=== PATIENT | female | born 1935 | race Caucasian/White ===

== ENCOUNTER → 2017-02-18 | Day surgery (SDC) | payer MEDICARE, BC ==
[2017-02-13 11:47] VITALS: BMI 50.6
[~2017-02-18] MED LIST: ALPRAZolam 0.25 MG TAB PO PRN; ASPIRIN 325 MG TAB PO ONE; IODIXANOL 320 MG/ML 100 ML INTRAARTER ONE; LIDOCAINE 2% INJ 20 MG/ML SQ ONE; MIDAZOLAM 2 MG/2 ML VIAL IV ONE; MIDAZOLAM 2 MG/2 ML VIAL IVP ONE; MIDAZOLAM 2 MG/2 ML VIAL ONE; RX INFO: IV CONTRAST WAS GIVEN 1 EACH MISC MISCELLANE PRN; SODIUM CHLORIDE 0.9% 1,000 ML IV SCH; SODIUM CHLORIDE 0.9% 1,000 ML in EMPTY BAG 1 BAG IV ONE; VERAPAMIL SYRINGE (5 MG/10 ML) INTRAARTER ONE; diphenhydrAMINE 50 MG/ML 1 ML VIAL IVP ONE; fentaNYL (PF) 50 MCG/ML 2 ML AMP IVP ONE; fentaNYL (PF) 50 MCG/ML 2 ML AMP ONE
--- NOTE | 2017-02-18 08:50 | P.PCN ---
Date of Procedure: 02/18/17 Preoperative Diagnosis: Severe aortic stenosis, hypertension and hypercholesterolemia Postoperative Diagnosis: Severe aortic stenosis Procedure(s) Performed: Implants: Disposition: other (Moderate conscious sedation was provided with Versed and Benadryl for 30 minutes. Oxygenation was monitored closely.) Indications for Procedure: Operative Findings: Description of Procedure: Left heart catheterization and coronary angiography next sentence performed by Dr. JANICE Calderon Clinical information: This patient was brought in for a cardiac catheterization and transesophageal echo. Risks benefits options were explained to her. She has severe aortic stenosis with worsening gradient increasing shortness of breath also obesity moderate pulmonary hypertension probable sleep apnea syndrome. She also has hypertension and hypercholesterolemia Procedure note: Under aseptic precaution since local anesthesia a 6-Italian introducer was placed in the right radial artery. I made one catheter was used to perform selective coronary angiography of the right coronary artery. I used a JL4 catheter for left coronary artery. A pigtail catheter was used to cross the aortic valve. Hemodynamics were measured. A sheath was taken out and TR band applied as per protocol. The oxygenation in her fingers was good with a saturation of 93%. Good pulse was noted. Patient was sent to her room in stable condition. Findings were discussed with her. She does not have any significant obstructive CAD. She has a right dominant system. There is evidence of severe aortic stenosis with a mean gradient of 36 mmHg. Findings were discussed with the patient and her family. She will have a transesophageal echo today and then be discharged later on and I will see her in the office on the 13th of this month. Except Cardiac catheterization findings: The left ventricle end-diastolic pressure was 17 mmHg. The peak gradient on pullback was 56 mmHg and the mean gradient as obtained by the computer was 36 mmHg suggestive of severe aortic stenosis. Right heart catheterization was not performed. Coronary angiography findings: Right coronary artery dominant vessel free of significant disease, distally bifurcates into PDA and PLV both of which supply a fair amount of myocardium. No significant disease in the dominant RCA. Left main coronary artery this is a sharp patent disease-free vessel that bifurcates into LAD and circumflex. Left anterior descending coronary artery good caliber vessel extends along the anterior wall gives off septal and diagonal branches and runs all the way to the apex. There are minor irregularities but no significant obstructive CAD as noted. Left posterior circumflex coronary artery this is a nondominant vessel that gives off a single obtuse marginal that runs laterally there are minor irregularities. This is a fair caliber fair distribution vessel. There is a vessel in the AV groove that has diffuse disease but no significant stenosis is noted Left ventricular, was not performed. She tolerated the procedure well without complications. She will have a QUINCY at noon and will be discharged at 5 PM if stable and I will see her in the office next week.
[2017-02-18 08:53] VITALS: TEMP 98
[2017-02-18] MEDS: BENZOCAINE SPRAY 100 APPLIC/CAN MUCOUS MEM ONE ×2 (10:10→10:54)
--- NOTE | 2017-02-18 10:45 | P.OP ---
Date of Procedure: 02/18/17 Preoperative Diagnosis: PROCEDURE: Transesophageal echocardiogram. INDICATION: aortic stenosis. PROCEDURE NOTE: After obtaining informed consent, transesophageal echocardiogram was performed in the left lateral position using an Omniplane probe. Local and IV sedation were obtained using Xylocaine spray, 1 mg of Versed and 25 mcg of fentanyl. The patient tolerated the procedure well without any obvious immediate complications. total sedation time was 15 minutes FINDINGS: Mitral valve: [mitral calcification with moderate central mitral regurgitation] . Aortic valve: [3 leaflet valve heavily calcified with severe restriction in leaflet mobility and a valve area of 0.6 cmby planimetry technique there is mild regurgitation noted]. Tricuspid:valve: [mild tricuspid regurgitation] Pulmonary valve: [normal]. Left ventricle: [Normal size and systolic function] with an ejection fraction of [60]%. Left atrium: [enlarged] Right atrium [mildly enlarged]. Left Artial Appendage: [] Interatrial septum: [There is no evidence of zmiab-us-icyl shunt by agitated saline contrast study. there is evidence of rrbx-vi-[id number] shunt by agitated saline contrast study]. Aorta: [ascending aorta appears dilated measures 4 cmthere is mild atherosclerotic changes noted]. CONCLUSIONS: 1. [severe aortic stenosis]. 2. [normal LV function]. 3. [czlq-zr-[id number] shunt across the interatrial septum 4. Moderate mitral regurgitation]. Postoperative Diagnosis: Procedure(s) Performed: Implants: Anesthesia: MAC Indications for Procedure: Operative Findings: Description of Procedure:
[2017-02-18 11:04] VITALS: RESP 16
[2017-02-18 16:11] VITALS: BP 144/62; PULSE 64
== END ==
LOC: CATHCVL 06:22 → EDSEX 12:00
PROVIDERS: ATTEND Internal Medicine Interventional Cardiology
DX: I08.3 Combined rheumatic disorders of mitral, aortic and tricuspid valves (principal); I10 Essential (primary) hypertension; G47.33 Obstructive sleep apnea (adult) (pediatric); E78.00 Pure hypercholesterolemia, unspecified; E78.5 Hyperlipidemia, unspecified; I27.2 Other secondary pulmonary hypertension; E66.9 Obesity, unspecified; Z79.899 Other long term (current) drug therapy; Z87.891 Personal history of nicotine dependence
CPT/HCPCS: 93312; 93320; 93325; 93458; 99152; 99153; C1769; C1894; J2001; J2250; J1200; Q9967; J3010; J1644

== ENCOUNTER 2020-02-22 12:47 | Inpatient (IN) | payer MEDICARE, BC ==
--- NOTE | 2020-02-22 13:12 | ED ---
General Adult HPI - General Chief complaint: Arrhythmia/Palpitations Stated complaint: Cardiac Problems Time Seen by Provider: 02/22/20 13:03 Source: patient Mode of arrival: EMS Limitations: no limitations - History of Present Illness Initial comments: Dictation was produced using [employer] dictation software. please excuse any grammatical, word or spelling errors. This patient was cared for during a federal and state declared state of emergency secondary to Covid 19 Chief Complaint: 84 yo female past medical history of dyslipidemia hypertension, thyroid disorder transfer [facility] for bradycardia History of Present Illness: 84-year-old female she was transferred here from [facility] for bradycardia. Patient states that her son convinced her to go get Covid testing earlier today. She did get the test however he started talking to the people at the [facility]. They recommended the patient doctor be notified. The ended up getting in contact with patient's travel manager. They were directed to [facility] were she was evaluated. Patient was having heart rates between 25 and 40. They did get in contact with patient's travel manager. Patient's travel manager recommended the patient be transferred to our emergency department for inpatient admission possible pacemaker. Patient states she's been feeling generally weak for the last 3-4 weeks. She has no pain complaints. She states that her weakness is more apparent with exertional activity. Patient does take metoprolol. The ROS documented in this emergency department record has been reviewed and confirmed by me. Those systems with pertinent positive or negative responses have been documented in the HPI. All other systems are other negative and/or noncontributory. PHYSICAL EXAM: General Impression: Alert and oriented x3, not in acute distress HEENT: Normocephalic atraumatic, extra-ocular movements intact, pupils equal and reactive to light bilaterally, mucous membranes moist. Cardiovascular: Heart regular rate and rhythm Chest: Able to complete full sentences, no retractions, no tachypnea Abdomen: abdomen soft, non-tender, non-distended, no organomegaly Musculoskeletal: Pulses present and equal in all extremities, no peripheral edema Motor: no focal deficits noted Neurological: CN II-XII grossly intact, no focal motor or sensory deficits noted Skin: Intact with no visualized rashes Psych: Normal affect and mood ED course: 82yo presents with bradycardia. Patient does have symptoms although they appear to be mild. She does not complain of any symptoms while at rest. As upon arrival shows heart rate of 33, 91% room air rest vital signs within acceptable limits. Chest her documentation was reviewed. Patient's metabolic panel shows normal electrolytes. She does have elevated renal markers. EKG performed in our emergency department showed findings concerning for high degree heart block. Patient was placed in ICU with consultation to cardiology. This patient case with Dr. Pierson is willing to accept patient care. EKG interpretation: Ventricular rate 31, sinus rhythm, QRS 104, QTC 399. Concern for high degree heart block. - Related Data Home Medications Medication Instructions Recorded Confirmed Ascorbic Acid [Vitamin C] 3,000 mg PO DAILY 02/13/17 02/18/17 Aspirin EC [Ecotrin Low Dose] 81 mg PO DAILY 02/13/17 02/18/17 Benazepril [Lotensin] 10 mg PO DAILY 02/13/17 02/18/17 Calcium Citrate/Vitamin D3 3 each PO HS 02/13/17 02/18/17 [Calcitrate + Vit D Caplet] Ipratropium-Albuterol Nebulize 3 ml INHALATION QID 02/13/17 02/18/17 [Duoneb 0.5 mg-3 mg/3 ml Soln] Levothyroxine Sodium [Synthroid] 125 mcg PO DAILY 02/13/17 02/18/17 Loratadine [Claritin] 10 mg PO DAILY 02/13/17 02/18/17 Multivit/Folic Acid/Vit K1 1 each PO DAILY 02/13/17 02/18/17 [One-A-Day Women's 50 Plus Tab] [place]-3 Fatty Acids [[place]-3] 3,000 mg PO DAILY 02/13/17 02/18/17 Potassium Chloride [Klor-Con 8] 8 meq PO Q2D 02/13/17 02/18/17 Pyridoxine HCl (Vitamin B6) 100 mg PO DAILY 02/13/17 02/18/17 [Vitamin B-6] Simvastatin [Zocor] 40 mg PO HS 02/13/17 02/18/17 Torsemide [Demadex] 20 mg PO DAILY 02/13/17 02/18/17 traMADol HCL [Ultram] 50 mg PO Q4HR PRN 02/13/17 02/18/17 Metoprolol Tartrate 25 mg PO DAILY 02/18/17 02/18/17 Allergies Allergy/AdvReac Type Severity Reaction Status Date / Time No Known Allergies Allergy Verified 02/22/20 12:54 Review of Systems ROS Statement: Those systems with pertinent positive or pertinent negative responses have been documented in the HPI. ROS Other: All systems not noted in ROS Statement are negative. Past Medical History Past Medical History: Cancer, COPD, Hyperlipidemia, Hypertension, Sleep Apnea/CPAP/BIPAP, Thyroid Disorder Additional Past Medical History / Comment(s): HX COLON AND UTERINE CANCER. USES CPAP-INSTRUCTED TO BRING AND LEAVE IN CAR IN CASE OF ADMISSION. PAST HX BLEEDING ULCER History of Any Multi-Drug Resistant Organisms: None Reported Past Surgical History: Appendectomy, Bowel Resection, Cholecystectomy, Hernia Repair, Hysterectomy, Joint Replacement, Orthopedic Surgery, Tonsillectomy Additional Past Surgical History / Comment(s): COLONOSCOPY AND EGD. LT SHOULDER REPLACEMENT. BILAT TKA. HERNIA REPAIR X 4. OVARIAN CYSTECTOMY X 2. CTR- BILAT Past Anesthesia/Blood Transfusion Reactions: No Reported Reaction Past Psychological History: Anxiety Smoking Status: Former smoker Past Alcohol Use History: None Reported Past Drug Use History: None Reported - Past Family History Mother Family Medical History: No Reported History General Exam Limitations: no limitations Course Vital Signs 02/22/20 12:54 Temperature 98.3 F Pulse Rate 33 L Respiratory 16 Rate Blood Pressure 133/110 O2 Sat by Pulse 91 L Oximetry Disposition Clinical Impression: Heart block Disposition: ADMITTED IP TO THIS HOSP Condition: Fair Referrals: Jerome Monroe MD [Primary Care Provider] - 1-2 days Decision Time: 13:44
[2020-02-22] MEDS ORDERED: NALOXONE 0.4 MG/ML 1 ML VIAL IV PRN (13:38)
[2020-02-22] MEDS ORDERED: SODIUM CHLORIDE 0.9% 1,000 ML IV SCH ×5 (13:45→19:45)
[2020-02-22 14:13] LABS: INR 1.1 (<1.2); Partial Thromboplastin Time 23.5 sec (22.0-30.0); Prothrombin Time 10.9 sec (9.0-12.0)
[2020-02-22] MEDS ORDERED: IV FLUID CONTINUATION 900 ML IV ONE (17:15)
--- NOTE | 2020-02-22 17:20 | P.CRDCN ---
History of Present Illness Consult date: 02/22/20 History of present illness: This is a 84-year-old female with history of hypertension, COPD and also aortic stenosis who had aortic valve replacement with percutaneous approach. Patient was being treated with metoprolol 50 mg morning and 25 in the evening. Patient went to the [facility] with complaints of shortness of breath and fatigue. Patient has occasional dizziness. She also significant edema of the legs. Patient was found to be in complete AV dissociation. Patient was transferred to [facility] for further evaluation. Patient is having heart rate is a 30 with complete AV dissociation. Patient is advised to have temporary pacemaker. Patient may need permanent pacemaker if heart rate doesn't improve after stopping the beta blockers. Further recommendation depending upon the clinical course. Review of Systems As per the chart Past Medical History Past Medical History: Cancer, COPD, Hyperlipidemia, Hypertension, Sleep Apnea/CPAP/BIPAP, Thyroid Disorder Additional Past Medical History / Comment(s): HX COLON AND UTERINE CANCER. USES CPAP-INSTRUCTED TO BRING AND LEAVE IN CAR IN CASE OF ADMISSION. PAST HX BLEEDING ULCER History of Any Multi-Drug Resistant Organisms: None Reported Past Surgical History: Appendectomy, Bowel Resection, Cholecystectomy, Hernia Repair, Hysterectomy, Joint Replacement, Orthopedic Surgery, Tonsillectomy Additional Past Surgical History / Comment(s): COLONOSCOPY AND EGD. LT SHOULDER REPLACEMENT. BILAT TKA. HERNIA REPAIR X 4. OVARIAN CYSTECTOMY X 2. CTR-BILAT Past Anesthesia/Blood Transfusion Reactions: No Reported Reaction Past Psychological History: Anxiety Smoking Status: Former smoker Past Alcohol Use History: None Reported Additional Past Alcohol Use History / Comment(s): QUIT SMOKING IN 1974 Past Drug Use History: None Reported - Past Family History Mother Family Medical History: No Reported History Medications and Allergies Home Medications Medication Instructions Recorded Confirmed Type Ascorbic Acid [Vitamin C] 1,000 mg PO DAILY 02/13/17 02/22/20 History Aspirin EC [Ecotrin Low Dose] 81 mg PO DAILY 02/13/17 02/22/20 History Benazepril [Lotensin] 10 mg PO DAILY 02/13/17 02/22/20 History Calcium Citrate/Vitamin D3 3 tab PO DAILY 02/13/17 02/22/20 History [Calcitrate + Vit D Caplet] Ipratropium-Albuterol Nebulize 3 ml INHALATION RT-QID 02/13/17 02/22/20 History [Duoneb 0.5 mg-3 mg/3 ml Soln] Levothyroxine Sodium [Synthroid] 125 mcg PO DAILY 02/13/17 02/22/20 History Pyridoxine HCl (Vitamin B6) 100 mg PO DAILY 02/13/17 02/22/20 History [Vitamin B-6] Simvastatin [Zocor] 40 mg PO HS 02/13/17 02/22/20 History Torsemide [Demadex] 20 mg PO DAILY 02/13/17 02/22/20 History traMADol HCL [Ultram] 50 mg PO Q4HR PRN 02/13/17 02/22/20 History Budesonide [Pulmicort] 0.5 mg INHALATION RT-BID 02/22/20 02/22/20 History Clopidogrel Bisulfate [Plavix] 75 mg PO DAILY 02/22/20 02/22/20 History Metoprolol Tartrate [Lopressor] 25 mg PO HS 02/22/20 02/22/20 History Metoprolol Tartrate [Lopressor] 50 mg PO DAILY 02/22/20 02/22/20 History Montelukast [Singulair] 10 mg PO DAILY 02/22/20 02/22/20 History Multivitamins, Thera [Multivitamin 1 tab PO DAILY 02/22/20 02/22/20 History (formulary)] [place]-3 Fatty Acids/Fish Oil [Fish 1 cap PO DAILY 02/22/20 02/22/20 History Oil 1,000 mg Softgel] Potassium Chloride ER [K-Dur 10] 10 meq PO Q48H 02/22/20 02/22/20 History Allergies Allergy/AdvReac Type Severity Reaction Status Date / Time No Known Allergies Allergy Verified 02/22/20 15:14 Physical Exam Vitals: Vital Signs Temp Pulse Pulse Resp BP BP Pulse Ox 02/22/20 16:00 98 F 32 L 20 147/84 97 02/22/20 15:30 132/80 02/22/20 15:01 32 L 18 138/85 99 02/22/20 12:54 98.3 F 33 L 16 133/110 91 L Intake and Output 02/22/20 02/22/20 02/22/20 06:59 14:59 22:59 Intake Total 240 Output Total 30 Balance 210 Intake: IV 240 0.9NS 240 Output: Urine 30 Other: Weight 143.29 kg GENERAL EXAM: Patient is alert and oriented and doesn't appear to be in any acute distress HEENT: Normocephalic. Normal reaction of pupils, equal size, normal range of extraocular motion. No erythema or exudates in the throat. NECK: No masses, no nuchal rigidity. CHEST: No chest wall deformity. LUNGS: Distant sounds HEART: Distant heart sounds ABDOMEN: No hepatosplenomegaly, normal bowel sounds, no guarding or rigidity. SKIN: No rashes CENTRAL NERVOUS SYSTEM: No focal deficits. EXTREMITIES: Bilateral edema Results Cardiac Enzymes 02/22/20 Range/Units 13:31 Troponin I 0.125 H* (0.000-0.034) ng/mL Coagulation 02/22/20 Range/Units 13:31 PT 10.9 (9.0-12.0) sec APTT 23.5 (22.0-30.0) sec Intake and Output 02/22/20 02/22/20 02/22/20 06:59 14:59 22:59 Intake Total 240 Output Total 30 Balance 210 Intake: IV 240 0.9NS 240 Output: Urine 30 Other: Weight 143.29 kg Patient Weight 02/23/20 06:59 Weight 143.29 kg EKG Interpretations (text) Sinus rhythm with complete A-V dissociation Assessment and Plan (1) Atrioventricular dissociation, complete Current Visit: Yes Status: Acute Code(s): I45.89 - OTHER SPECIFIED CONDUCTION DISORDERS SNOMED Code(s): 58212770 (2) Essential hypertension Current Visit: Yes Status: Acute Code(s): I10 - ESSENTIAL (PRIMARY) HYPERTENSION SNOMED Code(s): 20812132 (3) History of aortic valve replacement Current Visit: Yes Status: Acute Code(s): Z95.2 - PRESENCE OF PROSTHETIC HEART VALVE SNOMED Code(s): 2975637087291 (4) COPD (chronic obstructive pulmonary disease) Current Visit: Yes Status: Acute Code(s): J44.9 - CHRONIC OBSTRUCTIVE PULMONARY DISEASE, UNSPECIFIED SNOMED Code(s): 22309274 Plan: We will proceed with temporary pacemaker implantation. We will get an echocardiogram. Will discontinue beta blockers. If patient continues to be in high degree AV block, patient may need permanent pacemaker implantation
[2020-02-22] MEDS ORDERED: LIDOCAINE 1% INJ 10MG/ML (20 ML MDV) SQ ONE (17:29)
--- NOTE | 2020-02-22 18:01 | P.PCN ---
Date of Procedure: 02/22/20 Preoperative Diagnosis: Complete A-V dissociation and severe bradycardia Postoperative Diagnosis: The same Procedure(s) Performed: Temporary pacemaker insertion Description of Procedure: Patient was brought to the lab in a fasting state. The patient is prepped and draped in the usual fashion. The right groin is infiltrated with lidocaine. The femoral vein was entered using ultrasound guidance. A 6-Irish sheath was left in place. A 5-Irish balloontipped pacemaker wire was advanced and was placed near the floor of the right ventricle. Satisfactory thresholds obtained. The sheath was sutured to the floor. The pacemaker is set at a rate of 50 and output of 3. Patient tolerated the procedure well. Successful implantation of temporary pacemaker. Plan: Patient will monitored in ICU. Beta blockers will be held. Most probably patient may need a permanent pacemaker
--- NOTE | 2020-02-22 21:48 | P.HPIM ---
History of Present Illness H&P Date: 02/22/20 Chief Complaint: Weak and tired History of presenting complaint: This is a very pleasant 84-year-old patient of Dr. Jerome Ohara. Chronic stable medical conditions include COPD, hypertension, hyperlipidemia, sleep apnea, hypothyroid. Does use CPAP. Patient for last 3-4 weeks has been feeling rather weak and tired. Some shortness of breath. Also has had some chronic lower extremity edema. Patient is transferred here from [facility] for low heart rate. Her son and also to go down there for COVID testing earlier today. When she started talking about her symptoms of the people today they sent her to the hospital. Heart rate then was anywhere between 20s to 40s. Patient's wood last maker was contacted who sent the patient down to the ER. An external temporary pacemaker was initially put in. In the R Dr. Goyal placed a transvenous catheter. No chest pain. No fever no chills. Review of systems: GEN.: Tired EYES: None HEENT: None NECK: None RESPIRATORY: Short of breath CARDIOVASCULAR: Some edema GASTROINTESTINAL: None GENITOURINARY: None MUSCULOSKELETAL: Joint pains LYMPHATICS: None HEMATOLOGICAL: None PSYCHIATRY: None NEUROLOGICAL: None Past medical history to include: COPD 2, hypertension, hyperlipidemia, obstructive sleep apnea uses CPAP, hypothyroid, on a new brain cancer, bleeding peptic ulcer disease Social history: Patient stopped smoking in 2074. Lives alone. No headache or history. Family history: Reviewed, noncontributory to presentation Physical examination: VITAL SIGNS: 98.3, 33, 16, 138/85, 91% on room air GENERAL: BMI 34.2, laying in bed, awake a bit tired. EYES: Pupils equal. Conjunctiva normal. HEENT: External appearance of nose and ears normal, oral cavity grossly normal. NECK: Short thick neck unable to assess JVD, no mass palpable. HEART: First and second heart sounds are normal; nonpitting and mild edema. LUNGS: Respiratory rate increased; decreased breath sounds. ABDOMEN: Soft, nontender, liver spleen not palpable, no masses palpable. PSYCH: Alert and oriented x3; mood and affect normal MUSCULAR skeletal: Evidence of OA especially in the hands. NEUROLOGICAL: Cranial nerves grossly intact; no facial asymmetry, power and sensation grossly intact. LYMPHATICS: No lymph nodes palpable in the axilla and neck Investigations: Troponin I 0.125 EKG tracing showed complete AV dissociation with a heart rate of 30. 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 -Morbid obesity BMI 54.2 -Troponin leak due to hemodynamic mismatched no evidence of acute Augustin syndrome. -COPD in an ex-smoker -Hyperlipidemia -Essential hypertension -Obstructive sleep apnea uses CPAP -Hypothyroid -Primary osteoarthritis Plan: Patient admitted. This is beta blockers have been held. Initially external pacemaker was placed and later on Dr. Goyal placed a transvenous pac emaker. Home medications to be resumed. Telemetry is on. Patient is in the ICU. If heart rate does not pepper picker being off the beta shakeel will need a permanent pacemaker. Care was discussed with the patient. Questions were answered. Past Medical History Past Medical History: Cancer, COPD, Hyperlipidemia, Hypertension, Sleep Apnea/CPAP/BIPAP, Thyroid Disorder Additional Past Medical History / Comment(s): HX COLON AND UTERINE CANCER. USES CPAP-INSTRUCTED TO BRING AND LEAVE IN CAR IN CASE OF ADMISSION. PAST HX BLEEDING ULCER History of Any Multi-Drug Resistant Organisms: None Reported Past Surgical History: Appendectomy, Bowel Resection, Cholecystectomy, Hernia Repair, Hysterectomy, Joint Replacement, Orthopedic Surgery, Tonsillectomy Additional Past Surgical History / Comment(s): COLONOSCOPY AND EGD. LT SHOULDER REPLACEMENT. BILAT TKA. HERNIA REPAIR X 4. OVARIAN CYSTECTOMY X 2. CTR-BILAT Past Anesthesia/Blood Transfusion Reactions: No Reported Reaction Past Psychological History: Anxiety Smoking Status: Former smoker Past Alcohol Use History: None Reported Additional Past Alcohol Use History / Comment(s): QUIT SMOKING IN 1974 Past Drug Use History: None Reported - Past Family History Mother Family Medical History: No Reported History Medications and Allergies Home Medications Medication Instructions Recorded Confirmed Type Ascorbic Acid [Vitamin C] 1,000 mg PO DAILY 02/13/17 02/22/20 History Aspirin EC [Ecotrin Low Dose] 81 mg PO DAILY 02/13/17 02/22/20 History Benazepril [Lotensin] 10 mg PO DAILY 02/13/17 02/22/20 History Calcium Citrate/Vitamin D3 3 tab PO DAILY 02/13/17 02/22/20 History [Calcitrate + Vit D Caplet] Ipratropium-Albuterol Nebulize 3 ml INHALATION RT-QID 02/13/17 02/22/20 History [Duoneb 0.5 mg-3 mg/3 ml Soln] Levothyroxine Sodium [Synthroid] 125 mcg PO DAILY 02/13/17 02/22/20 History Pyridoxine HCl (Vitamin B6) 100 mg PO DAILY 02/13/17 02/22/20 History [Vitamin B-6] Simvastatin [Zocor] 40 mg PO HS 02/13/17 02/22/20 History Torsemide [Demadex] 20 mg PO DAILY 02/13/17 02/22/20 History traMADol HCL [Ultram] 50 mg PO Q4HR PRN 02/13/17 02/22/20 History Budesonide [Pulmicort] 0.5 mg INHALATION RT-BID 02/22/20 02/22/20 History Clopidogrel Bisulfate [Plavix] 75 mg PO DAILY 02/22/20 02/22/20 History Metoprolol Tartrate [Lopressor] 25 mg PO HS 02/22/20 02/22/20 History Metoprolol Tartrate [Lopressor] 50 mg PO DAILY 02/22/20 02/22/20 History Montelukast [Singulair] 10 mg PO DAILY 02/22/20 02/22/20 History Multivitamins, Thera [Multivitamin 1 tab PO DAILY 02/22/20 02/22/20 History (formulary)] Agu[place]-3 Fatty Acids/Fish Oil [Fish 1 cap PO DAILY 02/22/20 02/22/20 History Oil 1,000 mg Softgel] Potassium Chloride ER [K-Dur 10] 10 meq PO Q48H 02/22/20 02/22/20 History Allergies Allergy/AdvReac Type Severity Reaction Status Date / Time No Known Allergies Allergy Verified 02/22/20 15:14 Physical Exam Vitals: Vital Signs Temp Pulse Pulse Resp BP BP Pulse Ox 02/22/20 19:00 49 L 16 116/92 95 02/22/20 18:36 50 L 20 116/92 94 L 02/22/20 18:00 50 L 160/72 02/22/20 16:00 98 F 32 L 20 147/84 97 02/22/20 15:30 132/80 02/22/20 15:01 32 L 18 138/85 99 02/22/20 12:54 98.3 F 33 L 16 133/110 91 L Intake and Output 02/22/20 02/22/20 02/22/20 06:59 14:59 22:59 Intake Total 550 Output Total 540 Balance 10 Intake: IV 450 0.9NS 320 0.9NS sheath 80 Oral 100 Output: Urine 540 Other: Voiding Method Indwelling Catheter Weight 143.29 kg Results Labs: Abnormal Lab Results - Last 24 Hours (Table) 02/22/20 Range/Units 13:31 Troponin I 0.125 H* (0.000-0.034) ng/mL Thrombosis Risk Factor Assmnt - Choose All That Apply Other Risk Factors: Yes Each Risk Factor Represents 3 Points: Age 75 years or older Thrombosis Risk Factor Assessment Total Risk Factor Score: 3 Thrombosis Risk Factor Assessment Level: Moderate Risk
[2020-02-23 06:14] LABS: Albumin 3.2 g/dL (3.5-5.0); Calcium 8.6 mg/dL (8.4-10.2); Potassium 4.5 mmol/L (3.5-5.1); Total Bilirubin 0.6 mg/dL (0.2-1.3)
[2020-02-23] MEDS: LEVOTHYROXINE 125 MCG TAB PO SCH (06:58)
[2020-02-23] MEDS: traMADol 50 MG TAB PO PRN ×3 (06:58→17:47)
[2020-02-23] MEDS: ASPIRIN 81 MG PO SCH ×2 (08:55→09:49)
[2020-02-23] MEDS: ASCORBIC ACID 500 MG TAB PO SCH (08:56)
[2020-02-23] MEDS: LISINOPRIL 10 MG TAB PO SCH (08:56)
[2020-02-23] MEDS: MONTELUKAST 10 MG TAB PO SCH (08:56)
[2020-02-23] MEDS: POTASSIUM CHLORIDE ER 10 MEQ TAB.ER.PRT PO SCH (08:57)
[2020-02-23] MEDS ORDERED: LISINOPRIL 10 MG TAB PO SCH ×2 (09:00)
[2020-02-23] MEDS ORDERED: POTASSIUM CHLORIDE ER 10 MEQ TAB.ER.PRT PO SCH (09:00)
[2020-02-23] MEDS ORDERED: TORSEMIDE 20 MG TAB PO SCH ×2 (09:00)
[2020-02-23] MEDS ORDERED: CLOPIDOGREL 75 MG TAB PO SCH (09:00)
[2020-02-23] MEDS ORDERED: SODIUM CHLORIDE 0.9% 1,000 ML IV SCH (09:30)
[2020-02-23] MEDS ORDERED: ceFAZolin 1,000 MG in SODIUM CHLORIDE 0.9% IRRIGATIO 250 ML IRRIGATION ONE (09:45)
--- NOTE | 2020-02-23 10:23 | P.PN ---
Subjective Progress Note Date: 02/23/20 This is a 84-year-old female was admitted with high degree AV block with AV dissociation. Had a temporary pacemaker insertion. Still having high degree AV block. Patient is going to have permanent pacemaker implantation by Dr. JANICE Calderon this afternoon. Patient is diuresing well. Denies any chest pain. Mildly short of breath. Having difficulty laying flat. Objective - Vital Signs Vital signs: Vital Signs Temp 97.6 F 02/23/20 08:00 Pulse 49 L 02/23/20 09:00 Resp 49 H 02/23/20 09:00 BP 147/87 02/23/20 09:00 Pulse Ox 90 L 02/23/20 09:00 Intake & Output 02/22/20 02/23/20 02/23/20 18:59 06:59 18:59 Intake Total 430 720 280 Output Total 130 1135 130 Balance 300 -415 150 Weight 143.29 kg 144.8 kg Intake: IV 330 480 60 0.9NS 260 240 0.9NS sheath 20 240 60 Oral 100 240 220 Output: Urine 130 1135 130 Other: Voiding Method Indwelling Catheter Indwelling Catheter Indwelling Catheter - Exam GENERAL EXAM: Patient is alert and oriented and having difficulty laying flat HEENT: Normocephalic. Normal reaction of pupils, equal size, normal range of extraocular motion. No erythema or exudates in the throat. NECK: No masses, no nuchal rigidity. CHEST: No chest wall deformity. LUNGS: Equal air entry with no crackles or wheeze. HEART: S1 and S2 normal with no audible mumurs or gallops. Regular rhythm, femorals equal on both sides.. ABDOMEN: No hepatosplenomegaly, normal bowel sounds, no guarding or rigidity. SKIN: No rashes CENTRAL NERVOUS SYSTEM: No focal deficits. EXTREMITIES: No cyanosis, clubbing or edema. - Labs CBC & Chem 7: 02/23/20 05:35 Labs: Abnormal Lab Results - Last 24 Hours (Table) 02/22/20 02/23/20 02/23/20 Range/Units 13:31 05:35 05:35 Sodium 136 L (137-145) mmol/L BUN 51 H (7-17) mg/dL Creatinine 1.46 H (0.52-1.04) mg/dL Glucose 122 H (74-99) mg/dL AST 38 H (14-36) U/L Troponin I 0.125 H* 0.117 H* (0.000-0.034) ng/mL Total Protein 6.0 L (6.3-8.2) g/dL Albumin 3.2 L (3.5-5.0) g/dL Assessment and Plan (1) Atrioventricular dissociation, complete Current Visit: Yes Status: Acute Code(s): I45.89 - OTHER SPECIFIED CONDUCTION DISORDERS SNOMED Code(s): 09119797 (2) Essential hypertension Current Visit: Yes Status: Acute Code(s): I10 - ESSENTIAL (PRIMARY) HYPERTENSION SNOMED Code(s): 65966624 (3) History of aortic valve replacement Current Visit: Yes Status: Acute Code(s): Z95.2 - PRESENCE OF PROSTHETIC HEART VALVE SNOMED Code(s): 0397392380349 (4) COPD (chronic obstructive pulmonary disease) Current Visit: Yes Status: Acute Code(s): J44.9 - CHRONIC OBSTRUCTIVE PULMONARY DISEASE, UNSPECIFIED SNOMED Code(s): 73521619 Plan: Status post temporary pacemaker implantation for high degree AV block. Going for permanent pacemaker implantation today
[2020-02-23] MEDS: SODIUM CHLORIDE 0.9% 1,000 ML IV SCH (11:19)
--- NOTE | 2020-02-23 11:57 | XR ---
EXAMINATION TYPE: XR chest 1V portable DATE OF EXAM: 02/23/2020 COMPARISON: NONE HISTORY: Congestive heart failure, bradycardia TECHNIQUE: Single frontal view of the chest is obtained. FINDINGS: Patient is rotated, technique is apical lordotic. The heart is markedly enlarged. Intersti tium is sensitive vascularity are prominent. There is no pneumothorax. Aorta is dense. Prominence of the pulmonary artery may be indicative of pulmonary artery hypertension. Patient is post left shoulde r arthroplasty. There are overlying cardiac leads and artifacts. IMPRESSION: Correlate for congestive heart failure, pulmonary venous hypertension and interstitial e levi. Possible pulmonary artery hypertension.
--- NOTE | 2020-02-23 12:45 | CONS ---
CONSULTATION PULMONARY/CRITICAL CARE CONSULTATION: DATE OF SERVICE: 02/23/2020 REASON FOR CONSULTATION: ICU management. This is an 84-year-old female who sees Dr. Monroe in [place]. She was apparently transferred from [facility] for bradycardia. The patient apparently was found to have third-degree heart block. She apparently was going to go get a COVID test. Apparently, the patient developed some shortness of breath and was seen on EKG to have bradycardia and possible heart block. For that reason, the patient was directed to the emergency room at [facility] and then transferred here for further evaluation. Her heart rates were apparently between 25 and 40 beats per minute. The patient was transferred here and had a temporary venous pacemaker placed and is apparently going to have a permanent pacemaker today. Currently, the patient is lying flat on her back. She states she is a bit short of breath. She is not having any pain other than pain caused by the Chaidez catheter and pain by the temporary pacemaker in the right groin area. Other than that, she is doing reasonably well. She denies any fever or chills. She denies any shortness of breath. She denies any cough, wheezing, or phlegm production. She denies any nausea, vomiting, diarrhea, or abdominal pain. HOME MEDICATIONS: Reviewed. She is on ascorbic acid, aspirin, benazepril, Caltrate with vitamin D, DuoNeb, levothyroxine, loratadine, multivitamins, omega-3 fatty acids, potassium chloride, vitamin B6, Zocor, Demadex, Ultram, and metoprolol. ALLERGIES: Denied. MEDICAL HISTORY: Apparently positive for hypertension, hyperlipidemia, sleep apnea, COPD, hypothyroidism, and colon and uterine cancer. She also has history of bleeding ulcers. SURGICAL HISTORY: Includes appendectomy, bowel resection, cholecystectomy, hernia repair, hysterectomy, tonsillectomy, colonoscopy and EGD, left shoulder replacement, bilateral total knee arthroplasty, hernia repair x4, ovarian cystectomies x2, and some other minor procedures. SOCIAL HISTORY: Positive for previous tobacco use. She was never heavy smoker. She denies any alcohol use or illicit drug use. Mother's family history is remarkable. Does not know her father's medical history. REVIEW OF SYSTEMS: CONSTITUTIONAL: Negative. NEUROLOGIC: Negative. HEENT: Negative. CARDIOVASCULAR: Negative. PULMONARY: Shortness of breath. GI: Negative. : Negative. RHEUMATOLOGIC: Negative. IMMUNOLOGIC: Negative. DERMATOLOGIC: Negative. Current vital signs are reviewed, temperature is 97.6, heart rate 49, respiratory rate is 18, blood pressure 168/67 mean 100, saturations a couple of L at 94%. Appears in no acute distress. HEENT: Examination is grossly unremarkable. Nasal O2 noted. NECK: Supple,. full range of motion. No adenopathy. Neck veins are flat. CARDIOVASCULAR: Examination reveals regular rhythm and rate. Heart rate 60. S1, S2 normal. No distinct murmur. Heart sounds are distant. LUNGS: Reveal mostly clear breath sounds. No wheezes or rhonchi. A few scattered crackles. Breath sounds equal bilaterally though. ABDOMEN: Obese. Bowel sounds are heard. EXTREMITIES: Intact. Slight edema noted. There are some mild chronic venostasis changes. No cyanosis or clubbing. Skin is otherwise without rash. NEUROLOGIC: Examination is brief but nonfocal. LABS: Reviewed. PT 10.9, INR 1.1, PTT 23.5. Sodium 136, potassium chloride, CO2 all normal. Anion gap is 4. BUN and creatinine were 50 and 1.46. Glucose 122. Troponins were 0.125 and 0.117. Microbiology is pending or negative. A chest x-ray shows some mild fluid overload changes. She has cardiomegaly. The pacemaker patches over her right chest area. There may be small effusions and/or atelectasis or infiltrate at the bases. Medications are reviewed. Currently, she is on ascorbic acid, aspirin, Lipitor, levothyroxine, lisinopril, Singulair, Narcan, potassium chloride, saline IV, Demadex, and TRAMADOL. ASSESSMENT: 1. Third-degree heart block. 2. Essential hypertension. 3. History of aortic valve replacement. 4. History of chronic obstructive pulmonary disease. 5. Obesity. 6. History of colon and uterine cancer. 7. Hyperlipidemia. 8. History of hypertension. 9. History of sleep apnea syndrome. 10.History of hypothyroidism. PLAN: The patient is doing reasonably well. She is lying flat in bed. She is a bit uncomfortable because of the Chaidez catheter and a temporary transvenous pacemaker in her right groin. She is going for permanent pacemaker today. She is not having any respiratory difficulty at this time. Feeling much better. No chest pain. Will continue to follow. MMODL / IJN: [id number] /
[2020-02-23] MEDS ORDERED: IV FLUID CONTINUATION 700 ML IV ONE (13:50)
[2020-02-23] MEDS ORDERED: IOPAMIDOL-250 50ML BTL IV ONE (14:00)
--- NOTE | 2020-02-23 14:13 | P.PN ---
Progress Note - Text Progress Note Date: 02/23/20 Chief Complaint: Weak and tired History of presenting complaint: This is a very pleasant 84-year-old patient of Dr. Jerome Ohara. Chronic stable medical conditions include COPD, hypertension, hyperlipidemia, sleep apnea, hypothyroid. Does use CPAP. Patient for last 3-4 weeks has been feeling rather weak and tired. Some shortness of breath. Also has had some chronic lower extremity edema. Patient is transferred here from [facility] for low heart rate. Her son and also to go down there for COVID testing earlier today. When she started talking about her symptoms of the people today they sent her to the hospital. Heart rate then was anywhere between 20s to 40s. Patient's ticket taker ferryboat was contacted who sent the patient down to the ER. An external temporary pacemaker was initially put in. In the R Dr. Goyal placed a transvenous catheter. No chest pain. No fever no chills. Today-in the ICU. Seen this morning. Pending a permanent pacemaker. Heart distant in the 40s. Some shortness of breath. Review of systems: Was done for constitutional, cardiovascular, GI, pulmonary. relevant finding as above Active Medications Albuterol Sulfate (Ventolin Hfa Inhaler) 2 puff INHALATION RT-QID PRN PRN Reason: Shortness Of Breath Or Wheezing Ascorbic Acid (Vitamin C) 1,000 mg PO DAILY [facility] Last Admin: 02/23/20 08:56 Dose: 1,000 mg Documented by: Aspirin (Aspirin) 81 mg PO DAILY [facility] Last Admin: 02/23/20 09:49 Dose: Not Given Documented by: Atorvastatin Calcium (Lipitor) 20 mg PO [facility] Budesonide/Formoterol Fumarate (Symbicort 160-4.5 Mcg Inhaler) 2 puff INHALATION RT-BID [facility] Sodium Chloride (Saline 0.9%) 1,000 mls @ 20 mls/hr IV .Q24H [facility] Last Admin: 02/23/20 08:19 Dose: Not Given Documented by: Sodium Chloride (Saline 0.9%) 1,000 mls @ 20 mls/hr IV .Q24H [facility] Last Admin: 02/23/20 10:33 Dose: Not Given Documented by: Sodium Chloride (Saline 0.9%) 1,000 mls @ 50 mls/hr IV .Q20H [facility] Last Admin: 02/23/20 11:19 Dose: 50 mls/hr Documented by: Sodium Chloride (Saline 0.9%) 1,000 mls @ 50 mls/hr IV .Q20H [facility] Last Admin: 02/23/20 10:32 Dose: Not Given Documented by: Levothyroxine Sodium (Synthroid) 125 mcg PO DAILY@0630 [facility] Last Admin: 02/23/20 06:58 Dose: 125 mcg Documented by: Lisinopril (Zestril) 10 mg PO DAILY [facility] Last Admin: 02/23/20 08:56 Dose: 10 mg Documented by: Montelukast Sodium (Singulair) 10 mg PO DAILY [facility] Last Admin: 02/23/20 08:56 Dose: 10 mg Documented by: Naloxone HCl (Narcan) 0.2 mg IV Q2M PRN PRN Reason: Opioid Reversal Potassium Chloride (K-Dur 10) 10 meq PO DAILY [facility] Last Admin: 02/23/20 08:57 Dose: 10 meq Documented by: Torsemide (Demadex) 20 mg PO DAILY [facility] Last Admin: 02/23/20 08:57 Dose: 20 mg Documented by: Tramadol HCl (Ultram) 50 mg PO Q4H PRN PRN Reason: Pain Control Last Admin: 02/23/20 11:17 Dose: 50 mg Documented by: Physical examination: VITAL SIGNS: 97.6, 49, 24, 125/64, 92% on 4 L GENERAL: Laying in bed, slightly short of breath. EYES: Pupils equal. Conjunctiva normal. HEENT: External appearance of nose and ears normal, oral cavity grossly normal. NECK: Short thick neck unable to assess JVD, no mass palpable. HEART: First and second heart sounds are normal; nonpitting and mild edema. LUNGS: Respiratory rate increased; decreased breath sounds. ABDOMEN: Soft, nontender, liver spleen not palpable, no masses palpable. PSYCH: Alert and oriented x3; mood and affect normal MUSCULAR skeletal: Evidence of OA especially in the hands. Investigations: Potassium 4.5 bun 51 creatinine 1.46 Troponin I 0.125 EKG tracing showed complete AV dissociation with a heart rate of 30. 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 Currently has a transvenous catheter -Morbid obesity BMI 54.2 -Troponin leak due to hemodynamic mismatched no evidence of acute coronary syndrome. -COPD in an ex-smoker -Hyperlipidemia -Essential hypertension -Obstructive sleep apnea uses CPAP -Hypothyroid -Primary osteoarthritis -Suspect chronic kidney disease stage III from nephrosclerosis Plan: -Pending permanent pacemaker placement this afternoon. We will order renal ultrasound. Check a UA.. Obtain baseline labs from patient's PCP office.
[2020-02-23] MEDS ORDERED: LIDOCAINE 1% INJ 10MG/ML (20 ML MDV) SQ ONE (14:25)
[2020-02-23] MEDS: MIDAZOLAM 2 MG/2 ML VIAL IV ONE ×2 (14:25→15:10)
[2020-02-23] MEDS ORDERED: FUROSEMIDE 10 MG/ML 4 ML VIAL IV ONE (15:19)
[2020-02-23] MEDS ORDERED: MORPHINE SULFATE 4 MG/ML SYRINGE IV ONE (15:22)
[2020-02-23 15:35] LABS: Glucose,Whole Blood 98 mg/dL (75-99)
[2020-02-23] MEDS ORDERED: ACETAMINOPHEN TAB 325 MG TAB PO PRN (15:41)
[2020-02-23] MEDS ORDERED: IPRATROPIUM-ALBUTEROL 3 ML NEB INHALATION SCH (16:00)
[2020-02-23] MEDS: HEPARIN SODIUM,PORCINE 5,000 UNIT/ML 1 ML VIAL SQ SCH (16:31)
--- NOTE | 2020-02-23 16:54 | XR ---
EXAMINATION TYPE: XR chest 1V portable DATE OF EXAM: 02/23/2020 CLINICAL HISTORY: Difficulty breathing progress study. The placement check. TECHNIQUE: Single AP portable supine view of the chest is obtained. COMPARISON: Chest x-ray from earlier today FINDINGS: New dual-lead pacemaker with leads projecting over the levels of right atrium and right ve ntricle. Persistent cardiomegaly with atherosclerotic thoracic aorta metallic stent graft in the aort ic root. Chronic parenchymal changes with bibasilar opacities. No pneumothorax present. Incomplete vi sualization of left lung base. IMPRESSION: New Leads project over right atrium and right ventricle on frontal view. Persistent cardi omegaly and chronic parenchymal change with small bilateral pleural effusions and associated bibasila r acute infiltrate and/or atelectasis are redemonstrated.
--- NOTE | 2020-02-23 17:54 | US ---
EXAMINATION TYPE: US kidneys/renal and bladder DATE OF EXAM: 02/23/2020 COMPARISON: NONE CLINICAL HISTORY: Renal failure. Renal failure. EXAM MEASUREMENTS: Right Kidney: 11.9 x 5.7 x 4.9 cm Left Kidney: Limited. Difficult to clearly measure. Very limited exam due to large patient body habitus, gas, and patient's positioning. Right Kidney: Hypoechoic area seen anterior to right kidney: 3.2 x 3.2 x 2.1 cm. Hypoechoic area seen medially: 2.5 x 2.3 x 2.5 cm. Left Kidney: Very limited evaluation. Borders not well seen. Bladder: Not seen. Patient has catheter. Bilateral Jets seen: No IMPRESSION: Suboptimal study particularly left kidney. No gross hydronephrosis bilaterally. Cannot ex clude solid masses from the right kidney. Nonemergent renal protocol contrast enhanced CT or MRI foll ow-up is advised.
--- NOTE | 2020-02-23 17:57 | PCN ---
PROCEDURE NOTE DATE OF SERVICE: 02/23/2020. PROCEDURE: Dual-chamber permanent pacemaker from left infraclavicular approach. PERFORMED BY: Dr. Myron Calderon. Moderate conscious sedation time was 74 minutes. Patient was administered Versed. Oxygen saturation, hemodynamics and EKG were monitored closely. The patient was placed on a BiPAP. She has severe sleep apnea, and with this we were able to keep her well oxygenated. CLINICAL INFORMATION: Mrs. Gabriela Burns is an 84-year-old lady with a history of hypertension, hyperlipidemia, obesity, sleep apnea syndrome who also had a percutaneous aortic valve implanted in 2017. She does not have any significant obstructive CAD. She does have diastolic dysfunction. She was on beta blockers and was doing well. However, she came to [facility] yesterday with a heart rate in the 30s and had a high-grade AV block with underlying junctional escape rhythm almost. She underwent a temporary pacemaker performed by my partner, Dr. Goyal, yesterday. She was brought in for a permanent pacemaker today. Before the pacemaker I talked to the patient at length and I also spoke to her son Ravinder, explained to them the rationale, risks, benefits and options. They understood all details and wished to proceed. PROCEDURE NOTE: Under local anesthesia and strict aseptic precautions, under fluoroscopic guidance I obtained access into the left axillary vein with a micropuncture technique. Two access points were obtained, one below the other, about 2 inches medial and parallel to the left deltopectoral groove. A linear incision of about 3 inches was made parallel and medial to the left deltopectoral groove. Blunt dissection was carried to the fascia. A surgical pocket was made with blunt dissection and cautery. Under fluoroscopic guidance, a 6-Occitan introducer was advanced over the guidewire. The ventricular lead was positioned in the right ventricular apex with good threshold and sensitivities obtained. I also did a 10-volt pacing. I checked the lead in HEBREW and VIERA projections. Good sensitivities and thresholds were noted. The lead was then secured to the underlying muscle with an 0 silk suture. Subsequently, through the other access point over the guidewire, another 6-Occitan introducer was placed under fluoroscopic guidance. The atrial lead was positioned in the right atrial appendage. Good thresholds and sensitivities were obtained. The lead was visualized in VIERA and HEBREW projections. I also did a 10-volt pacing. The lead was then sutured to the underlying muscle. The leads were then connected to the pulse generator. The pocket was irrigated with antibiotic. At the time of the incision patient received IV piggyback Kefzol. The surgical pocket was clean and dry. The pulse generator was connected to the leads and the pulse generator was also sutured to the underlying muscle in the line of the incision. The wound was then closed in 2 layers with 2-0 and 3-0 Vicryl. Excellent hemostasis was secured. Patient tolerated the procedure well. Oxygen saturation was good. She was on BiPAP during the procedure. She will have a chest x-ray today and another two-view chest x-ray tomorrow. PULSE GENERATOR INFORMATION: Card Checker [employer], model Assurity MRI 2272, serial #[id number]. Atrial lead consumer recruiter [employer], model Tendril [id number], serial #[id number] placed in the right atrial appendage. Ventricular lead consumer recruiter [employer], model Tendril [id number], serial #[id number]. Atrial threshold was 1.0 mV at 0.5 millisecond. The P-waves were 1.6 mV, lead impedance was 440 ohms. Ventricular threshold was 0.5 V at 0.5 millisecond. R-waves were 11.8 mV. Lead impedance was 680 ohms. Pacemaker was set in a DDD mode with a low rate of 60, high rate of 120, AV paced delay of 275 milliseconds, sensed AV delay of 250 milliseconds. Under fluoroscopic guidance, a temporary pacemaker was taken out and the sheath was pulled. The patient tolerated procedure well without complication. Results were discussed with the patient as well as by phone with her son Ravinder. MMODL / IJN: [id number] /
[2020-02-23] MEDS: ALBUTEROL HFA INHALER INHALATION PRN (19:15)
[2020-02-23] MEDS: SYMBICORT 160-4.5 MCG INHALER INHALATION SCH (19:15)
[2020-02-23] MEDS ORDERED: BUDESONIDE 0.5 MG/2 ML NEBU INHALATION SCH (20:00)
[2020-02-23] MEDS: METOPROLOL TARTRATE 25 MG TAB PO SCH (21:11)
[2020-02-23] MEDS: ATORVASTATIN 20 MG TAB PO SCH (21:12)
[2020-02-23] MEDS: FUROSEMIDE 10 MG/ML 4 ML VIAL IV SCH (21:12)
[2020-02-24] MEDS: traMADol 50 MG TAB PO PRN ×5 (00:21→23:16)
[2020-02-24] MEDS: HEPARIN SODIUM,PORCINE 5,000 UNIT/ML 1 ML VIAL SQ SCH ×3 (00:21→15:25)
[2020-02-24 05:37] LABS: Magnesium 2.1 mg/dL (1.6-2.3); Potassium 4.4 mmol/L (3.5-5.1)
[2020-02-24] MEDS: LEVOTHYROXINE 125 MCG TAB PO SCH (06:23)
[2020-02-24] MEDS: SYMBICORT 160-4.5 MCG INHALER INHALATION SCH ×2 (07:55→20:19)
[2020-02-24] MEDS: ALBUTEROL HFA INHALER INHALATION PRN ×3 (07:55→20:19)
--- NOTE | 2020-02-24 08:14 | XR ---
EXAMINATION TYPE: XR chest 2V DATE OF EXAM: 02/24/2020 COMPARISON: Prior chest x-ray 02/23/2020 HISTORY: Lead placement check and abnormal chest x-ray TECHNIQUE: Frontal and lateral views of the chest are obtained. FINDINGS: There is a generator present in the left pectoral region, there are leads in the right atr ium and ventricle. The heart remains enlarged and there is rotation. Central vascularity appears prom inently. There is no pneumothorax. Prominent lung volumes are consistent with underlying COPD, there are overlying artifacts and leads. Interstitium appears mildly increased. There may be some improveme nt in aeration at the lung bases as compared to prior exam. IMPRESSION: There is some improvement in aeration.
--- NOTE | 2020-02-24 09:13 | P.PN ---
Subjective Progress Note Date: 02/24/20 Principal diagnosis: Bradycardia, third-degree heart block On 02/24/2020 patient seen in follow-up in the intensive care unit. Patient is status post permanent pacemaker insertion for third degree AV block, today is postoperative day 1, right groin TVP has been discontinued, this point patient is seen sitting up in the recliner, he states she is much more comfortable today, breathing easier, yesterday after the insertion of the pacemaker she did require BiPAP support, with pressures of 12/5, and FiO2 of 36%, currently on 4 L of oxygen satting 99%, lung sounds are clear, diminished at the bases, no rhonchi, no wheezes, 0.9 normal saline to be infused at 50 ML per hour. Patient has significant amount of lower extremity edema which she states is fairly normal for her and not significantly changed from the baseline. Patient is not paced rhythm on the monitor with a rate of 72 BPM. She is afebrile, blood pressures are stable. Today's chest x-ray still shows some central vascularity, no evidence of pneumothorax, and increased interstitium, but there is some impro vement in aeration at the lung bases compared to prior exam. Patient on IV diuretics at 40 mg every 12 hours, she is in -1.4 L fluid balance over the last 24 hours. Objective - Vital Signs Vital signs: Vital Signs Temp 98.5 F 02/24/20 04:00 Pulse 72 02/24/20 07:00 Resp 31 H 02/24/20 07:00 BP 142/83 02/24/20 07:00 Pulse Ox 98 02/24/20 07:00 Intake & Output 02/23/20 02/24/20 02/24/20 18:59 06:59 18:59 Intake Total 930 720 50 Output Total 1030 2085 75 Balance -100 -1365 -25 Weight 139.9 kg Intake: IV 560 600 50 0.9NS 400 50 0.9NS sheath 160 Sodium Chloride 0.9% 1, 550 000 ml @ 50 mls/hr IV . Q20H [facility] Rx#:[id number] ceFAZolin 2 gm In Sodium 50 Chloride 0.9% 50 ml @ 100 mls/hr IVPB ONCE ONE Rx# :[id number] Intake, IV Titration 50 Amount ceFAZolin 2 gm In Sodium 50 Chloride 0.9% 50 ml @ 100 mls/hr IVPB Q6HR [facility] Rx# :[id number] Oral 320 120 Output: Urine 1030 2085 75 Other: Voiding Method Indwelling Catheter Indwelling Catheter - Exam GENERAL EXAM: Alert, very pleasant, 84-year-old obese white female, on 4 L of oxygen, with pulse ox of 98%, sitting up in the recliner comfortable in no apparent distress. HEAD: Normocephalic/atraumatic. EYES: Normal reaction of pupils, equal size. Conjunctiva pink, sclera white. NOSE: Clear with pink turbinates. THROAT: No erythema or exudates. NECK: No masses, no JVD, no thyroid enlargement, no adenopathy. CHEST: No chest wall deformity. Symmetrical expansion. Left chest incisions clean dry and intact, covered with a dressing, soft LUNGS: Equal air entry with no crackles, wheeze, rhonchi or dullness. CVS: Regular rate and rhythm, normal S1 and S2, no gallops, no murmurs, no rubs ABDOMEN: Soft, nontender. No hepatosplenomegaly, normal bowel sounds, no g uarding or rigidity. EXTREMITIES: No clubbing, significant lower extremity edema, 2+, no cyanosis, 2+ pulses and upper and lower extremities. MUSCULOSKELETAL: Muscle strength and tone normal. SPINE: No scoliosis or deformity SKIN: No rashes CENTRAL NERVOUS SYSTEM: Alert and oriented -3. No focal deficits, tone is normal in all 4 extremities. PSYCHIATRIC: Alert and oriented -3. Appropriate affect. Intact judgment and insight. - Labs CBC & Chem 7: 02/24/20 04:43 Labs: Abnormal Lab Results - Last 24 Hours (Table) 02/24/20 Range/Units 04:43 Sodium 136 L (137-145) mmol/L BUN 43 H (7-17) mg/dL Creatinine 1.31 H (0.52-1.04) mg/dL Glucose 121 H (74-99) mg/dL Calcium 8.0 L (8.4-10.2) mg/dL Assessment and Plan Plan: Assessment: #1. Third-degree heart block, bradycardia, status post permanent pacemaker implantation, postoperative day 1 #2. Dyspnea, related to fluid overload, on IV diuretics, today's chest x-ray shows some improvement in aeration #3. Obstructive sleep apnea, on CPAP #4. Acute hypoxic respiratory failure related to fluid overload #5. COPD, not oxygen dependent at baseline #6. Hypertension #7. Hyperlipidemia #8. Hypothyroidism #9. Primary osteoarthritis #10. Morbid obesity Plan: Continue IV diuretics, today's chest x-ray shows some improvement in aeration, wean FiO2, may use home CPAP if patient is more comfortable with it. Patient only required brief support of BiPAP yesterday, she is feeling better today, vital signs are stable, no acute events overnight accurate I and O, daily labs, repeat chest x-ray in the morning, Stable to go out of ICU to [facility] care. I performed a history & physical examination of the patient and discussed their management with my nurse practitioner, Ileana Avendaño. I reviewed the nurse practitioner's note and agree with the documented findings and plan of care. Lung sounds are positive for diffuse wheezes throughout the lung santiago. The findings and the impression was discussed with the patient. I attest to the documentation by the nurse practitioner. Time with Patient: Less than 30
[2020-02-24] MEDS: ASCORBIC ACID 500 MG TAB PO SCH (09:45)
[2020-02-24] MEDS: ASPIRIN 81 MG PO SCH (09:45)
[2020-02-24] MEDS: FUROSEMIDE 10 MG/ML 4 ML VIAL IV SCH ×2 (09:45→21:02)
[2020-02-24] MEDS: POTASSIUM CHLORIDE ER 10 MEQ TAB.ER.PRT PO SCH (09:46)
[2020-02-24] MEDS: LISINOPRIL 10 MG TAB PO SCH (09:46)
[2020-02-24] MEDS: MONTELUKAST 10 MG TAB PO SCH (09:46)
[2020-02-24] MEDS: METOPROLOL TARTRATE 25 MG TAB PO SCH ×2 (09:46→21:02)
[2020-02-24] MEDS: SODIUM CHLORIDE 0.9% 1,000 ML IV SCH (09:46)
--- NOTE | 2020-02-24 14:23 | P.DS ---
Providers Date of admission: 02/22/20 13:38 Expected date of discharge: 02/24/20 Attending physician: Tye Pierson Consults: 02/22/20 13:16 Consult Physician Routine Consulting Provider: Anne Goyal Consult Reason/Comments: bradycardia, pacemaker? Do you want consulting provider notified?: Yes 02/22/20 13:38 Consult Physician Stat Consulting Provider: Pepe Bang Consult Reason/Comments: icu patient Do you want consulting provider notified?: Already Contacted 02/22/20 16:54 Consult Physician Routine Consulting Provider: Anne Goyal Consult Reason/Comments: possible pacemaker Do you want consulting provider notified?: Yes, Notify in am [facility] Course: Chief Complaint: Weak and tired History of presenting complaint: This is a very pleasant 84-year-old patient of Dr. Jerome Ohara. Chronic stable medical conditions include COPD, hypertension, hyperlipidemia, sleep apnea, hypothyroid. Does use CPAP. Patient for last 3-4 weeks has been feeling rather weak and tired. Some shortness of breath. Also has had some chronic lower extremity edema. Patient is transferred here from [facility] for low heart rate. Her son and also to go down there for COVID testing earlier today. When she started talking about her symptoms of the people today they sent her to the hospital. Heart rate then was anywhere between 20s to 40s. Patient's microstrategy architect developer was contacted who sent the patient down to the ER. An external temporary pacemaker was initially put in. In the R Dr. Goyal placed a transvenous catheter. No chest pain. No fever no chills. On February 22 a dual-chamber permanent pacemaker was placed by Dr. JANICE Calderon. Review of records from his PCPs office shows patient has chronic kidney disease. Today-. Stable. Tolerating a diet. Baseline minimal shortness of breath. Cleared by cardiology. Pacemaker interrogation was done. Discussion and discharge planning more than 35 minutes Consultation: Dr. Bang from [facility] Physical examination: VITAL SIGNS: 98.7, 64, 22, 126/90, 96% on nasal cannula GENERAL: Sitting up in a chair, awake. EYES: Pupils equal. Conjunctiva normal. HEENT: External appearance of nose and ears normal, oral cavity grossly normal. NECK: Short thick neck unable to assess JVD, no mass palpable. HEART: First and second heart sounds are normal; nonpitting and mild edema. LUNGS: Respiratory rate increased; decreased breath sounds. ABDOMEN: Soft, nontender, liver spleen not palpable, no masses palpable. PSYCH: Alert and oriented x3; mood and affect normal MUSCULAR skeletal: Evidence of OA especially in the hands. Investigations: Potassium 4.4 bun 43 creatinine 1.31 Previous testing Potassium 4.5 bun 51 creatinine 1.46 Troponin I 0.125 EKG tracing showed complete AV dissociation with a heart rate of 30. 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 Disposition: [facility] Patient Condition at Discharge: Stable Plan - Discharge Summary Discharge Rx Participant: Yes New Discharge Prescriptions: New Atorvastatin [Lipitor] 20 mg PO HS tab Budesonide-Formot 160-4.5 Mcg [Symbicort 160-4.5 Mcg Inhaler] 2 puff INHALATION RT-BID puff Acetaminophen Tab [Tylenol] 650 mg PO Q6HR PRN tab PRN Reason: Mild Pain Albuterol Inhaler [Ventolin Hfa Inhaler] 2 puff INHALATION RT-QID PRN puff PRN Reason: Shortness Of Breath Or Wheezing Ascorbic Acid [Vitamin C] 1,000 mg PO DAILY tab Continue Torsemide [Demadex] 20 mg PO DAILY Levothyroxine Sodium [Synthroid] 125 mcg PO DAILY Benazepril [Lotensin] 10 mg PO DAILY Aspirin EC [Ecotrin Low Dose] 81 mg PO DAILY Pyridoxine HCl (Vitamin B6) [Vitamin B-6] 100 mg PO DAILY Ipratropium-Albuterol Nebulize [Duoneb 0.5 mg-3 mg/3 ml Soln] 3 ml INHALATION RT-QID Calcium Citrate/Vitamin D3 [Calcitrate + Vit D Caplet] 3 tab PO DAILY Ascorbic Acid [Vitamin C] 1,000 mg PO DAILY Plymouth-3 Fatty Acids/Fish Oil [Fish Oil 1,000 mg Softgel] 1 cap PO DAILY Multivitamins, Thera [Multivitamin (formulary)] 1 tab PO DAILY Montelukast [Singulair] 10 mg PO DAILY Budesonide [Pulmicort] 0.5 mg INHALATION RT-BID Changed Potassium Chloride ER [K-Dur 10] 10 meq PO DAILY #0 Metoprolol Tartrate [Lopressor] 25 mg PO BID #0 traMADol HCL [Ultram] 50 mg PO Q6H PRN #12 tab PRN Reason: Pain Discontinued Simvastatin [Zocor] 40 mg PO HS No Action Metoprolol Tartrate [Lopressor] 50 mg PO DAILY Clopidogrel Bisulfate [Plavix] 75 mg PO DAILY Discharge Medication List Ascorbic Acid [Vitamin C] 1,000 mg PO DAILY 02/13/17 [History] Aspirin EC [Ecotrin Low Dose] 81 mg PO DAILY 02/13/17 [History] Benazepril [Lotensin] 10 mg PO DAILY 02/13/17 [History] Calcium Citrate/Vitamin D3 [Calcitrate + Vit D Caplet] 3 tab PO DAILY 02/13/17 [History] Ipratropium-Albuterol Nebulize [Duoneb 0.5 mg-3 mg/3 ml Soln] 3 ml INHALATION RT-QID 02/13/17 [History] Levothyroxine Sodium [Synthroid] 125 mcg PO DAILY 02/13/17 [History] Pyridoxine HCl (Vitamin B6) [Vitamin B-6] 100 mg PO DAILY 02/13/17 [History] Torsemide [Demadex] 20 mg PO DAILY 02/13/17 [History] Budesonide [Pulmicort] 0.5 mg INHALATION RT-BID 02/22/20 [History] Clopidogrel Bisulfate [Plavix] 75 mg PO DAILY 02/22/20 [History] Metoprolol Tartrate [Lopressor] 50 mg PO DAILY 02/22/20 [History] Montelukast [Singulair] 10 mg PO DAILY 02/22/20 [History] Multivitamins, Thera [Multivitamin (formulary)] 1 tab PO DAILY 02/22/20 [History] [place]-3 Fatty Acids/Fish Oil [Fish Oil 1,000 mg Softgel] 1 cap PO DAILY 02/22/20 [History] Acetaminophen Tab [Tylenol] 650 mg PO Q6HR PRN tab 02/24/20 [Rx] Albuterol Inhaler [Ventolin Hfa Inhaler] 2 puff INHALATION RT-QID PRN puff 02/24/20 [Rx] Ascorbic Acid [Vitamin C] 1,000 mg PO DAILY tab 02/24/20 [Rx] Atorvastatin [Lipitor] 20 mg PO HS tab 02/24/20 [Rx] Budesonide-Formot 160-4.5 Mcg [Symbicort 160-4.5 Mcg Inhaler] 2 puff INHALATION RT-BID puff 02/24/20 [Rx] Metoprolol Tartrate [Lopressor] 25 mg PO BID #0 02/24/20 [Rx] Potassium Chloride ER [K-Dur 10] 10 meq PO DAILY #0 02/24/20 [Rx] traMADol HCL [Ultram] 50 mg PO Q6H PRN #12 tab 02/24/20 [Rx] Follow up Appointment(s)/Referral(s): Cardiology,dr [Other] - 1 Week Jerome Monroe MD [Primary Care Provider] - 1-2 days [facility], [NON-STAFF] - 1-2 Days
--- NOTE | 2020-02-24 15:06 | P.PN ---
Subjective Progress Note Date: 02/24/20 This is a 84-year-old female was admitted with high degree AV block with AV dissociation. Had a temporary pacemaker insertion. Still having high degree AV block. Patient is going to have permanent pacemaker implantation by Dr. JANICE Calderon this afternoon. Patient is diuresing well. Denies any chest pain. Mildly short of breath. Having difficulty laying flat. 02/24/2020: This patient is admitted with complete AV dissociation. Had a permanent pacemaker. Yesterday. Functioning normally. Patient is feeling much better. Patient and her percent of the time. The pacemaker site looks good with mild staining of the dressing. No hematoma. Overall patient seemed to be good. If his pacemaker checkup is normal, from Cardec standpoint patient could be discharged home. Follow-up with Dr. JANICE Calderon Objective - Vital Signs Vital signs: Vital Signs Temp 98.7 F 02/24/20 12:00 Pulse 75 02/24/20 14:00 Resp 8 L 02/24/20 14:00 BP 105/92 02/24/20 14:00 Pulse Ox 92 L 02/24/20 14:00 Intake & Output 02/23/20 02/24/20 02/24/20 18:59 06:59 18:59 Intake Total 801 593 4310 Output Total 1030 2085 780 Balance -100 -1365 340 Weight 139.9 kg Intake: IV 560 600 70 0.9NS 400 50 0.9NS sheath 160 Sodium Chloride 0.9% 1, 550 20 000 ml @ 50 mls/hr IV . Q20H [facility] Rx#:[id number] ceFAZolin 2 gm In Sodium 50 Chloride 0.9% 50 ml @ 100 mls/hr IVPB ONCE ONE Rx# :[id number] Intake, IV Titration 50 50 Amount ceFAZolin 2 gm In Sodium 50 50 Chloride 0.9% 50 ml @ 100 mls/hr IVPB Q6HR [facility] Rx# :[id number] Oral 592 810 2145 Output: Urine 1030 2085 780 Other: Voiding Method Indwelling Catheter Indwelling Catheter Indwelling Catheter - Exam GENERAL EXAM: Patient is alert and oriented and having difficulty laying flat HEENT: Normocephalic. Normal reaction of pupils, equal size, normal range of extraocular motion. No erythema or exudates in the throat. NECK: No masses, no nuchal rigidity. CHEST: No chest wall deformity. LUNGS: Equal air entry with no crackles or wheeze. HEART: S1 and S2 normal with no audible mumurs or gallops. Regular rhythm, femorals equal on both sides.. ABDOMEN: No hepatosplenomegaly, normal bowel sounds, no guarding or rigidity. SKIN: No rashes CENTRAL NERVOUS SYSTEM: No focal deficits. EXTREMITIES: No cyanosis, clubbing or edema. - Labs CBC & Chem 7: 02/24/20 04:43 Labs: Abnormal Lab Results - Last 24 Hours (Table) 02/24/20 Range/Units 04:43 Sodium 136 L (137-145) mmol/L BUN 43 H (7-17) mg/dL Creatinine 1.31 H (0.52-1.04) mg/dL Glucose 121 H (74-99) mg/dL Calcium 8.0 L (8.4-10.2) mg/dL Assessment and Plan (1) Atrioventricular dissociation, complete Current Visit: Yes Status: Acute Code(s): I45.89 - OTHER SPECIFIED CONDUCTION DISORDERS SNOMED Code(s): 01869949 (2) Essential hypertension Current Visit: Yes Status: Acute Code(s): I10 - ESSENTIAL (PRIMARY) HYPERTENSION SNOMED Code(s): 11864644 (3) History of aortic valve replacement Current Visit: Yes Status: Acute Code(s): Z95.2 - PRESENCE OF PROSTHETIC HEART VALVE SNOMED Code(s): 7475128366600 (4) COPD (chronic obstructive pulmonary disease) Current Visit: Yes Status: Acute Code(s): J44.9 - CHRONIC OBSTRUCTIVE PULMONARY DISEASE, UNSPECIFIED SNOMED Code(s): 50189140 Plan: Status post permanent pacemaker implantation. Clinically stable. Site looks soft without any hematoma. Mild staining of the dressing. Follow-up with Dr. JANICE Calderon. Standard postpacemaker instructions
[2020-02-24] MEDS: ATORVASTATIN 20 MG TAB PO SCH (21:02)
--- NOTE | 2020-02-24 22:21 | P.PN ---
Progress Note - Text Progress Note Date: 02/24/20 Chief Complaint: Weak and tired History of presenting complaint: This is a very pleasant 84-year-old patient of Dr. Jerome Ohara. Chronic stable medical conditions include COPD, hypertension, hyperlipidemia, sleep apnea, hypothyroid. Does use CPAP. Patient for last 3-4 weeks has been feeling rather weak and tired. Some shortness of breath. Also has had some chronic lower extremity edema. Patient is transferred here from [facility] for low heart rate. Her son and also to go down there for COVID testing earlier today. When she started talking about her symptoms of the people today they sent her to the hospital. Heart rate then was anywhere between 20s to 40s. Patient's tong hooker was contacted who sent the patient down to the ER. An external temporary pacemaker was initially put in. In the R Dr. Goyal placed a transvenous catheter. No chest pain. No fever no chills. On February 22 a dual-chamber permanent pacemaker was placed by Dr. JANICE Calderon. Review of records from his PCPs office shows patient has chronic kidney disease. Today-. Stable. Tolerating a diet. Baseline minimal shortness of breath. Cleared by cardiology. Pacemaker interrogation was done. Review of systems: Was done for constitutional, cardiovascular, GI, pulmonary. relevant finding as above Consultation: Dr. Bang [facility] Active Medications Acetaminophen (Tylenol Tab) 650 mg PO Q6HR PRN PRN Reason: Mild Pain Albuterol Sulfate (Ventolin Hfa Inhaler) 2 puff INHALATION RT-QID PRN PRN Reason: Shortness Of Breath Or Wheezing Last Admin: 02/24/20 20:19 Dose: 2 puff Documented by: Ascorbic Acid (Vitamin C) 1,000 mg PO DAILY [facility] Last Admin: 02/24/20 09:45 Dose: 1,000 mg Documented by: Aspirin (Aspirin) 81 mg PO DAILY [facility] Last Admin: 02/24/20 09:45 Dose: 81 mg Documented by: Atorvastatin Calcium (Lipitor) 20 mg PO HS [facility] Last Admin: 02/24/20 21:02 Dose: 20 mg Documented by: Budesonide/Formoterol Fumarate (Symbicort 160-4.5 Mcg Inhaler) 2 puff INHALATION RT-BID [facility] Last Admin: 02/24/20 20:19 Dose: 2 puff Documented by: Furosemide (Lasix) 40 mg IV Q12HR [facility] Last Admin: 02/24/20 21:02 Dose: 40 mg Documented by: Heparin Sodium (Porcine) (Heparin) 5,000 unit SQ Q8HR [facility] Last Admin: 02/24/20 15:25 Dose: 5,000 unit Documented by: Levothyroxine Sodium (Synthroid) 125 mcg PO DAILY@0630 [facility] Last Admin: 02/24/20 06:23 Dose: 125 mcg Documented by: Lisinopril (Zestril) 10 mg PO DAILY [facility] Last Admin: 02/24/20 09:46 Dose: 10 mg Documented by: Metoprolol Tartrate (Lopressor) 25 mg PO BID [facility] Last Admin: 02/24/20 21:02 Dose: 25 mg Documented by: Montelukast Sodium (Singulair) 10 mg PO DAILY [facility] Last Admin: 02/24/20 09:46 Dose: 10 mg Documented by: Naloxone HCl (Narcan) 0.2 mg IV Q2M PRN PRN Reason: Opioid Reversal Potassium Chloride (K-Dur 10) 10 meq PO DAILY [facility] Last Admin: 02/24/20 09:46 Dose: 10 meq Documented by: Sodium Chloride (Saline Flush) 10 ml IV Q12HR [facility] Last Admin: 02/24/20 21:03 Dose: 10 ml Documented by: Tramadol HCl (Ultram) 50 mg PO Q4H PRN PRN Reason: Pain Control Last Admin: 02/24/20 15:32 Dose: 50 mg Documented by: Physical examination: VITAL SIGNS: 97.9, 76, 18, 139/66, 90% on 2 L GENERAL: Sitting up in a chair, awake. EYES: Pupils equal. Conjunctiva normal. HEENT: External appearance of nose and ears normal, oral cavity grossly normal. NECK: Short thick neck unable to assess JVD, no mass palpable. HEART: First and second heart sounds are normal; nonpitting and mild edema. LUNGS: Respiratory rate increased; decreased breath sounds. ABDOMEN: Soft, nontender, liver spleen not palpable, no masses palpable. PSYCH: Alert and oriented x3; mood and affect normal MUSCULAR skeletal: Evidence of OA especially in the hands. Investigations: Potassium 4.4 bun 43 creatinine 1.31 Previous testing Potassium 4.5 bun 51 creatinine 1.46 Troponin I 0.125 EKG tracing showed complete AV dissociation with a heart rate of 30. 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 Patient is ready for discharge. Per automatic data processing planner discharge no postponed till tomorrow. Care was discussed with the patient.
[2020-02-25] MEDS: HEPARIN SODIUM,PORCINE 5,000 UNIT/ML 1 ML VIAL SQ SCH ×2 (00:25→09:08)
[2020-02-25] MEDS: LEVOTHYROXINE 125 MCG TAB PO SCH (06:24)
--- NOTE | 2020-02-25 07:28 | XR ---
EXAMINATION TYPE: XR chest 1V portable DATE OF EXAM: 02/25/2020 HISTORY: Shortness of breath. COMPARISON: 02/24/2020 TECHNIQUE: Single view of the chest is submitted. FINDINGS: Demonstrated are scattered senescent parenchymal change. Patchy perihilar and basilar infiltrates not ed. Interval progression noted at the right lung base. The heart is stable. Hilar and mediastinal structures are within normal limits. Degenerative changes are seen of the dorsal spine. IMPRESSION: 1. Patchy perihilar and basilar infiltrates noted. Interval progression noted at the right lung base .
[2020-02-25] MEDS: ALBUTEROL HFA INHALER INHALATION PRN (07:32)
[2020-02-25] MEDS: SYMBICORT 160-4.5 MCG INHALER INHALATION SCH (07:32)
[2020-02-25 07:40] LABS: Calcium 7.9 mg/dL (8.4-10.2); Potassium 4.2 mmol/L (3.5-5.1)
[2020-02-25 08:17] VITALS: BP 134/61; PULSE 87; RESP 18; TEMP 98
[2020-02-25] MEDS: FUROSEMIDE 10 MG/ML 4 ML VIAL IV SCH (09:07)
[2020-02-25] MEDS: POTASSIUM CHLORIDE ER 10 MEQ TAB.ER.PRT PO SCH (09:11)
[2020-02-25] MEDS: METOPROLOL TARTRATE 25 MG TAB PO SCH (09:11)
[2020-02-25] MEDS: LISINOPRIL 10 MG TAB PO SCH (09:11)
[2020-02-25] MEDS: MONTELUKAST 10 MG TAB PO SCH (09:11)
[2020-02-25] MEDS: ASPIRIN 81 MG PO SCH (09:12)
[2020-02-25] MEDS: ASCORBIC ACID 500 MG TAB PO SCH (09:12)
--- NOTE | 2020-02-25 12:05 | PN ---
PROGRESS NOTE HISTORY OF PRESENT ILLNESS: This is an 84-year-old female with a history of a third-degree heart block. She received a permanent pacemaker 2 days ago. She is postop day #2. She is currently on 3 L nasal cannula. No IV fluids. She is feeling much improved. She denies any complaints at this time including pain, difficulty breathing, coughing, wheezing, or phlegm production. She also denies any chest pain or pressure. PHYSICAL EXAMINATION: VITAL SIGNS: Current vital signs include temperature 98, heart rate 87, respiratory rate 18, blood pressure 134/61, mean 85, 3 L saturation 94%. GENERAL: Appears in no acute distress. HEENT: Examination is grossly unremarkable. NECK: Supple with full range of motion. No adenopathy. Neck veins are flat. CARDIOVASCULAR: Examination reveals regular rhythm and rate. S1, S2 normal. No S3, S4, or murmur. LUNGS: Clear breath sounds, equal. No wheezes or rhonchi. ABDOMEN: Soft. Bowel sounds are heard. EXTREMITIES: Intact. No cyanosis, clubbing, or edema. LABS: Reviewed. Sodium 138, potassium 4.2, chloride 102, CO2 29, anion gap is 7. BUN and creatinine were 39 and 1.17. The rest of the labs look okay. X-RAY: No recent x-rays to report. ASSESSMENT: 1. Postop day #2, status post permanent pacemaker insertion for third-degree heart block and bradycardia. 2. Mild shortness of breath, related to fluid overload, status post IV diuretics and BiPAP therapy. 3. Sleep apnea syndrome, maintained on home CPAP. 4. History of acute hypoxemic respiratory failure, resolved, secondary to fluid overload. 5. Chronic obstructive pulmonary disease, not oxygen dependent. 6. Essential hypertension. 7. Hyperlipidemia. 8. Hypothyroidism. 9. Osteoarthritis. 10.Morbid obesity. PLAN: Currently, the patient is doing well. She has been weaned down to 3 L. She is feeling much improved. Her pacemaker seems to be working well. Chest x-rays reviewed. Labs are reviewed. No additional recommendations are made. We will continue to follow. MMODL / IJN: [id number] /
== END 2020-02-25 13:39 | DRG 242 ==
LOC: EC 12:47 → 2SICU 13:38
PROVIDERS: ADMIT Hospitalist; ATTEND Hospitalist
PROC: 5A1223Z Performance of Cardiac Pacing, Continuous (ICD-10-PCS; 2020-02-22)
PROC: 5A09457 Assistance with Respiratory Ventilation, 24-96 Consecutive Hours, Continuous Positive Airway Pressure (ICD-10-PCS; 2020-02-23)
PROC: 0JH606Z Insertion of Pacemaker, Dual Chamber into Chest Subcutaneous Tissue and Fascia, Open Approach (ICD-10-PCS; principal; 2020-02-23 13:50)
PROC: 02H63JZ Insertion of Pacemaker Lead into Right Atrium, Percutaneous Approach (ICD-10-PCS; principal; 2020-02-23 13:50)
PROC: 02HK3JZ Insertion of Pacemaker Lead into Right Ventricle, Percutaneous Approach (ICD-10-PCS; principal; 2020-02-23 13:50)
DX: I44.2 Atrioventricular block, complete (principal); J96.01 Acute respiratory failure with hypoxia; Z68.43 Body mass index [BMI] 50.0-59.9, adult; E03.9 Hypothyroidism, unspecified; E66.01 Morbid (severe) obesity due to excess calories; E78.5 Hyperlipidemia, unspecified; E87.70 Fluid overload, unspecified; G47.33 Obstructive sleep apnea (adult) (pediatric); Z99.89 Dependence on other enabling machines and devices; F41.9 Anxiety disorder, unspecified; I12.9 Hypertensive chronic kidney disease with stage 1 through stage 4 chronic kidney disease, or unspecified chronic kidney disease; I35.0 Nonrheumatic aortic (valve) stenosis; I45.89 Other specified conduction disorders; J44.9 Chronic obstructive pulmonary disease, unspecified; N18.3 Chronic kidney disease, stage 3 (moderate); R79.89 Other specified abnormal findings of blood chemistry; Z79.02 Long term (current) use of antithrombotics/antiplatelets; M19.91 Primary osteoarthritis, unspecified site; Z79.82 Long term (current) use of aspirin; Z79.890 Hormone replacement therapy; Z11.59 Encounter for screening for other viral diseases; Z79.899 Other long term (current) drug therapy; Z85.42 Personal history of malignant neoplasm of other parts of uterus; Z87.891 Personal history of nicotine dependence; Z90.710 Acquired absence of both cervix and uterus; Z95.2 Presence of prosthetic heart valve; Z96.611 Presence of right artificial shoulder joint; Z96.612 Presence of left artificial shoulder joint; Z98.42 Cataract extraction status, left eye; Z98.41 Cataract extraction status, right eye; Z90.49 Acquired absence of other specified parts of digestive tract; Z87.11 Personal history of peptic ulcer disease
CPT/HCPCS: 33208; 33210; 36415; 71045; 71046; 76770; 80048; 80053; 83735; 84484; 85610; 85730; 93005; 94640; 94660; 99285

== ENCOUNTER 2021-06-19 12:11 | Inpatient (IN) | payer MEDICARE, BC ==
--- NOTE | 2021-06-19 12:44 | ED ---
Recheck HPI - General Chief Complaint: Recheck/Abnormal Lab/Rx Stated Complaint: Abn Labs Time Seen by Provider: 06/19/21 12:23 Source: patient, EMS, RN notes reviewed, old records reviewed Mode of arrival: EMS Limitations: no limitations - History of Present Illness Initial Comments: Patient is an 86-year-old female, with history of COPD, hypertension, sleep apnea, presenting to the emergency Department from [facility] via EMS for abnormal labs. Patient had labs drawn yesterday which showed a creatinine of 3.1, she has no history of kidney disease. She does take a diuretic, states she has lost about 40-50 pounds over the past 3 weeks. She has been at [facility] for the past couple weeks secondary to weakness, they were talking about discharging her soon. She denies any specific complaints at this time, no chest pain or shortness of breath, no fevers or chills, no abdominal pain, no nausea or vomiting. She states her appetite has been a little lower over the past 2 days as she still been drinking fluids. She has no specific complaints at this time. Upon arrival to the ER, her vitals are normal. - Related Data Home Medications Medication Instructions Recorded Confirmed Aspirin EC [Ecotrin Low Dose] 81 mg PO DAILY 02/13/17 06/19/21 Calcium Citrate/Vitamin D3 3 tab PO DAILY 02/13/17 06/19/21 [Calcitrate + Vit D Caplet] Ipratropium-Albuterol Nebulize 3 ml INHALATION RT-Q4H 02/13/17 06/19/21 [Duoneb 0.5 mg-3 mg/3 ml Soln] Levothyroxine Sodium [Synthroid] 125 mcg PO DAILY@0600 02/13/17 06/19/21 Pyridoxine HCl (Vitamin B6) 100 mg PO DAILY 02/13/17 06/19/21 [Vitamin B-6] Budesonide [Pulmicort] 0.5 mg INHALATION RT-BID 02/22/20 06/19/21 Metoprolol Tartrate [Lopressor] 50 mg PO DAILY 02/22/20 06/19/21 Montelukast [Singulair] 10 mg PO HS 02/22/20 06/19/21 Multivitamins, Thera [Multivitamin 1 tab PO DAILY 02/22/20 06/19/21 (formulary)] [place]-3 Fatty Acids/Fish Oil [Fish 1 cap PO DAILY 02/22/20 06/19/21 Oil 1,000 mg Softgel] ALPRAZolam [Xanax] 0.25 mg PO Q8H PRN 06/19/21 06/19/21 Apixaban [Eliquis] 2.5 mg PO BID 06/19/21 06/19/21 Famotidine [Pepcid] 10 mg PO BID 06/19/21 06/19/21 Furosemide [Lasix] 40 mg PO TID@0600,0900,1400 06/19/21 06/19/21 Ipratropium-Albuterol Nebulize 3 ml INHALATION RT-Q4H PRN 06/19/21 06/19/21 [Duoneb 0.5 mg-3 mg/3 ml Soln] Methyl Salicylate/Menth/Camph 1 patch TOPICAL DAILY 06/19/21 06/19/21 [Salonpas 3.1%-6.0%-10.0% Patch] Polyethylene Glycol 3350 [Miralax] 17 gm PO DAILY PRN 06/19/21 06/19/21 Potassium Chloride ER [K-Dur 10] 10 meq PO BID 06/19/21 06/19/21 lisinopriL [Zestril] 5 mg PO DAILY 06/19/21 06/19/21 metOLazone [Zaroxolyn] 5 mg PO DAILY@0600 06/19/21 06/19/21 traMADol HCL [Ultram] 50 mg PO Q4H PRN 06/19/21 06/19/21 Previous Rx's Medication Instructions Recorded Ascorbic Acid [Vitamin C] 1,000 mg PO DAILY tab 02/24/20 Atorvastatin [Lipitor] 20 mg PO HS tab 02/24/20 Allergies Allergy/AdvReac Type Severity Reaction Status Date / Time No Known Allergies Allergy Verified 06/19/21 13:04 Review of Systems ROS Statement: Those systems with pertinent positive or pertinent negative responses have been documented in the HPI. ROS Other: All systems not noted in ROS Statement are negative. Past Medical History Past Medical History: Cancer, COPD, Hyperlipidemia, Hypertension, Sleep Apnea/CPAP/BIPAP, Thyroid Disorder Additional Past Medical History / Comment(s): HX COLON AND UTERINE CANCER. USES CPAP-INSTRUCTED TO BRING AND LEAVE IN CAR IN CASE OF ADMISSION. PAST HX BLEEDING ULCER History of Any Multi-Drug Resistant Organisms: None Reported Past Surgical History: Appendectomy, Bowel Resection, Cholecystectomy, Hernia Repair, Hysterectomy, Joint Replacement, Orthopedic Surgery, Tonsillectomy Additional Past Surgical History / Comment(s): COLONOSCOPY AND EGD. LT SHOULDER REPLACEMENT. BILAT TKA. HERNIA REPAIR X 4. OVARIAN CYSTECTOMY X 2. CTR-BILAT Past Anesthesia/Blood Transfusion Reactions: No Reported Reaction Past Psychological History: Anxiety Smoking Status: Former smoker Past Alcohol Use History: None Reported Past Drug Use History: None Reported - Past Family History Mother Family Medical History: No Reported History General Exam - General Exam Comments Initial Comments: GENERAL: Patient is well-developed and well-nourished. Patient is nontoxic and in no acute distress. HEAD: Atraumatic, normocephalic. EYES: Pupils equal round and reactive to light, extraocular movements intact, sclera anicteric, conjunctiva are normal. Eyelids were unremarkable. ENT: Nares patent, oropharynx clear without exudates. Moist mucous membranes. NECK: Normal range of motion, supple without lymphadenopathy or JVD. LUNGS: Unlabored respirations. Breath sounds clear to auscultation bilaterally and equal. No wheezes rales or rhonchi. HEART: Regular rate and rhythm without murmurs, rubs or gallops. ABDOMEN: Soft, nontender, normoactive bowel sounds. No guarding, no rebound. No masses appreciated. MUSCULOSKELETAL: Normal extremities with adequate strength and normal range of motion. No clubbing or cyanosis. Patient has a mild-mod bilateral lower leg edema, this is much improved from previous according to the patient. Neurovascular intact. NEUROLOGICAL: Patient is alert and oriented x 3. Motor and sensory are also intact. Cranial nerves II through XII grossly intact. Symmetrical smile. Normal speech. PSYCH: Normal mood, normal affect. SKIN: Warm, Dry, normal turgor, no rashes or lesions noted. Limitations: no limitations Course Vital Signs 06/19/21 06/19/21 12:15 14:10 Temperature 97.3 F L Pulse Rate 65 61 Respiratory 20 20 Rate Blood Pressure 118/63 110/58 O2 Sat by Pulse 96 96 Oximetry Medical Decision Making - Medical Decision Making Patient is an 86-year-old female here from [facility] via EMS for abnormal labs. Creatinine that was drawn yesterday was at 3.1, she has no history of kidney disease. Labs today show creatinine at 3.3 with BUN 101. Magnesium is normal. Urine shows no evidence of infection. Patient was started on fluids and will be admitted for acute kidney failure. Patient is agreeable to this. Patient was accepted by Dr. Pierson. Case discussed with Dr. Liriano. - Lab Data Result diagrams: 06/19/21 12:36 06/19/21 12:36 Lab Results 06/19/21 06/19/21 06/19/21 Range/Units 12:36 12:36 12:36 WBC 7.8 (3.8-10.6) k/uL RBC 4.30 (3.80-5.40) m/uL Hgb 13.9 (11.4-16.0) gm/dL Hct 40.8 (34.0-46.0) % MCV 94.8 (80.0-100.0) fL MCH 32.4 (25.0-35.0) pg MCHC 34.2 (31.0-37.0) g/dL RDW 13.9 (11.5-15.5) % Plt Count 194 (150-450) k/uL MPV 7.2 Neutrophils % 67 % Lymphocytes % 17 % Monocytes % 8 % Eosinophils % 5 % Basophils % 1 % Neutrophils # 5.2 (1.3-7.7) k/uL Lymphocytes # 1.3 (1.0-4.8) k/uL Monocytes # 0.6 (0-1.0) k/uL Eosinophils # 0.4 (0-0.7) k/uL Basophils # 0.1 (0-0.2) k/uL PT 10.6 (9.0-12.0) sec INR 1.0 (<1.2) APTT 24.5 (22.0-30.0) sec Sodium 131 L (137-145) mmol/L Potassium 4.0 (3.5-5.1) mmol/L Chloride 87 L (98-107) mmol/L Carbon Dioxide 35 H (22-30) mmol/L Anion Gap 9 mmol/L BUN 101 H* (7-17) mg/dL Creatinine 3.30 H (0.52-1.04) mg/dL Est GFR (CKD-EPI)AfAm 14 (>60 ml/min/1.73 sqM) Est GFR (CKD-EPI)NonAf 12 (>60 ml/min/1.73 sqM) Glucose 95 (74-99) mg/dL Calcium 10.8 H (8.4-10.2) mg/dL Phosphorus 5.4 H (2.5-4.5) mg/dL Magnesium 2.0 (1.6-2.3) mg/dL Total Bilirubin 0.5 (0.2-1.3) mg/dL AST 38 H (14-36) U/L ALT 22 (4-34) U/L Alkaline Phosphatase 67 (38-126) U/L Total Protein 7.0 (6.3-8.2) g/dL Albumin 3.9 (3.5-5.0) g/dL Disposition Clinical Impression: BRENDA (acute kidney injury), Renal failure Disposition: ADMITTED IP TO THIS [facility] Condition: Stable Decision Date: 06/19/21 Decision Time: 14:13
[2021-06-19 12:48] LABS: Basophils # (A) 0.1 k/uL (0-0.2); Basophils % (A) 1 %; Eosinophils # (A) 0.4 k/uL (0-0.7); Eosinophils % (A) 5 %; HCT 40.8 % (34.0-46.0); HGB 13.9 gm/dL (11.4-16.0); Lymphocytes # (A) 1.3 k/uL (1.0-4.8); Lymphocytes % (A) 17 %; MCH 32.4 pg (25.0-35.0); MCHC 34.2 g/dL (31.0-37.0); MCV 94.8 fL (80.0-100.0); Mean Platelet Volume 7.2; Monocytes # (A) 0.6 k/uL (0-1.0); Monocytes % (A) 8 %; Neutrophils # (A) 5.2 k/uL (1.3-7.7); Neutrophils % (A) 67 %; Platelet Count 194 k/uL (150-450); RDW 13.9 % (11.5-15.5); WBC 7.8 k/uL (3.8-10.6)
[2021-06-19 13:00] LABS: Albumin 3.9 g/dL (3.5-5.0); Calcium 10.8 mg/dL (8.4-10.2); Phosphorus 5.4 mg/dL (2.5-4.5); Total Bilirubin 0.5 mg/dL (0.2-1.3)
[2021-06-19 13:05] LABS: Partial Thromboplastin Time 24.5 sec (22.0-30.0); Prothrombin Time 10.6 sec (9.0-12.0)
[2021-06-19] MEDS ORDERED: SODIUM CHLORIDE 0.9% 500 ML 500 ML IV STA (13:21)
[2021-06-19] MEDS ORDERED: SODIUM CHLORIDE 0.9% 1,000 ML IV STA (13:21)
[2021-06-19] MEDS ORDERED: polyethylene glycoL 3350 17 GM POWD.PACK PO PRN (13:33)
[2021-06-19] MEDS ORDERED: IPRATROPIUM-ALBUTEROL 3 ML NEB INHALATION PRN (13:33)
[2021-06-19] MEDS ORDERED: ONDANSETRON 4 MG/2 ML VIAL IVP PRN (13:35)
[2021-06-19] MEDS ORDERED: MAG HYDROX/AL HYDROX/SIMETH 30 ML CUP PO PRN (13:35)
[2021-06-19] MEDS ORDERED: ACETAMINOPHEN TAB 325 MG TAB PO PRN (13:35)
[2021-06-19] MEDS ORDERED: NALOXONE 0.4 MG/ML 1 ML VIAL IV PRN (13:35)
[2021-06-19] MEDS ORDERED: MELATONIN 3 MG TABLET PO PRN (13:35)
[2021-06-19] MEDS ORDERED: LACTULOSE 20 GM/30 ML CUP PO PRN (13:35)
[2021-06-19] MEDS ORDERED: CALCIUM CARBONATE 500 MG CHEWABLE PO PRN (13:35)
[2021-06-19 14:35] LABS: Appearance,Urine Clear (Clear); Bilirubin,Urine Negative (Negative); Blood,Urine Negative (Negative); Color,Urine Light Yellow; Glucose,Urine (UA) Negative (Negative); Ketones,Urine Negative (Negative); Leukocyte Esterase,Urine Negative (Negative); Nitrite,Urine Negative (Negative); PH, Urine 5.5 (5.0-8.0); Protein,Urine Negative (Negative); Specific Gravity,Urine 1.008 (1.001-1.035); Urobilinogen,Urine <2.0 mg/dL (<2.0)
--- NOTE | 2021-06-19 15:32 | P.HPIM ---
History of Present Illness H&P Date: 06/19/21 Chief Complaint: Abnormal kidney function History of presenting complaint: This is a very pleasant 86-year-old patient of Dr. Jerome Monroe. Chronic stable medical conditions include COPD, hypertension, hyperlipidemia, sleep apnea, hypothyroid. Permanent pacemaker, CKD Does use CPAP. Patient has been at [facility] in the [facility] for inpatient rehab. For about 3 weeks. Prior to that she was at [facility] with fluid overload and significant amount of fluid was removed. She was sent in today because of worsening renal function. Patient does make urine. Does use a walker to get about. Appetite is fair. No burning in the urine. No fever no chills. Patient started to lose weight and is eating less. Decreased fluid intake. Review of systems: GEN.: Tired EYES: None HEENT: None NECK: None RESPIRATORY: None CARDIOVASCULAR: None GASTROINTESTINAL: None GENITOURINARY: None MUSCULOSKELETAL: Joint pains LYMPHATICS: None HEMATOLOGICAL: None PSYCHIATRY: None NEUROLOGICAL: Uses a walker Past medical history to include: COPD, hypertension, hyperlipidemia, obstructive sleep apnea uses CPAP, hypothyroid, permanent pacemaker for heart block, CK D, bleeding peptic ulcer disease Social history: Patient stopped smoking in 1974. Currently at [facility] in the [facility]. Family history: Reviewed, noncontributory to presentation Physical examination: VITAL SIGNS: 98, 87, 18, 134/61, 96% on room air GENERAL: BMI BMI 51.5, sitting on bed, awake, tired EYES: Pupils equal. Conjunctiva normal. HEENT: External appearance of nose and ears normal, oral cavity grossly normal. NECK: Short thick neck unable to assess JVD, no mass palpable. HEART: First and second heart sounds are normal; nonpitting and mild edema. LUNGS: Respiratory rate increased; decreased breath sounds. ABDOMEN: Soft, nontender, liver spleen not palpable, no masses palpable. PSYCH: Alert and oriented x3; mood and affect normal MUSCULAR skeletal: Evidence of OA NEUROLOGICAL: Cranial nerves grossly intact; no facial asymmetry, power and sensation grossly intact. LYMPHATICS: No lymph nodes palpable in the axilla and neck INVESTIGATIONS, reviewed in the clinical context: WBC 7.8 hemoglobin 13.9 platelets 194 sodium 131 potassium 4 BUN 101 creatinine 3.3 UA negative Previous labs: BUN 83 creatinine 3.1 on 06/18/2021 BUN 62 creatinine 2.3 on 06/07/2021 Assessment and plan: -Acute kidney injury, prerenal from decreased oral intake. Gentle hydration. 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 Lopressor 25 mg twice a day -Obstructive sleep apnea uses CPAP -Hypothyroid 125 g Synthroid daily -Primary osteoarthritis Pain medications as needed -Chronic gait dysfunction, uses a walker at baseline Fall precautions Home medications resumed. Hold diuretics to include Zaroxolyn, Lasix. Renal Ultrasound. IV fluids at 50 mL an hour. Care was discussed with the patient and family the bedside. Given the complexity and severity of patient's condition expect the patient to be in the hospital at least for 2 overnights Past Medical History Past Medical History: Cancer, COPD, Hyperlipidemia, Hypertension, Sleep Apnea/CPAP/BIPAP, Thyroid Disorder Additional Past Medical History / Comment(s): HX COLON AND UTERINE CANCER. USES CPAP-INSTRUCTED TO BRING AND LEAVE IN CAR IN CASE OF ADMISSION. PAST HX BLEEDING ULCER History of Any Multi-Drug Resistant Organisms: None Reported Past Surgical History: Appendectomy, Bowel Resection, Cholecystectomy, Hernia Repair, Hysterectomy, Joint Replacement, Orthopedic Surgery, Tonsillectomy Additional Past Surgical History / Comment(s): COLONOSCOPY AND EGD. LT SHOULDER REPLACEMENT. BILAT TKA. HERNIA REPAIR X 4. OVARIAN CYSTECTOMY X 2. CTR-BILAT Past Anesthesia/Blood Transfusion Reactions: No Reported Reaction Past Psychological History: Anxiety Smoking Status: Former smoker Past Alcohol Use History: None Reported Past Drug Use History: None Reported - Past Family History Mother Family Medical History: No Reported History Medications and Allergies Home Medications Medication Instructions Recorded Confirmed Type Aspirin EC [Ecotrin Low Dose] 81 mg PO DAILY 02/13/17 06/19/21 History Calcium Citrate/Vitamin D3 3 tab PO DAILY 02/13/17 06/19/21 History [Calcitrate + Vit D Caplet] Ipratropium-Albuterol Nebulize 3 ml INHALATION RT-Q4H 02/13/17 06/19/21 History [Duoneb 0.5 mg-3 mg/3 ml Soln] Levothyroxine Sodium [Synthroid] 125 mcg PO DAILY@0600 02/13/17 06/19/21 History Pyridoxine HCl (Vitamin B6) 100 mg PO DAILY 02/13/17 06/19/21 History [Vitamin B-6] Budesonide [Pulmicort] 0.5 mg INHALATION RT-BID 02/22/20 06/19/21 History Metoprolol Tartrate [Lopressor] 50 mg PO DAILY 02/22/20 06/19/21 History Montelukast [Singulair] 10 mg PO HS 02/22/20 06/19/21 History Multivitamins, Thera [Multivitamin 1 tab PO DAILY 02/22/20 06/19/21 History (formulary)] [place]-3 Fatty Acids/Fish Oil [Fish 1 cap PO DAILY 02/22/20 06/19/21 History Oil 1,000 mg Softgel] Ascorbic Acid [Vitamin C] 1,000 mg PO DAILY tab 02/24/20 06/19/21 Rx Atorvastatin [Lipitor] 20 mg PO HS tab 02/24/20 06/19/21 Rx ALPRAZolam [Xanax] 0.25 mg PO Q8H PRN 06/19/21 06/19/21 History Apixaban [Eliquis] 2.5 mg PO BID 06/19/21 06/19/21 History Famotidine [Pepcid] 10 mg PO BID 06/19/21 06/19/21 History Furosemide [Lasix] 40 mg PO TID@0600,0900,1400 06/19/21 06/19/21 History Ipratropium-Albuterol Nebulize 3 ml INHALATION RT-Q4H PRN 06/19/21 06/19/21 Hist ory [Duoneb 0.5 mg-3 mg/3 ml Soln] Methyl Salicylate/Menth/Camph 1 patch TOPICAL DAILY 06/19/21 06/19/21 History [Salonpas 3.1%-6.0%-10.0% Patch] Polyethylene Glycol 3350 [Miralax] 17 gm PO DAILY PRN 06/19/21 06/19/21 History Potassium Chloride ER [K-Dur 10] 10 meq PO BID 06/19/21 06/19/21 History lisinopriL [Zestril] 5 mg PO DAILY 06/19/21 06/19/21 History metOLazone [Zaroxolyn] 5 mg PO DAILY@0600 06/19/21 06/19/21 History traMADol HCL [Ultram] 50 mg PO Q4H PRN 06/19/21 06/19/21 History Allergies Allergy/AdvReac Type Severity Reaction Status Date / Time No Known Allergies Allergy Verified 06/19/21 13:04 Physical Exam Vitals: Vital Signs Temp Pulse Resp BP Pulse Ox 06/19/21 14:10 61 20 110/58 96 06/19/21 12:15 97.3 F L 65 20 118/63 96 Intake and Output 06/19/21 06/19/21 06/19/21 06:59 14:59 22:59 Other: Weight 136.078 kg Results CBC & Chem 7: 06/19/21 12:36 06/19/21 12:36 Labs: Abnormal Lab Results - Last 24 Hours (Table) 06/19/21 Range/Units 12:36 Sodium 131 L (137-145) mmol/L Chloride 87 L (98-107) mmol/L Carbon Dioxide 35 H (22-30) mmol/L BUN 101 H* (7-17) mg/dL Creatinine 3.30 H (0.52-1.04) mg/dL Calcium 10.8 H (8.4-10.2) mg/dL Phosphorus 5.4 H (2.5-4.5) mg/dL AST 38 H (14-36) U/L
[2021-06-19] MEDS: SODIUM CHLORIDE 0.9% 1,000 ML IV SCH (18:35)
[2021-06-19] MEDS: IPRATROPIUM-ALBUTEROL 3 ML NEB INHALATION SCH ×2 (19:48→20:50)
[2021-06-19] MEDS: BUDESONIDE 0.5 MG/2 ML NEBU INHALATION SCH (20:50)
[2021-06-19] MEDS: traMADol 50 MG TAB PO PRN (21:14)
[2021-06-19] MEDS: ALPRAZolam 0.25 MG TAB PO PRN (21:15)
[2021-06-19] MEDS: FAMOTIDINE 20 MG TAB PO SCH (21:15)
[2021-06-19] MEDS: MONTELUKAST 10 MG TAB PO SCH (21:15)
[2021-06-19] MEDS: APIXABAN 2.5 MG TABLET PO SCH (21:16)
[2021-06-19] MEDS: ATORVASTATIN 20 MG TAB PO SCH (21:16)
[2021-06-19] MEDS: POTASSIUM CHLORIDE ER 10 MEQ TAB.ER.PRT PO SCH (21:16)
[2021-06-19] MEDS: METOPROLOL TARTRATE 25 MG TAB PO SCH (21:35)
--- NOTE | 2021-06-19 23:23 | US ---
EXAMINATION TYPE: US kidneys/renal and bladder DATE OF EXAM: 06/19/2021 COMPARISON: 02/23/2020 CLINICAL HISTORY: Evaluate for CK D. abnormal labs. EXAM MEASUREMENTS: Right Kidney: 12.2 x 3.9 x 4.5 cm Left Kidney: 9.9 x 3.5 x 4.6 cm Limited due to patient body habitus. Right Kidney: Multiple cysts seen. Mid medial cyst= 2.4 x 2.4 x 2.5 cm. Anterior lower pole = 2.8 x 2.7 x 1.8 cm Left Kidney: suboptimal visualized. Lower pole lateral cyst= 2.8 x 2.0 x 1.9 cm Bladder: Not well visualized Bilateral Jets not seen due to bladder not well visualized * IMPRESSION: There are bilateral renal cortical cysts. No evidence of solid renal mass or obstruction. Urinary efrain dder not well evaluated. No adverse change compared to old exam.
[2021-06-20] MEDS: IPRATROPIUM-ALBUTEROL 3 ML NEB INHALATION SCH ×6 (00:44→18:54)
[2021-06-20] MEDS: traMADol 50 MG TAB PO PRN ×2 (01:44→16:54)
[2021-06-20] MEDS: LEVOTHYROXINE 125 MCG TAB PO SCH (05:50)
[2021-06-20 06:42] LABS: African American GFR (CKD) 15 (>60 ml/min/1.73 sqM); Anion Gap 7 mmol/L; Blood Urea Nitrogen 98 mg/dL (7-17); Calcium 10.5 mg/dL (8.4-10.2); Carbon Dioxide 37 mmol/L (22-30); Chloride 90 mmol/L (98-107); Glucose 116 mg/dL (74-99); Non-African American GFR(CKD) 13 (>60 ml/min/1.73 sqM); Sodium 134 mmol/L (137-145)
[2021-06-20] MEDS: ASCORBIC ACID 500 MG TAB PO SCH (07:28)
[2021-06-20] MEDS: APIXABAN 2.5 MG TABLET PO SCH ×2 (07:29→22:18)
[2021-06-20] MEDS: MULTIVITAMINS, THERA 1 EACH TAB PO SCH (07:29)
[2021-06-20] MEDS: POTASSIUM CHLORIDE ER 10 MEQ TAB.ER.PRT PO SCH (07:29)
[2021-06-20] MEDS: ASPIRIN 81 MG PO SCH (07:30)
[2021-06-20] MEDS: METOPROLOL TARTRATE 25 MG TAB PO SCH ×2 (07:36→22:18)
[2021-06-20] MEDS: BUDESONIDE 0.5 MG/2 ML NEBU INHALATION SCH ×2 (07:59→18:54)
[2021-06-20] MEDS: PYRIDOXINE 50 MG TAB PO SCH (08:48)
[2021-06-20] MEDS ORDERED: CALCIUM CARB-VIT D 500 MG-5 MCG TAB PO SCH (09:00)
[2021-06-20] MEDS ORDERED: NON FORMULARY DRUG (Omega-3 Fatty Acids/Fish Oil [Fish Oil 1,000 Mg Softgel] 1 EACH Capsul PO SCH (09:00)
[2021-06-20 11:06] VITALS: BMI 47.8
[2021-06-20] MEDS: SODIUM CHLORIDE 0.9% 1,000 ML IV SCH (12:46)
--- NOTE | 2021-06-20 13:39 | P.PN ---
Progress Note - Text Progress Note Date: 06/20/21 Chief Complaint: Abnormal kidney function History of presenting complaint: This is a very pleasant 86-year-old patient of Dr. Jerome Monroe. Chronic stable medical conditions include COPD, hypertension, hyperlipidemia, sleep apnea, hypothyroid. Permanent pacemaker, CKD Does use CPAP. Patient has been at [facility] in [facility] for inpatient rehab. For about 3 weeks. Prior to that she was at [facility] with fluid overload and significant amount of fluid was removed. She was sent in today because of worsening renal function. Patient does make urine. Does use a walker to get about. Appetite is fair. No burning in the urine. No fever no chills. Patient started to lose weight and is eating less. Decreased fluid intake. Admitted with acute kidney injury, prerenal from decreased oral intake. Gentle hydration. Diuretics held. June 20. Sitting up in a chair. Feeling a bit better. Had a breakfast. Is a bit stronger. Was getting 50 mL an hour of IV fluids. Discontinued this afternoon by nephrology. Review of systems: Was done for constitutional, cardiovascular, GI, pulmonary. relevant finding as above Active Medications Acetaminophen (Acetaminophen Tab 325 Mg Tab) 650 mg PO Q6HR PRN PRN Reason: Mild Pain or Fever > 100.5 Al Hydroxide/Mg Hydroxide (Mag Hydrox/Al Hydrox/Simeth 30 Ml Cup) 15 ml PO Q6HR PRN PRN Reason: Indigestion Albuterol/Ipratropium (Ipratropium-Albuterol 3 Ml Neb) 3 ml INHALATION RT-Q4H PRN PRN Reason: Shortness Of Breath Or Wheezing Albuterol/Ipratropium (Ipratropium-Albuterol 3 Ml Neb) 3 ml INHALATION RT-QID [facility] Last Admin: 06/20/21 11:49 Dose: 3 ml Documented by: Alprazolam (Alprazolam 0.25 Mg Tab) 0.25 mg PO Q8H PRN PRN Reason: INCREASED ANXIETY Last Admin: 06/19/21 21:15 Dose: 0.25 mg Documented by: Apixaban (Apixaban 2.5 Mg Tablet) 2.5 mg PO BID [facility]; Protocol Last Admin: 06/20/21 07:29 Dose: 2.5 mg Documented by: Ascorbic Acid (Ascorbic Acid 500 Mg Tab) 1,000 mg PO DAILY [facility] Last Admin: 06/20/21 07:28 Dose: 1,000 mg Documented by: Aspirin (Aspirin 81 Mg) 81 mg PO DAILY [facility] Last Admin: 06/20/21 07:30 Dose: 81 mg Documented by: Atorvastatin Calcium (Atorvastatin 20 Mg Tab) 20 mg PO HS [facility] Last Admin: 06/19/21 21:16 Dose: 20 mg Documented by: Budesonide (Budesonide 0.5 Mg/2 Ml Nebu) 0.5 mg INHALATION RT-BID [facility] Last Admin: 06/20/21 07:59 Dose: 0.5 mg Documented by: Famotidine (Famotidine 20 Mg Tab) 10 mg PO DAILY@2100 [facility] Last Admin: 06/19/21 21:15 Dose: 10 mg Documented by: Lactulose (Lactulose 20 Gm/30 Ml Cup) 20 gm PO DAILY PRN PRN Reason: Constipation Levothyroxine Sodium (Levothyroxine 125 Mcg Tab) 125 mcg PO DAILY@0600 [facility] Last Admin: 06/20/21 05:50 Dose: 125 mcg Documented by: Melatonin (Melatonin 3 Mg Tablet) 3 mg PO HS PRN PRN Reason: Insomnia Last Admin: 06/19/21 21:16 Dose: 3 mg Documented by: Metoprolol Tartrate (Metoprolol Tartrate 25 Mg Tab) 25 mg PO BID [facility] Last Admin: 06/20/21 07:36 Dose: 25 mg Documented by: Montelukast Sodium (Montelukast 10 Mg Tab) 10 mg PO HS [facility] Last Admin: 06/19/21 21:15 Dose: 10 mg Documented by: Multivitamins (Multivitamins, Thera 1 Each Tab) 1 each PO DAILY [facility] Last Admin: 06/20/21 07:29 Dose: 1 each Documented by: Naloxone HCl (Naloxone 0.4 Mg/Ml 1 Ml Vial) 0.2 mg IV Q2M PRN PRN Reason: Opioid Reversal Ondansetron HCl (Ondansetron 4 Mg/2 Ml Vial) 4 mg IVP Q8HR PRN PRN Reason: Nausea And Vomiting Polyethylene Glycol (Polyethylene Glycol 3350 17 Gm Powd.Pack) 17 gm PO DAILY PRN PRN Reason: Constipation Pyridoxine HCl (Pyridoxine 50 Mg Tab) 100 mg PO DAILY [facility] Last Admin: 06/20/21 08:48 Dose: 100 mg Documented by: Tramadol HCl (Tramadol 50 Mg Tab) 50 mg PO Q4H PRN PRN Reason: Moderate to Severe Pain Last Admin: 06/20/21 01:44 Dose: 50 mg Documented by: Past medical history to include: COPD, hypertension, hyperlipidemia, obstructive sleep apnea uses CPAP, hypothyroid, permanent pacemaker for heart block, CK D, bleeding peptic ulcer disease Social history: Patient stopped smoking in 1974. Currently at [facility] in [facility]. Family history: Reviewed, noncontributory to presentation Physical examination: VITAL SIGNS: 97.6, 68, 20, 104/64, 98% on 2 L GENERAL: Sitting up in a chair, awake, a bit tired EYES: Pupils equal. Conjunctiva normal. HEENT: External appearance of nose and ears normal, oral cavity grossly normal. NECK: Short thick neck unable to assess JVD, no mass palpable. HEART: First and second heart sounds are normal; nonpitting and mild edema. LUNGS: Respiratory rate increased; decreased breath sounds. ABDOMEN: Soft, nontender, liver spleen not palpable, no masses palpable. PSYCH: Alert and oriented x3; mood and affect normal MUSCULAR skeletal: Evidence of OA INVESTIGATIONS, reviewed in the clinical context: June 20: Sodium 134 potassium 4 BUN 98 creatinine 3.06 bicarb 37 WBC 7.8 hemoglobin 13.9 platelets 194 sodium 131 potassium 4 BUN 101 creatinine 3.3 UA negative Previous labs: BUN 83 creatinine 3.1 on 06/18/2021 BUN 62 creatinine 2.3 on 06/07/2021 Assessment and plan: -Acute kidney injury, prerenal from decreased oral intake.: Slowly improving Gentle hydration overnight. IV fluids stop this afternoon.. 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 Lopressor 25 mg twice a day -Obstructive sleep apnea uses CPAP -Hypothyroid 125 g Synthroid daily -Primary osteoarthritis Pain medications as needed -Chronic gait dysfunction, uses a walker at baseline Fall precautions Continue current medication treatment plan. Continue to hold diuretics. Repeat labs in the morning. Discussed with patient.
--- NOTE | 2021-06-20 13:42 | CONS ---
CONSULTATION REASON FOR CONSULTATION: Renal failure. HISTORY OF PRESENT ILLNESS: Patient is an 86-year-old female who was admitted to the hospital due to worsening renal function. Patient was recently discharged from the hospital about 3 weeks ago to [facility]. Her labs were noted to be deteriorating and therefore she was admitted. Patient was recently diuresed and her serum creatinine previously was at 1.5 mg/dL on 05/31/2021. It increased to 2.3 on 06/07, and now she was admitted with a creatinine of 3.3. Metolazone is currently on hold. Lisinopril is on hold and patient is maintained on IV fluids. Her serum creatinine did come down to 3.0 today. Blood pressure has been on the lower side, with systolic about 97 to 96 mmHg. Patient has been voiding. Ultrasound of the kidneys done yesterday shows no evidence of hydronephrosis. Bladder was not assessed. PAST MEDICAL HISTORY: Significant for obstructive sleep apnea, COPD, hyperlipidemia, hypertension, hypothyroidism, colon and uterine cancer. PAST SURGICAL HISTORY: Tonsillectomy, appendectomy, bowel resection, hernia repair, hysterectomy, left shoulder arthroplasty, bilateral knee arthroplasty, bilateral cataract surgery. SOCIAL HISTORY: Patient is a former smoker. No history of drug abuse or alcohol abuse. MEDICATIONS: Medications prior to admission included aspirin, Synthroid, vitamin B, Lopressor, Singulair, vitamin C, Lipitor, Xanax, Eliquis, Pepcid, Lasix, lisinopril, potassium, Zaroxolyn, Ultram. ALLERGIES: NONE. PHYSICAL EXAMINATION: Patient is currently comfortable, awake. She is not in any acute distress. Alert, oriented x3. Blood pressure is 108/70, heart rate 70 per minute. She is afebrile. EXAMINATION OF THE HEART: S1 and S2. EXAMINATION OF LUNGS: Bilateral breath sounds are heard. Abdomen is soft, non-tender, obese. Examination of lower extremities shows edema 3+ bilaterally with chronic skin changes. CLOTH EDGE SINGER EXAM: Grossly intact. LABS: Sodium 134, potassium 4.0, chloride 90. CO2 is 37, BUN 98, creatinine 3.06, calcium 10.8 mg/dL, hemoglobin 13.9. UA shows no blood, no protein, completely clear. Serologies negative for coronavirus PCR. ASSESSMENT: 1. Acute kidney injury associated with recent diuresis as well as hypotension, hypoperfusion in the setting of use of PEPPER inhibitors. Currently patient is receiving IV fluids. Her renal function has improved and since she continues to have edema, I will hold off on the IV fluids for now. Continue to hold off on the antihypertensive medications, particularly PEPPER inhibitor/angiotensin receptor blockers. 2. Hypercalcemia. Check PTH levels, serum and urine immunofixation and vitamin D levels. 3. Morbid obesity. 4. Chronic obstructive pulmonary disease. 5. Chronic edema, most likely associated with elevated right heart pressures associated with obstructive sleep apnea. 6. Hypothyroidism, maintained on supplementation. 7. Osteoarthritis, status post shoulder and bilateral knee arthroplasty. PLAN: Discontinue IV fluids. Continue to hold off on PEPPER inhibitors. Repeat labs in a.m. Hold potassium, as patient is currently off diuretics. Monitor urine output accurately. Thank you for this consultation. Will continue to follow the patient with you during her hospitalization. ELVIRA / ELDON: [id number] /
[2021-06-20] MEDS: ALPRAZolam 0.25 MG TAB PO PRN (16:54)
[2021-06-20] MEDS: MONTELUKAST 10 MG TAB PO SCH (22:18)
[2021-06-20] MEDS: ATORVASTATIN 20 MG TAB PO SCH (22:18)
[2021-06-20] MEDS: FAMOTIDINE 20 MG TAB PO SCH (22:19)
[2021-06-20] MEDS: CALCIUM CARBONATE LIQUID 500 MG/5 ML CUP PO SCH (23:34)
[2021-06-21] MEDS: traMADol 50 MG TAB PO PRN ×2 (02:03→11:14)
[2021-06-21] MEDS: LEVOTHYROXINE 125 MCG TAB PO SCH (06:21)
[2021-06-21 07:01] LABS: African American GFR (CKD) 20 (>60 ml/min/1.73 sqM); Anion Gap 6 mmol/L; Blood Urea Nitrogen 87 mg/dL (7-17); Calcium 10.6 mg/dL (8.4-10.2); Carbon Dioxide 36 mmol/L (22-30); Chloride 93 mmol/L (98-107); Glucose 118 mg/dL (74-99); Non-African American GFR(CKD) 18 (>60 ml/min/1.73 sqM); Potassium 3.8 mmol/L (3.5-5.1); Sodium 135 mmol/L (137-145)
[2021-06-21] MEDS ORDERED: CALCIUM CARBONATE LIQUID 500 MG/5 ML CUP PO SCH (07:30)
[2021-06-21] MEDS: IPRATROPIUM-ALBUTEROL 3 ML NEB INHALATION SCH ×3 (07:39→15:03)
[2021-06-21] MEDS: BUDESONIDE 0.5 MG/2 ML NEBU INHALATION SCH (07:39)
[2021-06-21] MEDS: ASPIRIN 81 MG PO SCH (08:22)
[2021-06-21] MEDS: ASCORBIC ACID 500 MG TAB PO SCH (08:22)
[2021-06-21] MEDS: METOPROLOL TARTRATE 25 MG TAB PO SCH (08:22)
[2021-06-21] MEDS: CALCIUM CARBONATE LIQUID 500 MG/5 ML CUP PO SCH ×2 (08:22→13:12)
[2021-06-21] MEDS: APIXABAN 2.5 MG TABLET PO SCH (08:22)
[2021-06-21] MEDS: MULTIVITAMINS, THERA 1 EACH TAB PO SCH (08:22)
[2021-06-21] MEDS: PYRIDOXINE 50 MG TAB PO SCH (08:23)
[2021-06-21 08:35] LABS: Angiotensin-1 Converting Enz. <3 U/L (8-52)
[2021-06-21] MEDS: ALPRAZolam 0.25 MG TAB PO PRN (11:14)
--- NOTE | 2021-06-21 12:01 | P.CRDCN ---
History of Present Illness History of present illness: HISTORY OF PRESENTING ILLNESS This is a pleasant 86-year-old female past medical history significant for obstructive sleep apnea with CPAP, hypertension, aortic stenosis status post TAVR at [facility] in 2017, nonobstructive coronary disease by cardiac cath in 2016, high degree AV block status post dual-chamber pacemaker insertion on 02/2020, hypertension, dyslipidemia, former smoker. She follows in the office with Dr. Calderon. We have been asked to see in consultation for history of pacemaker and possible Vtach. Patient presents to the emergency department with BRENDA. Patient states that she was at [facility] for about 7 days with volume overload and was IV diuresed. She then was discharged to [facility] for Rehab. She had labs drawn as an outpatient was found to have her serum creatinine of 3.1 and was told to present to the emergency department. Patient denies any chest pain, palpitations, shortness of breath, lightheadedness, dizziness, symptoms of presyncope or syncope. She denies any symptoms orthopnea or PND. Her diuretics were held and she started on IV fluids. Nephrology consult it and believes that indicate is associated with recent diuresis as well as hypotension and hypoperfusion in the setting use of Luis inhibitors. Patient's pacemaker was checked in November 2020 and patient was started on Eliquis 2.5mg BID by Dr. Calderon, most likely diagnosed with paroxysmal atrial fibrillation. DIAGNOSTICS No EKG to review at this time Telemetry tracings indicate ventricular paced rhythm no evidence of V. tach noted. Ultrasound revealed bilateral renal cortical cyst. No evidence of mass or obstruction. Laboratory reviewed, sodium 135, potassium 3.8, BUN 87, serum creatinine 2.45 Current cardiac medications include Lasix 40 mg 3 times a day, Eliquis 2.5 mg twice a day, metoprolol titrate 50 mg daily, metolazone 5 mg daily, lisinopril 5 mg daily, atorvastatin 20 mg nightly, aspirin 81 mg daily Echo 04/18/2020 revealed EF 55%, grade 2 diastolic dysfunction, transcatheter AV prosthesis with normal function. No prosthetic valvular regurgitation. Mild to moderate MR, mild TR, moderately increased PAS PE, moderate pulmonic regurgitation. REVIEW OF SYSTEMS At the time of my exam: CONSTITUTIONAL: Denies fever or chills. CARDIOVASCULAR: Denies chest pain, shortness of breath, orthopnea, PND or palpitations. RESPIRATORY: Denies cough. GASTROINTESTINAL: Denies abdominal pain, diarrhea, constipation, nausea or vomiting. MUSCULOSKELETAL: Denies myalgias. NEUROLOGIC: Denies numbness, tingling, headacbe or weakness. ENDOCRINE: Denies fatigue, weight change, polydipsia or polyurina. GENITOURINARY: Denies burning, hematuria or urgency with micturation. HEMATOLOGIC: Denies history of anemia or bleeding. PHYSICAL EXAMINATION Blood pressure 108/64, heart rate 76, afebrile, oxygen saturation is 92% on 2 L nasal cannula CONSTITUTIONAL: No apparent distress. HEENT: Head is normocephalic. Pupils are equal, round. Sclerae anicteric. Mucous membranes of the mouth are moist. No JVD. No carotid bruit. CHEST EXAMINATION: Lungs are clear to auscultation. No chest wall tenderness is noted on palpation or with deep breathing. HEART EXAMINATION: Regular rate and rhythm. S1, S2 heard. ABDOMEN: Soft, nontender. Positive bowel sounds. EXTREMITIES: 2+ peripheral pulses, no lower extremity edema and no calf tenderness. NEUROLOGIC EXAMINATION: Patient is awake, alert and oriented x3. ASSESSMENT Acute kidney injury, improving Objective sleep apnea Hypertension Aortic stenosis status post TAVR in 2017 Nonobstructive coronary artery disease History of high degree AV block status post dual-chamber pacemaker insertion 02/2020 History of hypertension Dyslipidemia Former smoker Hypercalcemia Morbid Obesity BMI 47 Paroxysmal atrial fibrillation on Eliquis PLAN No evidence of Vtach on cardiac telemetry. Device interrogation completed, patient with episodes of atrial fibrillation, no evidence of Vtach, no acute findings, pacemaker functioning normally. ACEI and diuretics on hold for BRENDA Continue statin, metoprolol tartrate Continue Eliquis Rest of management per primary We will follow the patient as needed. Please reach out with further questions or concerns. Nurse Practitioner note has been reviewed, I agree with a documented findings and plan of care. Patient was seen and examined. Past Medical History Past Medical History: Cancer, COPD, Hyperlipidemia, Hypertension, Sleep Apnea/CPAP/BIPAP, Thyroid Disorder Additional Past Medical History / Comment(s): HX COLON AND UTERINE CANCER. USES CPAP-INSTRUCTED TO BRING AND LEAVE IN CAR IN CASE OF ADMISSION. PAST HX BLEEDING ULCER History of Any Multi-Drug Resistant Organisms: None Reported Past Surgical History: Appendectomy, Bowel Resection, Cholecystectomy, Hernia Repair, Hysterectomy, Joint Replacement, Orthopedic Surgery, Tonsillectomy Additional Past Surgical History / Comment(s): COLONOSCOPY AND EGD. LT SHOULDER REPLACEMENT. BILAT TKA. HERNIA REPAIR X 4. OVARIAN CYSTECTOMY X 2. CTR-BILAT Past Anesthesia/Blood Transfusion Reactions: No Reported Reaction Past Psychological History: Anxiety Smoking Status: Former smoker Past Alcohol Use History: None Reported Additional Past Alcohol Use History / Comment(s): QUIT SMOKING IN 1974 Past Drug Use History: None Reported - Past Family History Mother Family Medical History: No Reported History Medications and Allergies Home Medications Medication Instructions Recorded Confirmed Type Aspirin EC [Ecotrin Low Dose] 81 mg PO DAILY 02/13/17 06/19/21 History Calcium Citrate/Vitamin D3 3 tab PO DAILY 02/13/17 06/19/21 History [Calcitrate + Vit D Caplet] Ipratropium-Albuterol Nebulize 3 ml INHALATION RT-Q4H 02/13/17 06/19/21 History [Duoneb 0.5 mg-3 mg/3 ml Soln] Levothyroxine Sodium [Synthroid] 125 mcg PO DAILY@0600 02/13/17 06/19/21 History Pyridoxine HCl (Vitamin B6) 100 mg PO DAILY 02/13/17 06/19/21 History [Vitamin B-6] Budesonide [Pulmicort] 0.5 mg INHALATION RT-BID 02/22/20 06/19/21 History Metoprolol Tartrate [Lopressor] 50 mg PO DAILY 02/22/20 06/19/21 History Montelukast [Singulair] 10 mg PO HS 02/22/20 06/19/21 History Multivitamins, Thera [Multivitamin 1 tab PO DAILY 02/22/20 06/19/21 History (formulary)] [place]-3 Fatty Acids/Fish Oil [Fish 1 cap PO DAILY 02/22/20 06/19/21 History Oil 1,000 mg Softgel] Ascorbic Acid [Vitamin C] 1,000 mg PO DAILY tab 02/24/20 06/19/21 Rx Atorvastatin [Lipitor] 20 mg PO HS tab 02/24/20 06/19/21 Rx ALPRAZolam [Xanax] 0.25 mg PO Q8H PRN 06/19/21 06/19/21 History Apixaban [Eliquis] 2.5 mg PO BID 06/19/21 06/19/21 History Famotidine [Pepcid] 10 mg PO BID 06/19/21 06/19/21 History Furosemide [Lasix] 40 mg PO TID@0600,0900,1400 06/19/21 06/19/21 History Ipratropium-Albuterol Nebulize 3 ml INHALATION RT-Q4H PRN 06/19/21 06/19/21 History [Duoneb 0.5 mg-3 mg/3 ml Soln] Methyl Salicylate/Menth/Camph 1 patch TOPICAL DAILY 06/19/21 06/19/21 History [Salonpas 3.1%-6.0%-10.0% Patch] Polyethylene Glycol 3350 [Miralax] 17 gm PO DAILY PRN 06/19/21 06/19/21 History Potassium Chloride ER [K-Dur 10] 10 meq PO BID 06/19/21 06/19/21 History lisinopriL [Zestril] 5 mg PO DAILY 06/19/21 06/19/21 History metOLazone [Zaroxolyn] 5 mg PO DAILY@0600 06/19/21 06/19/21 History traMADol HCL [Ultram] 50 mg PO Q4H PRN 06/19/21 06/19/21 History Allergies Allergy/AdvReac Type Severity Reaction Status Date / Time No Known Allergies Allergy Verified 06/19/21 13:04 Physical Exam Vitals: Vital Signs Temp Pulse Pulse Resp BP Pulse Ox 06/21/21 08:26 76 108/64 06/21/21 08:05 72 06/21/21 07:39 72 06/21/21 04:33 97.8 F 53 L 20 103/49 92 L 06/20/21 20:00 78 16 06/20/21 19:53 97.5 F L 78 16 112/56 96 06/20/21 19:07 78 06/20/21 18:54 76 06/20/21 15:23 64 06/20/21 15:09 64 06/20/21 12:01 64 06/20/21 11:49 60 06/20/21 11:42 97.6 F 68 20 104/64 98 Intake and Output 06/20/21 06/21/21 06/21/21 22:59 06:59 14:59 Intake Total 1390 550 Output Total 150 Balance 1240 550 Intake: Intake, IV Titration 550 Amount Sodium Chloride 0.9% 1, 550 000 ml @ 50 mls/hr IV . Q20H [facility] Rx#:[id number] Oral 1390 Output: Urine 150 Other: Voiding Method Toilet # Voids 1 6 # Bowel Movements 0 Results 06/19/21 12:36 06/21/21 05:54 Comprehensive Metabolic Panel 06/21/21 Range/Units 05:54 Sodium 135 L (137-145) mmol/L Potassium 3.8 (3.5-5.1) mmol/L Chloride 93 L (98-107) mmol/L Carbon Dioxide 36 H (22-30) mmol/L BUN 87 H (7-17) mg/dL Creatinine 2.45 H (0.52-1.04) mg/dL Glucose 118 H (74-99) mg/dL Calcium 10.6 H (8.4-10.2) mg/dL Current Medications Generic Name Dose Route Start Last Admin Trade Name Freq PRN Reason Stop Dose Admin Acetaminophen 650 mg 06/19/21 13:35 Acetaminophen Tab 325 Mg Tab PO Q6HR PRN Mild Pain or Fever > 100.5 Al Hydroxide/Mg Hydroxide 15 ml 06/19/21 13:35 Mag Hydrox/Al Hydrox/Simeth 30 Ml Cup PO Q6HR PRN Indigestion Albuterol/Ipratropium 3 ml 06/19/21 13:33 Ipratropium-Albuterol 3 Ml Neb INHALATION RT-Q4H PRN Shortness Of Breath Or Wheezing Albuterol/Ipratropium 3 ml 06/20/21 08:00 06/21/21 07:39 Ipratropium-Albuterol 3 Ml Neb INHALATION 3 ml RT-QID [facility] Administration Alprazolam 0.25 mg 06/19/21 13:33 06/20/21 16:54 Alprazolam 0.25 Mg Tab PO 0.25 mg Q8H PRN Administration INCREASED ANXIETY Apixaban 2.5 mg 06/19/21 21:00 06/21/21 08:22 Apixaban 2.5 Mg Tablet PO 2.5 mg BID [facility]SON Administration Protocol Ascorbic Acid 1,000 mg 06/20/21 09:00 06/21/21 08:22 Ascorbic Acid 500 Mg Tab PO 1,000 mg DAILY [facility] Administration Aspirin 81 mg 06/20/21 09:00 06/21/21 08:22 Aspirin 81 Mg PO 81 mg DAILY [facility] Administration Atorvastatin Calcium 20 mg 06/19/21 21:00 06/20/21 22:18 Atorvastatin 20 Mg Tab PO 20 mg HS [facility] Administration Budesonide 0.5 mg 06/19/21 20:00 06/21/21 07:39 Budesonide 0.5 Mg/2 Ml Nebu INHALATION 0.5 mg RT-BID [facility] Administration Calcium Carbonate/Glycine 500 mg 06/20/21 23:23 06/21/21 08:22 Calcium Carbonate Liquid 500 Mg/5 Ml Cup PO 500 mg ACHS [facility] Administration Famotidine 10 mg 06/19/21 21:00 06/20/21 22:19 Famotidine 20 Mg Tab PO 10 mg DAILY@2100 [facility] Administration Lactulose 20 gm 06/19/21 13:35 Lactulose 20 Gm/30 Ml Cup PO DAILY PRN Constipation Levothyroxine Sodium 125 mcg 06/20/21 06:00 06/21/21 06:21 Levothyroxine 125 Mcg Tab PO 125 mcg DAILY@0600 [facility] Administration Melatonin 3 mg 06/19/21 13:35 06/19/21 21:16 Melatonin 3 Mg Tablet PO 3 mg HS PRN Administration Insomnia Metoprolol Tartrate 25 mg 06/19/21 21:00 06/21/21 08:22 Metoprolol Tartrate 25 Mg Tab PO 25 mg BID [facility] Administration Montelukast Sodium 10 mg 06/19/21 21:00 06/20/21 22:18 Montelukast 10 Mg Tab PO 10 mg HS [facility] Administration Multivitamins 1 each 06/20/21 09:00 06/21/21 08:22 Multivitamins, Thera 1 Each Tab PO 1 each DAILY [facility] Administration Naloxone HCl 0.2 mg 06/19/21 13:35 Naloxone 0.4 Mg/Ml 1 Ml Vial IV Q2M PRN Opioid Reversal Ondansetron HCl 4 mg 06/19/21 13:35 Ondansetron 4 Mg/2 Ml Vial IVP Q8HR PRN Nausea And Vomiting Polyethylene Glycol 17 gm 06/19/21 13:33 Polyethylene Glycol 3350 17 Gm Powd.Pack PO DAILY PRN Constipation Pyridoxine HCl 100 mg 06/20/21 09:00 06/21/21 08:23 Pyridoxine 50 Mg Tab PO 100 mg DAILY [facility] Administration Tramadol HCl 50 mg 06/19/21 13:33 06/21/21 02:03 Tramadol 50 Mg Tab PO 50 mg Q4H PRN Administration Moderate to Severe Pain Intake and Output 06/20/21 06/21/21 06/21/21 22:59 06:59 14:59 Intake Total 1390 550 Output Total 150 Balance 1240 550 Intake: Intake, IV Titration 550 Amount Sodium Chloride 0.9% 1, 550 000 ml @ 50 mls/hr IV . Q20H [facility] Rx#:[id number] Oral 1390 Output: Urine 150 Other: Voiding Method Toilet # Voids 1 6 # Bowel Movements 0 06/19/21 12:36 06/21/21 05:54
[2021-06-21 12:36] VITALS: BP 109/70; RESP 16; TEMP 97.5
[2021-06-21 15:05] VITALS: PULSE 72
--- NOTE | 2021-06-21 15:11 | P.DS ---
Providers Date of admission: 06/19/21 13:34 Expected date of discharge: 06/21/21 Attending physician: Tye Pierson Consults: 06/19/21 13:39 Consult Physician Routine Consulting Provider: Gideon Valdes Consult Reason/Comments: Yadira/CKD Do you want consulting provider notified?: Yes 06/20/21 16:29 Consult Physician Routine Consulting Provider: Phi Barnes Consult Reason/Comments: pacemaker, ? runs of VTACH Do you want consulting provider notified?: Yes Primary care [facility]: [facility] Course: Chief Complaint: Abnormal kidney function History of presenting complaint: This is a very pleasant 86-year-old patient of Dr. Jerome Monroe. Chronic stable medical conditions include COPD, hypertension, hyperlipidemia, sleep apnea, hypothyroid. Permanent pacemaker, CKD Does use CPAP. Patient has been at [facility] in the [facility] for inpatient rehab. For about 3 weeks. Prior to that she was at [facility] with fluid overload and significant amount of fluid was removed. She was sent in today because of worsening renal function. Patient does make urine. Does use a walker to get about. Appetite is fair. No burning in the urine. No fever no chills. Patient started to lose weight and is eating less. Decreased fluid intake. Admitted with acute kidney injury, prerenal from decreased oral intake. Gentle hydration. Diuretics held. June 20. Sitting up in a chair. Feeling a bit better. Had a breakfast. Is a bit stronger. Was getting 50 mL an hour of IV fluids. Discontinued this afternoon by nephrology. June 21: Doing better. Creatinine stabilized. Discussed with patient. Will return to [facility]. BY nephrology. Seen by cardiology. Pacemaker check. His Zestril discontinued. Discussion and discharge planning more than 35 minutes Consultation: Dr. Arana from nephrology Dr. Kelly from cardiology Past medical history to include: COPD, hypertension, hyperlipidemia, obstructive sleep apnea uses CPAP, hypothyroid, permanent pacemaker for heart block, CK D, bleeding peptic ulcer disease Social history: Patient stopped smoking in 1974. Currently at [facility] in the [facility]. Family history: Reviewed, noncontributory to presentation Physical examination: VITAL SIGNS: 97.5, 62, 16, 109/70, 97% room air GENERAL: Comfortable, awake EYES: Pupils equal. Conjunctiva normal. HEENT: External appearance of nose and ears normal, oral cavity grossly normal. NECK: Short thick neck unable to assess JVD, no mass palpable. HEART: First and second heart sounds are normal; nonpitting and mild edema. LUNGS: Respiratory rate increased; decreased breath sounds. ABDOMEN: Soft, nontender, liver spleen not palpable, no masses palpable. PSYCH: Alert and oriented x3; mood and affect normal MUSCULAR skeletal: Evidence of OA INVESTIGATIONS, reviewed in the clinical context: June 21: Sodium 135 potassium 3.8 BUN 87 creatinine 2.45 June 20: Sodium 134 potassium 4 BUN 98 creatinine 3.06 bicarb 37 WBC 7.8 hemoglobin 13.9 platelets 194 sodium 131 potassium 4 BUN 101 creatinine 3.3 UA negative Previous labs: BUN 83 creatinine 3.1 on 06/18/2021 BUN 62 creatinine 2.3 on 06/07/2021 Assessment and plan: -Acute kidney injury, prerenal from decreased oral intake.: Slowly improving Patient received IV hydration. 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 Seen by cardiology. -Morbid obesity BMI 51.5 Weight loss measures -COPD in an ex-smoker DuoNeb 4 times a day -Hyperlipidemia Lipitor 20 mg daily at bedtime -Essential hypertension Zestril stopped because of low blood pressure.. Lopressor 25 mg twice a day -Obstructive sleep apnea uses CPAP -Hypothyroid 125 g Synthroid daily -Primary osteoarthritis Pain medications as needed -Chronic gait dysfunction, uses a walker at baseline Fall precautions Disposition: ECF/[facility] in the [place] Plan - Discharge Summary Discharge Rx Participant: No New Discharge Prescriptions: New Metoprolol Tartrate [Lopressor] 25 mg PO BID tab Continue Levothyroxine Sodium [Synthroid] 125 mcg PO DAILY@0600 Aspirin EC [Ecotrin Low Dose] 81 mg PO DAILY Pyridoxine HCl (Vitamin B6) [Vitamin B-6] 100 mg PO DAILY Ipratropium-Albuterol Nebulize [Duoneb 0.5 mg-3 mg/3 ml Soln] 3 ml INHALATION RT-Q4H Calcium Citrate/Vitamin D3 [Calcitrate + Vit D Caplet] 3 tab PO DAILY [place]-3 Fatty Acids/Fish Oil [Fish Oil 1,000 mg Softgel] 1 cap PO DAILY Multivitamins, Thera [Multivitamin (formulary)] 1 tab PO DAILY Montelukast [Singulair] 10 mg PO HS Budesonide [Pulmicort] 0.5 mg INHALATION RT-BID Atorvastatin [Lipitor] 20 mg PO HS tab Ascorbic Acid [Vitamin C] 1,000 mg PO DAILY tab Potassium Chloride ER [K-Dur 10] 10 meq PO BID Apixaban [Eliquis] 2.5 mg PO BID Methyl Salicylate/Menth/Camph [Salonpas 3.1%-6.0%-10.0% Patch] 1 patch TOPICAL DAILY ALPRAZolam [Xanax] 0.25 mg PO Q8H PRN #12 tab PRN Reason: INCREASED ANXIETY Ipratropium-Albuterol Nebulize [Duoneb 0.5 mg-3 mg/3 ml Soln] 3 ml INHALATION RT-Q4H PRN PRN Reason: Shortness Of Breath Or Wheezing Famotidine [Pepcid] 10 mg PO BID Polyethylene Glycol 3350 [Miralax] 17 gm PO DAILY PRN PRN Reason: Constipation Changed Furosemide [Lasix] 40 mg PO BID #0 traMADol HCL [Ultram] 50 mg PO Q4H PRN #18 tab PRN Reason: Moderate To Severe Pain Discontinued Metoprolol Tartrate [Lopressor] 50 mg PO DAILY metOLazone [Zaroxolyn] 5 mg PO DAILY@0600 lisinopriL [Zestril] 5 mg PO DAILY Discharge Medication List Aspirin EC [Ecotrin Low Dose] 81 mg PO DAILY 02/13/17 [History] Calcium Citrate/Vitamin D3 [Calcitrate + Vit D Caplet] 3 tab PO DAILY 02/13/17 [History] Ipratropium-Albuterol Nebulize [Duoneb 0.5 mg-3 mg/3 ml Soln] 3 ml INHALATION RT-Q4H 02/13/17 [History] Levothyroxine Sodium [Synthroid] 125 mcg PO DAILY@0600 02/13/17 [History] Pyridoxine HCl (Vitamin B6) [Vitamin B-6] 100 mg PO DAILY 02/13/17 [History] Budesonide [Pulmicort] 0.5 mg INHALATION RT-BID 02/22/20 [History] Montelukast [Singulair] 10 mg PO HS 02/22/20 [History] Multivitamins, Thera [Multivitamin (formulary)] 1 tab PO DAILY 02/22/20 [History] [place]-3 Fatty Acids/Fish Oil [Fish Oil 1,000 mg Softgel] 1 cap PO DAILY 02/22/20 [History] Ascorbic Acid [Vitamin C] 1,000 mg PO DAILY tab 02/24/20 [Rx] Atorvastatin [Lipitor] 20 mg PO HS tab 02/24/20 [Rx] Apixaban [Eliquis] 2.5 mg PO BID 06/19/21 [History] Famotidine [Pepcid] 10 mg PO BID 06/19/21 [History] Ipratropium-Albuterol Nebulize [Duoneb 0.5 mg-3 mg/3 ml Soln] 3 ml INHALATION RT-Q4H PRN 06/19/21 [History] Methyl Salicylate/Menth/Camph [Salonpas 3.1%-6.0%-10.0% Patch] 1 patch TOPICAL DAILY 06/19/21 [History] Polyethylene Glycol 3350 [Miralax] 17 gm PO DAILY PRN 06/19/21 [History] Potassium Chloride ER [K-Dur 10] 10 meq PO BID 06/19/21 [History] ALPRAZolam [Xanax] 0.25 mg PO Q8H PRN #12 tab 06/21/21 [Rx] Furosemide [Lasix] 40 mg PO BID #0 06/21/21 [Rx] Metoprolol Tartrate [Lopressor] 25 mg PO BID tab 06/21/21 [Rx] traMADol HCL [Ultram] 50 mg PO Q4H PRN #18 tab 06/21/21 [Rx] Follow up Appointment(s)/Referral(s): Melodie Arana MD [STAFF PHYSICIAN] - 10 Days José Miguel Calderon MD [STAFF PHYSICIAN] - 07/08/21 10:15 am Jerome Monroe MD [Primary Care Provider] - 1-2 days
[2021-06-21 18:51] LABS: Vitamin D, 1, 25-Dihydroxy 11 pg/mL (20 - 79)
--- NOTE | 2021-06-21 23:48 | PN ---
PROGRESS NOTE The patient is seen for followup for acute kidney injury. The patient's diuretics were held. She was initially started on IV fluids which were decreased yesterday. Her creatinine has improved to 2.45 from peak of 3.3. Previous creatinine has been at 2.3 and 1.5 mg/dL in May of 2021. This morning, patient is in the bathroom when she is seen. Vital signs are reviewed. Blood pressure 109/70, heart rate 62 per minute. She is afebrile. The patient is not examined. She states that overall she feels well and denies any chest pains or shortness of breath. Lower extremity edema is about the same. TEACHER BALLET exam grossly intact. LABS: Show sodium 135, potassium 3.8, chloride 93, CO2 is 36, BUN 87, serum creatinine 2.45. ASSESSMENT: 1. Acute kidney injury secondary to recent diuresis, hypotension, currently improved. 2. Hypercalcemia. Calcium remains at about 10.5 mg/dL. PTH is not elevated. Vitamin D is low. Luis level is also low. The 25 hydroxy vitamin D is within range. We can continue to monitor the calcium for now. The patient is not on thiazide diuretics prior to admission. This may be related to some degree of immobilization. 3. Morbid obesity. 4. Chronic lower extremity edema. 5. Chronic obstructive pulmonary disease. 6. Hypothyroidism, maintained on supplementation. PLAN: The patient can be discharged. Continue to hold off on LUIS inhibitors for now. Blood pressure remains significantly low. She can resume her diuretics and need to closely monitor renal function and repeat labs in 3-4 days. MMODL / IJN: [id number] /
== END 2021-06-21 17:05 | DRG 683 ==
LOC: SUPCPDRO 12:11 → EC 12:11 → 5NMEDONC 13:34
PROVIDERS: ADMIT Hospitalist; ATTEND Hospitalist
DX: N17.9 Acute kidney failure, unspecified (principal); Z68.42 Body mass index [BMI] 45.0-49.9, adult; I45.89 Other specified conduction disorders; I47.2 Ventricular tachycardia; E03.9 Hypothyroidism, unspecified; E66.01 Morbid (severe) obesity due to excess calories; E78.5 Hyperlipidemia, unspecified; E83.52 Hypercalcemia; E87.70 Fluid overload, unspecified; F41.9 Anxiety disorder, unspecified; G47.33 Obstructive sleep apnea (adult) (pediatric); I25.10 Atherosclerotic heart disease of native coronary artery without angina pectoris; I48.0 Paroxysmal atrial fibrillation; J44.9 Chronic obstructive pulmonary disease, unspecified; I37.1 Nonrheumatic pulmonary valve insufficiency; I12.9 Hypertensive chronic kidney disease with stage 1 through stage 4 chronic kidney disease, or unspecified chronic kidney disease; M19.91 Primary osteoarthritis, unspecified site; N28.1 Cyst of kidney, acquired; Z20.822 Contact with and (suspected) exposure to COVID-19; N18.30 Chronic kidney disease, stage 3 unspecified; Z79.01 Long term (current) use of anticoagulants; Z79.82 Long term (current) use of aspirin; Z79.890 Hormone replacement therapy; Z79.899 Other long term (current) drug therapy; Z85.42 Personal history of malignant neoplasm of other parts of uterus; Z87.891 Personal history of nicotine dependence; Z90.710 Acquired absence of both cervix and uterus; Z95.0 Presence of cardiac pacemaker; Z95.2 Presence of prosthetic heart valve; Z96.612 Presence of left artificial shoulder joint; Z96.653 Presence of artificial knee joint, bilateral; I95.9 Hypotension, unspecified; R26.9 Unspecified abnormalities of gait and mobility
CPT/HCPCS: 36415; 76770; 80048; 80053; 81003; 82164; 82306; 82652; 83735; 83970; 84100; 85025; 85610; 85730; 86334; 86335; 87635; 94640; 99285

== ENCOUNTER 2021-07-18 06:21 | Inpatient (IN) | payer MEDICARE, BC ==
[2021-07-18] MEDS ORDERED: SODIUM CHLORIDE 0.9% 1,000 ML IV STA (06:44)
[2021-07-18 06:59] LABS: Basophils # (A) 0.1 k/uL (0-0.2); Basophils % (A) 1 %; Eosinophils # (A) 0.2 k/uL (0-0.7); Eosinophils % (A) 2 %; HCT 37.1 % (34.0-46.0); HGB 12.8 gm/dL (11.4-16.0); Lymphocytes # (A) 1.5 k/uL (1.0-4.8); Lymphocytes % (A) 17 %; MCH 32.4 pg (25.0-35.0); MCHC 34.4 g/dL (31.0-37.0); MCV 94.1 fL (80.0-100.0); Mean Platelet Volume 7.1; Monocytes # (A) 0.7 k/uL (0-1.0); Monocytes % (A) 8 %; Neutrophils # (A) 6.2 k/uL (1.3-7.7); Neutrophils % (A) 70 %; Platelet Count 199 k/uL (150-450); Poikilocytosis Slight; RBC 3.95 m/uL (3.80-5.40); RDW 15.8 % (11.5-15.5); WBC 8.8 k/uL (3.8-10.6)
[2021-07-18 07:13] LABS: INR 1.1 (<1.2); Partial Thromboplastin Time 25.9 sec (22.0-30.0)
[2021-07-18 07:14] LABS: Albumin 3.3 g/dL (3.5-5.0); Calcium 11.5 mg/dL (8.4-10.2); Total Bilirubin 1.1 mg/dL (0.2-1.3); Total Protein 6.4 g/dL (6.3-8.2)
[2021-07-18 07:30] LABS: Potassium 2.5 mmol/L (3.5-5.1)
[2021-07-18] MEDS ORDERED: POTASSIUM CHLORIDE ER 20 MEQ TAB.ER PO STA (07:33)
--- NOTE | 2021-07-18 07:42 | XR ---
EXAMINATION TYPE: XR chest 2V DATE OF EXAM: 07/18/2021 COMPARISON: Chest x-ray February 25, 2020 HISTORY: Shortness of breath TECHNIQUE: Frontal and lateral views of the chest are obtained. FINDINGS: There is cardiomegaly with dual lead pacemaker and stent graft in the aortic root along wi th calcification aortic knob redemonstrated. Background chronic parenchymal changes with small to tin y right greater than left pleural effusions. Persistent bibasilar opacities more prominent on the rig ht on current study. Surgical changes left shoulder is partially imaged. IMPRESSION: Cardiomegaly with small to tiny bilateral pleural effusions. Mild central vascular conge stion. Correlate for CHF exacerbation. In addition there is bilateral lower lung acute infiltrate and /or atelectasis present. Cannot exclude underlying infection. Right lung findings more prominent from prior.
--- NOTE | 2021-07-18 07:52 | ED ---
SOB HPI - General Chief Complaint: Shortness of Breath Stated Complaint: GERALDO, altered mental status Time Seen by Provider: 07/18/21 06:44 Source: patient, EMS, RN notes reviewed Mode of arrival: EMS Limitations: language barrier - History of Present Illness Initial Comments: Patient is an 86-year-old female that presents to the emergency department for low oxygen from assisted living facility. Patient notes she does have a CPAP but was not wearing it. Patient denies using at home oxygen. Patient was on 2 L via nasal cannula in the room. She notes that she is comfortable while resting in bed. Patient does have a complicated past medical history including acute on chronic systolic heart failure, cardiomegaly, acute kidney failure, malignant neoplasm of the colon, and malignant neoplasm of unspecified ovary, orbital obesity, hyperlipidemia, hypertension, nontraumatic aortic valve stenosis, presents of a cardiac pacemaker. Patient denied any symptoms while sitting in bed currently. Patient denied chest pain headache nausea vomiting diarrhea constipation fever fatigue chills. - Related Data Home Medications Medication Instructions Recorded Confirmed Aspirin EC [Ecotrin Low Dose] 81 mg PO DAILY 02/13/17 07/18/21 Calcium Citrate/Vitamin D3 3 tab PO HS 02/13/17 07/18/21 [Calcitrate + Vit D Caplet] Ipratropium-Albuterol Nebulize 3 ml INHALATION RT-Q4H 02/13/17 07/18/21 [Duoneb 0.5 mg-3 mg/3 ml Soln] Levothyroxine Sodium [Synthroid] 125 mcg PO DAILY@0600 02/13/17 07/18/21 Pyridoxine HCl (Vitamin B6) 100 mg PO DAILY 02/13/17 07/18/21 [Vitamin B-6] Budesonide [Pulmicort] 0.5 mg INHALATION RT-BID 02/22/20 07/18/21 Montelukast [Singulair] 10 mg PO HS 02/22/20 07/18/21 Multivitamins, Thera [Multivitamin 1 tab PO DAILY 02/22/20 07/18/21 (formulary)] [place]-3 Fatty Acids/Fish Oil [Fish 1 cap PO DAILY 02/22/20 07/18/21 Oil 1,000 mg Softgel] Apixaban [Eliquis] 2.5 mg PO BID 06/19/21 07/18/21 Famotidine [Pepcid] 10 mg PO DAILY 06/19/21 07/18/21 Ipratropium-Albuterol Nebulize 3 ml INHALATION RT-Q4H PRN 06/19/21 07/18/21 [Duoneb 0.5 mg-3 mg/3 ml Soln] Polyethylene Glycol 3350 [Miralax] 17 gm PO DAILY PRN 06/19/21 07/18/21 Potassium Chloride ER [K-Dur 10] 10 meq PO BID 06/19/21 07/18/21 Bisacodyl 10 mg PO DAILY 07/18/21 07/18/21 Furosemide [Lasix] 40 mg PO BID@0600,1200 07/18/21 07/18/21 metOLazone 2.5 mg PO TUTHSA 07/18/21 07/18/21 Previous Rx's Medication Instructions Recorded Ascorbic Acid [Vitamin C] 1,000 mg PO DAILY tab 02/24/20 Atorvastatin [Lipitor] 20 mg PO HS tab 02/24/20 ALPRAZolam [Xanax] 0.25 mg PO Q8H PRN #12 tab 06/21/21 Metoprolol Tartrate [Lopressor] 25 mg PO BID tab 06/21/21 traMADol HCL [Ultram] 50 mg PO Q4H PRN #18 tab 06/21/21 Allergies Allergy/AdvReac Type Severity Reaction Status Date / Time No Known Allergies Allergy Verified 07/18/21 07:31 Review of Systems ROS Statement: Those systems with pertinent positive or pertinent negative responses have been documented in the HPI. ROS Other: All systems not noted in ROS Statement are negative. Past Medical History Past Medical History: Cancer, COPD, Hyperlipidemia, Hypertension, Sleep Apnea/CPAP/BIPAP, Thyroid Disorder Additional Past Medical History / Comment(s): HX COLON AND UTERINE CANCER. USES CPAP-INSTRUCTED TO BRING AND LEAVE IN CAR IN CASE OF ADMISSION. PAST HX BLEEDING ULCER History of Any Multi-Drug Resistant Organisms: None Reported Past Surgical History: Appendectomy, Bowel Resection, Cholecystectomy, Hernia Repair, Hysterectomy, Joint Replacement, Orthopedic Surgery, Tonsillectomy Additional Past Surgical History / Comment(s): COLONOSCOPY AND EGD. LT SHOULDER REPLACEMENT. BILAT TKA. HERNIA REPAIR X 4. OVARIAN CYSTECTOMY X 2. CTR-BILAT Past Anesthesia/Blood Transfusion Reactions: No Reported Reaction Past Psychological History: Anxiety Smoking Status: Former smoker Past Alcohol Use History: None Reported Past Drug Use History: None Reported - Past Family History Mother Family Medical History: No Reported History General Exam Limitations: language barrier General appearance: alert, in no apparent distress, obese (Morbid) Head exam: Present: atraumatic, normocephalic, normal inspection Eye exam: Present: normal appearance, PERRL, EOMI. Absent: scleral icterus, conjunctival injection, periorbital swelling ENT exam: Present: normal exam, mucous membranes moist Neck exam: Present: normal inspection Respiratory exam: Present: normal lung sounds bilaterally, other (Nasal cannula placed.). Absent: respiratory distress, wheezes, rales, rhonchi, stridor Cardiovascular Exam: Present: regular rate, normal rhythm, normal heart sounds. Absent: systolic murmur, diastolic murmur, rubs, gallop, clicks GI/Abdominal exam: Present: soft, normal bowel sounds. Absent: distended, tenderness, guarding, rebound, rigid Extremities exam: Present: normal inspection, full ROM, normal capillary refill, other (Bilateral lower extremity edema.). Absent: tenderness, pedal edema, joint swelling, calf tenderness Neurological exam: Present: alert, oriented X3 Psychiatric exam: Present: normal affect, normal mood Skin exam: Present: warm, dry, intact, normal color. Absent: rash Course Vital Signs 07/18/21 07/18/21 07/18/21 06:28 06:59 07:26 Temperature 97.7 F Pulse Rate 60 Respiratory 16 22 17 Rate Blood Pressure 129/67 O2 Sat by Pulse 100 97 Oximetry 07/18/21 08:16 Temperature Pulse Rate 60 Respiratory 17 Rate Blood Pressure 119/68 O2 Sat by Pulse 98 Oximetry Medical Decision Making - Medical Decision Making 86-year-old female sent from assisted living facility for shortness of breath and low oxygen. Labs, EKG, printing estimator, chest x-ray ordered. labs: CBC unremarkable, coagulation within normal limits, CBC shows potassium of 2.5 moderately lower than her baseline of mid threes. 40 mEq of potassium ordered orally. Chest x-ray shows small bilateral pleural effusions, possible CHF exacerbation, Case discussed with Dr. Mckoy, patient will be admitted for possible CHF exacerbation. Dr. Pierson was consulted once a bilateral lower extremities ultrasound - Lab Data Result diagrams: 07/18/21 06:50 12/02/21 06:50 Lab Results 07/18/21 07/18/21 07/18/21 Range/Units 06:50 06:50 06:50 WBC 8.8 (3.8-10.6) k/uL RBC 3.95 (3.80-5.40) m/uL Hgb 12.8 (11.4-16.0) gm/dL Hct 37.1 (34.0-46.0) % MCV 94.1 (80.0-100.0) fL MCH 32.4 (25.0-35.0) pg MCHC 34.4 (31.0-37.0) g/dL RDW 15.8 H (11.5-15.5) % Plt Count 199 (150-450) k/uL MPV 7.1 Neutrophils % 70 % Lymphocytes % 17 % Monocytes % 8 % Eosinophils % 2 % Basophils % 1 % Neutrophils # 6.2 (1.3-7.7) k/uL Lymphocytes # 1.5 (1.0-4.8) k/uL Monocytes # 0.7 (0-1.0) k/uL Eosinophils # 0.2 (0-0.7) k/uL Basophils # 0.1 (0-0.2) k/uL Poikilocytosis Slight PT 12.0 (9.0-12.0) sec INR 1.1 (<1.2) APTT 25.9 (22.0-30.0) sec Sodium 138 (137-145) mmol/L Potassium 2.5 L* (3.5-5.1) mmol/L Chloride 87 L (98-107) mmol/L Carbon Dioxide 40 H (22-30) mmol/L Anion Gap 11 mmol/L BUN 67 H (7-17) mg/dL Creatinine 2.01 H (0.52-1.04) mg/dL Est GFR (CKD-EPI)AfAm 26 (>60 ml/min/1.73 sqM) Est GFR (CKD-EPI)NonAf 22 (>60 ml/min/1.73 sqM) Glucose 132 H (74-99) mg/dL Plasma Lactic Acid Mehul (0.7-2.0) mmol/L Calcium 11.5 H (8.4-10.2) mg/dL Total Bilirubin 1.1 (0.2-1.3) mg/dL AST 46 H (14-36) U/L ALT 22 (4-34) U/L Alkaline Phosphatase 58 (38-126) U/L Troponin I (0.000-0.034) ng/mL NT-Pro-B Natriuret Pep pg/mL Total Protein 6.4 (6.3-8.2) g/dL Albumin 3.3 L (3.5-5.0) g/dL 07/18/21 07/18/21 07/18/21 Range/Units 06:50 06:50 06:50 WBC (3.8-10.6) k/uL RBC (3.80-5.40) m/uL Hgb (11.4-16.0) gm/dL Hct (34.0-46.0) % MCV (80.0-100.0) fL MCH (25.0-35.0) pg MCHC (31.0-37.0) g/dL RDW (11.5-15.5) % Plt Count (150-450) k/uL MPV Neutrophils % % Lymphocytes % % Monocytes % % Eosinophils % % Basophils % % Neutrophils # (1.3-7.7) k/uL Lymphocytes # (1.0-4.8) k/uL Monocytes # (0-1.0) k/uL Eosinophils # (0-0.7) k/uL Basophils # (0-0.2) k/uL Poikilocytosis PT (9.0-12.0) sec INR (<1.2) APTT (22.0-30.0) sec Sodium (137-145) mmol/L Potassium (3.5-5.1) mmol/L Chloride (98-107) mmol/L Carbon Dioxide (22-30) mmol/L Anion Gap mmol/L BUN (7-17) mg/dL Creatinine (0.52-1.04) mg/dL Est GFR (CKD-EPI)AfAm (>60 ml/min/1.73 sqM) Est GFR (CKD-EPI)NonAf (>60 ml/min/1.73 sqM) Glucose (74-99) mg/dL Plasma Lactic Acid Mehul 1.4 (0.7-2.0) mmol/L Calcium (8.4-10.2) mg/dL Total Bilirubin (0.2-1.3) mg/dL AST (14-36) U/L ALT (4-34) U/L Alkaline Phosphatase (38-126) U/L Troponin I 0.026 (0.000-0.034) ng/mL NT-Pro-B Natriuret Pep 3840 pg/mL Total Protein (6.3-8.2) g/dL Albumin (3.5-5.0) g/dL - EKG Data -: EKG Interpreted by Me EKG shows normal: sinus rhythm Rate: normal EKG Comments: Ventricular rate 60 bpm, QRS duration 166 ms, QTC 516 ms, PRT axes */236/61, ventricular paced rhythm, abnormal ECG. - Radiology Data Radiology results: report reviewed, image reviewed Chest x-ray: Cardiomegaly with small to tiny bilateral pleural effusions. Mild central vascular congestion correlate for CHF exacerbation. In addition there is bilateral lower lung acute infiltrate and/or atelectasis present. Cannot exclude underlying infection. Right lung findings more prominent from prior. Disposition Clinical Impression: Congestive heart failure, COPD (chronic obstructive pulmonary disease) Disposition: ADMITTED IP TO THIS HOSP Condition: Stable Is patient prescribed a controlled substance at d/c from ED?: No Referrals: Jerome Monroe MD [Primary Care Provider] - 1-2 days Time of Disposition: 08:25 Decision Time: 08:25
[2021-07-18] MEDS ORDERED: NALOXONE 0.4 MG/ML 1 ML VIAL IV PRN (08:20)
[2021-07-18] MEDS ORDERED: SODIUM CHLORIDE 0.9% 1,000 ML IV SCH (08:30)
--- NOTE | 2021-07-18 10:00 | US ---
EXAMINATION TYPE: US venous doppler duplex LE DATE OF EXAM: 07/18/2021 9:39 AM COMPARISON: NONE CLINICAL HISTORY: dvt. Swollen legs SIDE PERFORMED: Bilateral TECHNIQUE: The lower extremity deep venous system is examined utilizing real time linear array sonog josie with graded compression, doppler sonography and color-flow sonography. VESSELS IMAGED: Common Femoral Vein Deep Femoral Vein Greater Saphenous Vein * Femoral Vein Popliteal Vein Small Saphenous Vein * Proximal Calf Veins (* superficial vessels) Right Leg: Negative for DVT Left Leg: Negative for DVT IMPRESSION: Grayscale, color doppler, spectral doppler imaging performed of the deep veins of the lo wer extremities. There is normal flow, compressibility, vascular waveforms.
[2021-07-18] MEDS: POTASSIUM CHLORIDE 20 MEQ in WATER FOR INJECTION 1 100ML.BAG IVPB SCH ×2 (10:59→12:52)
[2021-07-18] MEDS ORDERED: IPRATROPIUM-ALBUTEROL 3 ML NEB INHALATION PRN (11:53)
[2021-07-18] MEDS ORDERED: polyethylene glycoL 3350 17 GM POWD.PACK PO PRN (11:53)
[2021-07-18] MEDS ORDERED: traMADol 50 MG TAB PO PRN (11:53)
[2021-07-18] MEDS ORDERED: FUROSEMIDE 40 MG TAB PO SCH (12:00)
[2021-07-18] MEDS ORDERED: metOLazone 2.5 MG TAB PO SCH (12:00)
[2021-07-18] MEDS ORDERED: MAG HYDROX/AL HYDROX/SIMETH 30 ML CUP PO PRN (12:55)
[2021-07-18] MEDS ORDERED: LACTULOSE 20 GM/30 ML CUP PO PRN (12:55)
[2021-07-18] MEDS ORDERED: ACETAMINOPHEN TAB 325 MG TAB PO PRN (12:55)
[2021-07-18] MEDS ORDERED: ONDANSETRON 4 MG/2 ML VIAL IVP PRN (12:55)
[2021-07-18] MEDS ORDERED: CALCIUM CARBONATE 500 MG CHEWABLE PO PRN (12:55)
[2021-07-18] MEDS: FUROSEMIDE 10 MG/ML 10 ML VIAL IV SCH ×3 (13:15→23:17)
[2021-07-18] MEDS: FAMOTIDINE 20 MG TAB PO SCH (13:16)
[2021-07-18] MEDS: METOPROLOL TARTRATE 25 MG TAB PO SCH ×3 (13:16→23:15)
[2021-07-18] MEDS: ASPIRIN 81 MG PO SCH ×2 (13:16→13:17)
[2021-07-18] MEDS: APIXABAN 2.5 MG TABLET PO SCH ×2 (13:16→22:56)
[2021-07-18] MEDS: MULTIVITAMINS, THERA 1 EACH TAB PO SCH (13:16)
[2021-07-18] MEDS: LEVOTHYROXINE 125 MCG TAB PO SCH (13:17)
[2021-07-18] MEDS: POTASSIUM CHLORIDE ER 10 MEQ TAB.ER.PRT PO SCH ×3 (13:17→23:15)
[2021-07-18] MEDS: PYRIDOXINE 50 MG TAB PO SCH (13:17)
[2021-07-18] MEDS: IPRATROPIUM-ALBUTEROL 3 ML NEB INHALATION SCH ×3 (15:04→20:27)
[2021-07-18] MEDS: BUDESONIDE 0.5 MG/2 ML NEBU INHALATION SCH ×2 (15:04→20:27)
--- NOTE | 2021-07-18 19:31 | P.HPIM ---
History of Present Illness H&P Date: 07/18/21 Chief Complaint: Short of breath History of presenting complaint: This is a very pleasant 86-year-old patient of Dr. Jerome Monroe. Chronic stable medical conditions include COPD, hypertension, hyperlipidemia, sleep apnea, hypothyroid. Permanent pacemaker, CKD Does use CPAP. Currently at [facility] on the [facility] for inpatient rehab under . Patient was sent in for low oxygen. Patient gets easily short of breath. Is able to walk a few steps. Has a cough. Has not been awaiting a CPAP. He was noted to be confused at the [facility]. She had also taken her CPAP off a sleepy and pulse ox was in the high 70s. His oxygen supplementation and cognition and communication both improved. Patient found to be in a paced rhythm. Denies any fever and chills. No sputum. Review of systems: GEN.: Tired EYES: None HEENT: None NECK: None RESPIRATORY: None CARDIOVASCULAR: None GASTROINTESTINAL: None GENITOURINARY: None MUSCULOSKELETAL: Joint pains LYMPHATICS: None HEMATOLOGICAL: None PSYCHIATRY: As above NEUROLOGICAL: Uses a walker Past medical history to include: COPD, hypertension, hyperlipidemia, obstructive sleep apnea uses CPAP, hypothyroid, permanent pacemaker for heart block, CK D, bleeding peptic ulcer disease Social history: Patient stopped smoking in 1974. Currently at [facility] on the [facility]. Family history: Reviewed, noncontributory to presentation Physical examination: VITAL SIGNS: 97.7, 60, 16, 129/67, 100% on 2 L GENERAL: BMI 42.9, reclining in bed, tired, short of breath EYES: Pupils equal. Conjunctiva normal. HEENT: External appearance of nose and ears normal, oral cavity grossly normal. NECK: Short thick neck unable to assess JVD, no mass palpable. HEART: First and second heart sounds are normal; mild edema. LUNGS: Respiratory rate increased; decreased breath sounds. Basal fine crackles ABDOMEN: Soft, nontender, liver spleen not palpable, no masses palpable. PSYCH: Tired but able to answer questions MUSCULAR skeletal: Evidence of OA NEUROLOGICAL: Cranial nerves grossly intact; no facial asymmetry, power and sensation grossly intact. LYMPHATICS: No lymph nodes palpable in the axilla and neck INVESTIGATIONS, reviewed in the clinical context: White count 8.8 hemoglobin 12.8 platelets 199 d-dimer 0.26 sodium 138 potassium 2.5 bicarb 14. 67 creatinine 2.01 Troponin I 0.026 proBNP 3840 Coronavirus [PCR]: Not detected EKG tracing personally reviewed by me-ventricular paced rhythm: Fluid in the fissure, pulmonary edema, infiltrate. Right greater than left Doppler ultrasound: Right/left leg: Both negative for DVT Previous labs: June 21: BUN 87 creatinine 2.45 Assessment and plan: -Acute congestive heart failure exacerbation. EF not known IV Lasix 80 mg q8. Consult cardiology. 2-D echocardiogram. -Probable pneumonia suspected gram-negative organism IV ceftriaxone 1 g every 12. 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 Pulmicort 0.5 mg twice a day -Hyperlipidemia Lipitor 20 mg daily at bedtime -Essential hypertension Lopressor 25 mg twice a day -Obstructive sleep apnea uses CPAP -Hypothyroid 125 g Synthroid daily -Primary osteoarthritis Pain medications as needed -Chronic gait dysfunction, uses a walker at baseline Fall precautions IV Lasix. IV ceftriaxone. 2-D echocardiogram. Resume home medications. Check labs. Oxygen supplementation. Consult cardiology, nephrology. Given the complexity and severity of patient's condition expect the patient to be in the hospital at least for 2 overnights Past Medical History Past Medical History: Cancer, COPD, Hyperlipidemia, Hypertension, Sleep Apnea/CPAP/BIPAP, Thyroid Disorder Additional Past Medical History / Comment(s): HX COLON AND UTERINE CANCER. USES CPAP-INSTRUCTED TO BRING AND LEAVE IN CAR IN CASE OF ADMISSION. PAST HX BLEEDING ULCER History of Any Multi-Drug Resistant Organisms: None Reported Past Surgical History: Appendectomy, Bowel Resection, Cholecystectomy, Hernia Repair, Hysterectomy, Joint Replacement, Orthopedic Surgery, Tonsillectomy Additional Past Surgical History / Comment(s): COLONOSCOPY AND EGD. LT SHOULDER REPLACEMENT. BILAT TKA. HERNIA REPAIR X 4. OVARIAN CYSTECTOMY X 2. CTR-BILAT Past Anesthesia/Blood Transfusion Reactions: No Reported Reaction Past Psychological History: Anxiety Smoking Status: Former smoker Past Alcohol Use History: None Reported Past Drug Use History: None Reported - Past Family History Mother Family Medical History: No Reported History Father Family Medical History: No Reported History Additional Family Medical History / Comment(s): Pt states father was healthy. Medications and Allergies Home Medications Medication Instructions Recorded Confirmed Type Aspirin EC [Ecotrin Low Dose] 81 mg PO DAILY 02/13/17 07/18/21 History Calcium Citrate/Vitamin D3 3 tab PO HS 02/13/17 07/18/21 History [Calcitrate + Vit D Caplet] Ipratropium-Albuterol Nebulize 3 ml INHALATION RT-Q4H 02/13/17 07/18/21 History [Duoneb 0.5 mg-3 mg/3 ml Soln] Levothyroxine Sodium [Synthroid] 125 mcg PO DAILY@0600 02/13/17 07/18/21 History Pyridoxine HCl (Vitamin B6) 100 mg PO DAILY 02/13/17 07/18/21 History [Vitamin B-6] Budesonide [Pulmicort] 0.5 mg INHALATION RT-BID 02/22/20 07/18/21 History Montelukast [Singulair] 10 mg PO HS 02/22/20 07/18/21 History Multivitamins, Thera [Multivitamin 1 tab PO DAILY 02/22/20 07/18/21 History (formulary)] [place]-3 Fatty Acids/Fish Oil [Fish 1 cap PO DAILY 02/22/20 07/18/21 History Oil 1,000 mg Softgel] Ascorbic Acid [Vitamin C] 1,000 mg PO DAILY tab 02/24/20 07/18/21 Rx Atorvastatin [Lipitor] 20 mg PO HS tab 02/24/20 07/18/21 Rx Apixaban [Eliquis] 2.5 mg PO BID 06/19/21 07/18/21 History Famotidine [Pepcid] 10 mg PO DAILY 06/19/21 07/18/21 History Ipratropium-Albuterol Nebulize 3 ml INHALATION RT-Q4H PRN 06/19/21 07/18/21 History [Duoneb 0.5 mg-3 mg/3 ml Soln] Polyethylene Glycol 3350 [Miralax] 17 gm PO DAILY PRN 06/19/21 07/18/21 History Potassium Chloride ER [K-Dur 10] 10 meq PO BID 06/19/21 07/18/21 History ALPRAZolam [Xanax] 0.25 mg PO Q8H PRN #12 tab 06/21/21 07/18/21 Rx Metoprolol Tartrate [Lopressor] 25 mg PO BID tab 06/21/21 07/18/21 Rx traMADol HCL [Ultram] 50 mg PO Q4H PRN #18 tab 06/21/21 07/18/21 Rx Bisacodyl 10 mg PO DAILY 07/18/21 07/18/21 History Furosemide [Lasix] 40 mg PO BID@0600,1200 07/18/21 07/18/21 History metOLazone 2.5 mg PO TUTHSA 07/18/21 07/18/21 History Allergies Allergy/AdvReac Type Severity Reaction Status Date / Time No Known Allergies Allergy Verified 07/18/21 07:31 Physical Exam Vitals: Vital Signs Temp Pulse Resp BP Pulse Ox 07/18/21 11:03 97.7 F 68 18 154/73 98 07/18/21 08:16 60 17 119/68 98 07/18/21 07:26 17 97 07/18/21 06:59 22 07/18/21 06:28 97.7 F 60 16 129/67 100 Intake and Output 07/17/21 07/18/21 07/18/21 22:59 06:59 14:59 Other: Weight 113.398 kg Results CBC & Chem 7: 07/18/21 06:50 07/18/21 06:50 Labs: Abnormal Lab Results - Last 24 Hours (Table) 07/18/21 07/18/21 Range/Units 06:50 06:50 RDW 15.8 H (11.5-15.5) % Potassium 2.5 L* (3.5-5.1) mmol/L Chloride 87 L (98-107) mmol/L Carbon Dioxide 40 H (22-30) mmol/L BUN 67 H (7-17) mg/dL Creatinine 2.01 H (0.52-1.04) mg/dL Glucose 132 H (74-99) mg/dL Calcium 11.5 H (8.4-10.2) mg/dL AST 46 H (14-36) U/L Albumin 3.3 L (3.5-5.0) g/dL
[2021-07-18] MEDS: ATORVASTATIN 20 MG TAB PO SCH ×2 (21:48→23:14)
[2021-07-18] MEDS: POTASSIUM CHLORIDE ER 20 MEQ TAB.ER PO SCH ×3 (21:48→23:15)
[2021-07-18] MEDS: MONTELUKAST 10 MG TAB PO SCH ×2 (21:48→23:15)
[2021-07-18] MEDS: ALPRAZolam 0.25 MG TAB PO PRN (21:49)
[2021-07-18] MEDS: CALCIUM CARB-VIT D 500 MG-5 MCG TAB PO SCH ×2 (21:49→23:15)
[2021-07-18] MEDS: MELATONIN 3 MG TABLET PO PRN (21:49)
[2021-07-18] MEDS ORDERED: Potassium Replacement Protocol 1 EACH MISC MISCELLANE PRN (23:05)
[2021-07-18] MEDS: POTASSIUM CHLORIDE 10 MEQ in WATER FOR INJECTION 1 100ML.BAG IVPB SCH (23:16)
[2021-07-19] MEDS: POTASSIUM CHLORIDE 10 MEQ in WATER FOR INJECTION 1 100ML.BAG IVPB SCH ×5 (00:50→07:26)
[2021-07-19] MEDS: IPRATROPIUM-ALBUTEROL 3 ML NEB INHALATION SCH ×6 (01:16→19:41)
[2021-07-19] MEDS: LEVOTHYROXINE 125 MCG TAB PO SCH (04:52)
[2021-07-19] MEDS: POTASSIUM CHLORIDE ER 20 MEQ TAB.ER PO SCH ×7 (06:05→17:05)
[2021-07-19 06:52] LABS: African American GFR (CKD) 30 (>60 ml/min/1.73 sqM); Blood Urea Nitrogen 60 mg/dL (7-17); Calcium 11.1 mg/dL (8.4-10.2); Chloride 86 mmol/L (98-107); Glucose 134 mg/dL (74-99); Non-African American GFR(CKD) 26 (>60 ml/min/1.73 sqM); Potassium 2.9 mmol/L (3.5-5.1); Sodium 141 mmol/L (137-145)
[2021-07-19 06:59] LABS: Anion Gap 11 mmol/L
[2021-07-19 07:01] LABS: Carbon Dioxide 44 mmol/L (22-30)
[2021-07-19] MEDS: BUDESONIDE 0.5 MG/2 ML NEBU INHALATION SCH ×2 (07:20→19:41)
[2021-07-19] MEDS: FUROSEMIDE 10 MG/ML 10 ML VIAL IV SCH (08:52)
[2021-07-19] MEDS: POTASSIUM CHLORIDE ER 10 MEQ TAB.ER.PRT PO SCH ×3 (08:53→19:59)
[2021-07-19] MEDS: MULTIVITAMINS, THERA 1 EACH TAB PO SCH (08:53)
[2021-07-19] MEDS: METOPROLOL TARTRATE 25 MG TAB PO SCH ×2 (08:53→19:58)
[2021-07-19] MEDS: FAMOTIDINE 20 MG TAB PO SCH (08:54)
[2021-07-19] MEDS: ASCORBIC ACID 500 MG TAB PO SCH (08:54)
[2021-07-19] MEDS: APIXABAN 2.5 MG TABLET PO SCH ×2 (08:54→19:58)
[2021-07-19] MEDS: PYRIDOXINE 50 MG TAB PO SCH (08:55)
[2021-07-19] MEDS: bisacodyL 5 MG TABLET.DR PO SCH (08:55)
[2021-07-19] MEDS ORDERED: Potassium Replacement Protocol 1 EACH MISC MISCELLANE PRN (09:05)
--- NOTE | 2021-07-19 10:06 | P.CRDCN ---
History of Present Illness History of present illness: This is a pleasant 86-year-old female past medical history significant for paroxysmal atrial fibrillation diagnosed 11/2020 (on eliquis), obstructive sleep apnea with CPAP, hypertension, aortic stenosis status post TAVR at [facility] in 2016, nonobstructive coronary disease by cardiac cath in 2016, high degree AV block status post dual-chamber pacemaker insertion on 02/2020, hyp ertension, dyslipidemia, former smoker. She follows in the office with Dr. Calderon. We have been asked to see in consultation for congestive heart failure. Patient presents to the emergency department with low oxygen at [facility]. She was also noted to be easily short of breath and confused per staff. Patient is a poor historian and is confused. At [facility] she had also taken off her CPAP and her SPO2 was noted to be in the 70s. She was started on IV Lasix 80mg Q8hr. Labs on admission revealed, hypokalemia with K 2.5. Difficult to assess output per nursing due to incontinence . She was recently admitted to [facility] in 06/2021 for BRENDA. Prior to that she was at [facility] for about 7 days with volume overload and was IV diuresed. She then was discharged to [facility] for Rehab. She had labs drawn as an outpatient was found to have her serum creatinine of 3.1 and was told to present to the emergency department. Her diuretics were held and she started on IV fluids. Nephrology consulted stated it was associated with recent diuresis as well as hypotension and hypoperfusion in the setting use of Luis inhibitors. Patient followed up with Dr. Calderon on 07/08/21 and was noted to have increased weight and lower extremity edema. Patient was started on metolazone 2.5mg every other day. DIAGNOSTICS EKG V paced rhythm Chest x-ray reveals cardiomegaly with small to tiny bilateral pleural effusions. Mild central vascular congestion. Ultrasound Dopplers negative for DVT bilaterally Laboratory reviewed, sodium 141, potassium 2.9, BUN 60, serum creatinine 1.76, troponin negative 1, proBNP 3840, [place] 19 PCR negative, d-dimer negative, CBC unremarkable. Current cardiac medications include Lasix 40 mg BID, Eliquis 2.5 mg twice a day, metoprolol tartrate 25 mg BID, metolazone 2.5 mg every other day, atorvastatin 20 mg nightly, aspirin 81 mg daily Echo 04/18/2020 revealed EF 55%, grade 2 diastolic dysfunction, transcatheter AV prosthesis with normal function. No prosthetic valvular regurgitation. Mild to moderate MR, mild TR, moderately increased PAS PE, moderate pulmonic regurgitation. REVIEW OF SYSTEMS At the time of my exam: CONSTITUTIONAL: Denies fever or chills. CARDIOVASCULAR: +shortness of breath +orthopnea Denies chest pain, PND or pal pitations. RESPIRATORY: Denies cough. GASTROINTESTINAL: Denies abdominal pain, diarrhea, constipation, nausea or vomiting. MUSCULOSKELETAL: Denies myalgias. NEUROLOGIC: Denies numbness, tingling, headacbe or weakness. ENDOCRINE: Denies fatigue, weight change, polydipsia or polyurina. GENITOURINARY: Denies burning, hematuria or urgency with micturation. HEMATOLOGIC: Denies history of anemia or bleeding. PHYSICAL EXAMINATION Blood pressure 143/75, heart rate 88, afebrile, saturations greater than 92% on 2 L nasal cannula CONSTITUTIONAL: No apparent distress. HEENT: Head is normocephalic. Pupils are equal, round. Sclerae anicteric. Mucous membranes of the mouth are moist. No JVD. No carotid bruit. CHEST EXAMINATION: Lungs are diminished with fine crackles in bases bilaterally to auscultation. No chest wall tenderness is noted on palpation or with deep breathing. HEART EXAMINATION: Regular rate and rhythm. S1, S2 heard. Systolic ejection murmur noted ABDOMEN: Soft, nontender. Positive bowel sounds. EXTREMITIES: 1+ bilateral lower extremity edema and no calf tenderness. NEUROLOGIC EXAMINATION: Patient is awake, alert and oriented x 1-2 ASSESSMENT Acute on chronic diastolic heart failure Objective sleep apnea Hypertension Aortic stenosis status post TAVR in 2017 Nonobstructive coronary artery disease History of high degree AV block status post dual-chamber pacemaker insertion 02/2020 History of hypertension Chronic kidney disease Dyslipidemia Former smoker Hypercalcemia Morbid Obesity BMI 47 Paroxysmal atrial fibrillation on Eliquis Hypokalemia PLAN Decrease IV Lasix to 40mg BID Discontinue metolazone Replace potassium per protocol Obtain 2D echocardiogram Monitor I/Os, daily weights. Patient is incontinent. Monitor renal function and electrolytes Continue Eliquis 2.5mg BID (age and kidney function), atorvastatin, metoprolol tartrate Further recommendations based on clinical course Nurse Practitioner note has been reviewed, I agree with a documented findings and plan of care. Patient was seen and examined. Past Medical History Past Medical History: Cancer, COPD, Hyperlipidemia, Hypertension, Sleep Apnea/CPAP/BIPAP, Thyroid Disorder Additional Past Medical History / Comment(s): HX COLON AND UTERINE CANCER. USES CPAP-INSTRUCTED TO BRING AND LEAVE IN CAR IN CASE OF ADMISSION. PAST HX BLEEDING ULCER History of Any Multi-Drug Resistant Organisms: None Reported Past Surgical History: Appendectomy, Bowel Resection, Cholecystectomy, Hernia Repair, Hysterectomy, Joint Replacement, Orthopedic Surgery, Tonsillectomy Additional Past Surgical History / Comment(s): COLONOSCOPY AND EGD. LT SHOULDER REPLACEMENT. BILAT TKA. HERNIA REPAIR X 4. OVARIAN CYSTECTOMY X 2. CTR-BILAT Past Anesthesia/Blood Transfusion Reactions: No Reported Reaction Past Psychological History: Anxiety Smoking Status: Former smoker Past Alcohol Use History: None Reported Past Drug Use History: None Reported - Past Family History Mother Family Medical History: No Reported History Additional Family Medical History / Comment(s): Pt states mother was healthy Father Family Medical History: No Reported History Additional Family Medical History / Comment(s): Pt states father was healthy. Medications and Allergies Home Medications Medication Instructions Recorded Confirmed Type Aspirin EC [Ecotrin Low Dose] 81 mg PO DAILY 02/13/17 07/18/21 History Calcium Citrate/Vitamin D3 3 tab PO HS 02/13/17 07/18/21 History [Calcitrate + Vit D Caplet] Ipratropium-Albuterol Nebulize 3 ml INHALATION RT-Q4H 02/13/17 07/18/21 History [Duoneb 0.5 mg-3 mg/3 ml Soln] Levothyroxine Sodium [Synthroid] 125 mcg PO DAILY@0600 02/13/17 07/18/21 History Pyridoxine HCl (Vitamin B6) 100 mg PO DAILY 02/13/17 07/18/21 History [Vitamin B-6] Budesonide [Pulmicort] 0.5 mg INHALATION RT-BID 02/22/20 07/18/21 History Montelukast [Singulair] 10 mg PO HS 02/22/20 07/18/21 History Multivitamins, Thera [Multivitamin 1 tab PO DAILY 02/22/20 07/18/21 History (formulary)] [place]-3 Fatty Acids/Fish Oil [Fish 1 cap PO DAILY 02/22/20 07/18/21 History Oil 1,000 mg Softgel] Ascorbic Acid [Vitamin C] 1,000 mg PO DAILY tab 02/24/20 07/18/21 Rx Atorvastatin [Lipitor] 20 mg PO HS tab 02/24/20 07/18/21 Rx Apixaban [Eliquis] 2.5 mg PO BID 06/19/21 07/18/21 History Famotidine [Pepcid] 10 mg PO DAILY 06/19/21 07/18/21 History Ipratropium-Albuterol Nebulize 3 ml INHALATION RT-Q4H PRN 06/19/21 07/18/21 History [Duoneb 0.5 mg-3 mg/3 ml Soln] Polyethylene Glycol 3350 [Miralax] 17 gm PO DAILY PRN 06/19/21 07/18/21 History Potassium Chloride ER [K-Dur 10] 10 meq PO BID 06/19/21 07/18/21 History ALPRAZolam [Xanax] 0.25 mg PO Q8H PRN #12 tab 06/21/21 07/18/21 Rx Metoprolol Tartrate [Lopressor] 25 mg PO BID tab 06/21/21 07/18/21 Rx traMADol HCL [Ultram] 50 mg PO Q4H PRN #18 tab 06/21/21 07/18/21 Rx Bisacodyl 10 mg PO DAILY 07/18/21 07/18/21 History Furosemide [Lasix] 40 mg PO BID@0600,1200 07/18/21 07/18/21 History metOLazone 2.5 mg PO TUTHSA 07/18/21 07/18/21 History Allergies Allergy/AdvReac Type Severity Reaction Status Date / Time No Known Allergies Allergy Verified 07/18/21 07:31 Physical Exam Vitals: Vital Signs Temp Pulse Pulse Resp BP BP Pulse Ox 07/19/21 04:50 97.8 F 60 22 156/64 99 07/18/21 21:00 97.8 F 61 20 157/71 92 L 07/18/21 20:28 84 07/18/21 16:10 82 07/18/21 16:03 60 147/65 07/18/21 15:56 80 07/18/21 15:00 16 07/18/21 13:27 97.7 F 56 L 20 159/92 97 07/18/21 11:03 97.7 F 68 18 154/73 98 07/18/21 08:16 60 17 119/68 98 07/18/21 07:26 17 97 Intake and Output 07/18/21 07/19/21 07/19/21 22:59 06:59 14:59 Intake Total 375 Output Total 400 Balance -25 Intake: Intake, IV Titration 375 Amount Sodium Chloride 0.9% 1, 375 000 ml @ 75 mls/hr IV . [id number] [facility] Rx#:[id number] Output: Urine 400 Other: Voiding Method Incontinent # Voids 6 Results 07/18/21 06:50 07/19/21 05:09 Cardiac Enzymes 07/18/21 07/18/21 Range/Units 06:50 06:50 AST 46 H (14-36) U/L Troponin I 0.026 (0.000-0.034) ng/mL Comprehensive Metabolic Panel 07/18/21 07/18/21 07/19/21 Range/Units 06:50 18:48 05:09 Sodium 138 141 (137-145) mmol/L Potassium 2.5 L* 2.7 L* 2.9 L (3.5-5.1) mmol/L Chloride 87 L 86 L (98-107) mmol/L Carbon Dioxide 40 H 44 H* (22-30) mmol/L BUN 67 H 60 H (7-17) mg/dL Creatinine 2.01 H 1.76 H (0.52-1.04) mg/dL Glucose 132 H 134 H (74-99) mg/dL Calcium 11.5 H 11.1 H (8.4-10.2) mg/dL AST 46 H (14-36) U/L ALT 22 (4-34) U/L Alkaline Phosphatase 58 (38-126) U/L Total Protein 6.4 (6.3-8.2) g/dL Albumin 3.3 L (3.5-5.0) g/dL Current Medications Generic Name Dose Route Start Last Admin Trade Name Freq PRN Reason Stop Dose Admin Acetaminophen 650 mg 07/18/21 12:55 Acetaminophen Tab 325 Mg Tab PO Q6HR PRN Mild Pain or Fever > 100.5 Al Hydroxide/Mg Hydroxide 15 ml 07/18/21 12:55 Mag Hydrox/Al Hydrox/Simeth 30 Ml Cup PO Q6HR PRN Indigestion Albuterol/Ipratropium 3 ml 07/18/21 11:53 Ipratropium-Albuterol 3 Ml Neb INHALATION RT-Q4H PRN Shortness Of Breath Or Wheezing Albuterol/Ipratropium 3 ml 07/18/21 12:00 07/19/21 05:49 Ipratropium-Albuterol 3 Ml Neb INHALATION Not Given RT-Q4H BRONSON Alprazolam 0.25 mg 07/18/21 11:53 Alprazolam 0.25 Mg Tab PO Q8H PRN INCREASED ANXIETY Apixaban 2.5 mg 07/18/21 12:00 07/18/21 22:56 Apixaban 2.5 Mg Tablet PO 2.5 mg BID BRONSON Administration Protocol Ascorbic Acid 1,000 mg 07/19/21 09:00 Ascorbic Acid 500 Mg Tab PO DAILY BRONSON Aspirin 81 mg 07/18/21 12:00 07/18/21 13:17 Aspirin 81 Mg PO 81 mg DAILY BRONSON Administration Atorvastatin Calcium 20 mg 07/18/21 21:00 07/18/21 23:14 Atorvastatin 20 Mg Tab PO Not Given HS [facility] Bisacodyl 10 mg 07/19/21 09:00 Bisacodyl 5 Mg Tablet.Dr PO DAILY BRONSON Budesonide 0.5 mg 07/18/21 11:53 07/18/21 20:27 Budesonide 0.5 Mg/2 Ml Nebu INHALATION 0.5 mg RT-BID BRONSON Administration Calcium Carbonate 3 each 07/18/21 21:00 07/18/21 23:15 Calcium Carb-Vit D 500 Mg-5 Mcg Tab PO Not Given HS BRONSON Calcium Carbonate/Glycine 1,000 mg 07/18/21 12:55 Calcium Carbonate 500 Mg Chewable PO Q4HR PRN Dyspepsia Famotidine 10 mg 07/18/21 12:00 07/18/21 13:16 Famotidine 20 Mg Tab PO 10 mg DAILY BRONSON Administration Furosemide 80 mg 07/18/21 12:52 07/18/21 23:17 Furosemide 10 Mg/Ml 10 Ml Vial IV 80 mg Q8HR BRONSON Administration Ceftriaxone Sodium 1 gm/ 50 mls @ 100 mls/hr 07/18/21 21:00 07/18/21 21:58 Sodium Chloride IVPB 100 mls/hr Q12HR BRONSON Administration Lactulose 20 gm 07/18/21 12:55 Lactulose 20 Gm/30 Ml Cup PO DAILY PRN Constipation Levothyroxine Sodium 125 mcg 07/18/21 06:00 07/19/21 04:52 Levothyroxine 125 Mcg Tab PO Not Given DAILY@0600 BRONSON Melatonin 3 mg 07/18/21 12:55 Melatonin 3 Mg Tablet PO HS PRN Insomnia Metolazone 2.5 mg 07/18/21 12:00 07/18/21 13:17 Metolazone 2.5 Mg Tab PO 2.5 mg TUTHSA BRONSON Administration Metoprolol Tartrate 25 mg 07/18/21 12:00 07/18/21 23:15 Metoprolol Tartrate 25 Mg Tab PO Not Given BID [facility] Miscellaneous Information 1 each 07/18/21 23:05 Potassium Replacement Protocol 1 Each Misc MISCELLANE DAILY PRN Per Protocol Protocol Montelukast Sodium 10 mg 07/18/21 21:00 07/18/21 23:15 Montelukast 10 Mg Tab PO Not Given HS [facility] Multivitamins 1 each 07/18/21 12:00 07/18/21 13:16 Multivitamins, Thera 1 Each Tab PO 1 each DAILY BRONSON Administration Naloxone HCl 0.2 mg 07/18/21 08:20 Naloxone 0.4 Mg/Ml 1 Ml Vial IV Q2M PRN Opioid Reversal Ondansetron HCl 4 mg 07/18/21 12:55 07/19/21 03:14 Ondansetron 4 Mg/2 Ml Vial IVP 4 mg Q8HR PRN Administration Nausea And Vomiting Polyethylene Glycol 17 gm 07/18/21 11:53 Polyethylene Glycol 3350 17 Gm Powd.Pack PO DAILY PRN Constipation Potassium Chloride 10 meq 07/18/21 12:00 07/18/21 23:15 Potassium Chloride Er 10 Meq Tab.Er.Prt PO Not Given BID [facility] Pyridoxine HCl 100 mg 07/18/21 12:00 07/18/21 13:17 Pyridoxine 50 Mg Tab PO 100 mg DAILY BRONSON Administration Tramadol HCl 50 mg 07/18/21 11:53 Tramadol 50 Mg Tab PO Q4H PRN Moderate to Severe Pain Intake and Output 07/18/21 07/19/21 07/19/21 22:59 06:59 14:59 Intake Total 375 Output Total 400 Balance -25 Intake: Intake, IV Titration 375 Amount Sodium Chloride 0.9% 1, 375 000 ml @ 75 mls/hr IV . [id number] [facility] Rx#:[id number] Output: Urine 400 Other: Voiding Method Incontinent # Voids 6 07/18/21 06:50 07/19/21 05:09
[2021-07-19 10:44] VITALS: BMI 42.9
--- NOTE | 2021-07-19 15:46 | P.PN ---
Progress Note - Text Progress Note Date: 07/19/21 Chief Complaint: Short of breath History of presenting complaint: This is a very pleasant 86-year-old patient of Dr. Jerome Monroe. Chronic stable medical conditions include COPD, hypertension, hyperlipidemia, sleep apnea, hypothyroid. Permanent pacemaker, CKD Does use CPAP. Currently at [facility] on the [facility] for inpatient rehab under . Patient was sent in for low oxygen. Patient gets easily short of breath. Is able to walk a few steps. Has a cough. Had not used her CPAP overnight. was noted to be confused at the [facility]. She had also taken her CPAP off a sleepy and pulse ox was in the high 70s. His oxygen supplementation and cognition and com munication both improved. Patient found to be in a paced rhythm. Denies any fever and chills. No sputum. July 19: Patient refused a CPAP last night. Was a bit confused. Breathing better this morning. Up in a chair. More coherent. Discussed with the patient. Will use a CPAP. Also discussed with respiratory therapist. Severe hypokalemia. Last night patient had refused oral potassium. Supplement again today. Review of systems: Was done for constitutional, cardiovascular, GI, pulmonary. relevant finding as above Active Medications Acetaminophen (Acetaminophen Tab 325 Mg Tab) 650 mg PO Q6HR PRN PRN Reason: Mild Pain or Fever > 100.5 Al Hydroxide/Mg Hydroxide (Mag Hydrox/Al Hydrox/Simeth 30 Ml Cup) 15 ml PO Q6HR PRN PRN Reason: Indigestion Albuterol/Ipratropium (Ipratropium-Albuterol 3 Ml Neb) 3 ml INHALATION RT-Q4H PRN PRN Reason: Shortness Of Breath Or Wheezing Albuterol/Ipratropium (Ipratropium-Albuterol 3 Ml Neb) 3 ml INHALATION RT-Q4H S Last Admin: 07/19/21 15:38 Dose: Not Given Documented by: Alprazolam (Alprazolam 0.25 Mg Tab) 0.25 mg PO Q8H PRN PRN Reason: INCREASED ANXIETY Apixaban (Apixaban 2.5 Mg Tablet) 2.5 mg PO BID [facility]; Protocol Last Admin: 07/19/21 08:54 Dose: 2.5 mg Documented by: Ascorbic Acid (Ascorbic Acid 500 Mg Tab) 1,000 mg PO DAILY [facility] Last Admin: 07/19/21 08:54 Dose: 1,000 mg Documented by: Aspirin (Aspirin 81 Mg) 81 mg PO DAILY [facility] Last Admin: 07/18/21 13:17 Dose: 81 mg Documented by: Atorvastatin Calcium (Atorvastatin 20 Mg Tab) 20 mg PO HS [facility] Last Admin: 07/18/21 23:14 Dose: Not Given Documented by: Bisacodyl (Bisacodyl 5 Mg Tablet.Dr) 10 mg PO DAILY [facility] Last Admin: 07/19/21 08:55 Dose: 10 mg Documented by: Budesonide (Budesonide 0.5 Mg/2 Ml Nebu) 0.5 mg INHALATION RT-BID [facility] Last Admin: 07/19/21 07:20 Dose: 0.5 mg Documented by: Calcium Carbonate (Calcium Carb-Vit D 500 Mg-5 Mcg Tab) 3 each PO HS [facility] Last Admin: 07/18/21 23:15 Dose: Not Given Documented by: Calcium Carbonate/Glycine (Calcium Carbonate 500 Mg Chewable) 1,000 mg PO Q4HR PRN PRN Reason: Dyspepsia Famotidine (Famotidine 20 Mg Tab) 10 mg PO DAILY [facility] Last Admin: 07/19/21 08:54 Dose: 10 mg Documented by: Furosemide (Furosemide 10 Mg/Ml 4 Ml Vial) 40 mg IV Q12H [facility] Ceftriaxone Sodium 1 gm/ (Sodium Chloride) 50 mls @ 100 mls/hr IVPB Q12HR [facility] Last Admin: 07/19/21 08:52 Dose: 100 mls/hr Documented by: Lactulose (Lactulose 20 Gm/30 Ml Cup) 20 gm PO DAILY PRN PRN Reason: Constipation Levothyroxine Sodium (Levothyroxine 125 Mcg Tab) 125 mcg PO DAILY@0600 [facility] Last Admin: 07/19/21 04:52 Dose: Not Given Documented by: Melatonin (Melatonin 3 Mg Tablet) 3 mg PO HS PRN PRN Reason: Insomnia Metoprolol Tartrate (Metoprolol Tartrate 25 Mg Tab) 25 mg PO BID [facility] Last Admin: 07/19/21 08:53 Dose: 25 mg Documented by: Miscellaneous Information (Potassium Replacement Protocol 1 Each Misc) 1 each MISCELLANE DAILY PRN; Protocol PRN Reason: Per Protocol Miscellaneous Information (Potassium Replacement Protocol 1 Each Misc) 1 each MISCELLANE DAILY PRN; Protocol PRN Reason: Per Protocol Montelukast Sodium (Montelukast 10 Mg Tab) 10 mg PO HS [facility] Last Admin: 07/18/21 23:15 Dose: Not Given Documented by: Multivitamins (Multivitamins, Thera 1 Each Tab) 1 each PO DAILY [facility] Last Admin: 07/19/21 08:53 Dose: 1 each Documented by: Naloxone HCl (Naloxone 0.4 Mg/Ml 1 Ml Vial) 0.2 mg IV Q2M PRN PRN Reason: Opioid Reversal Ondansetron HCl (Ondansetron 4 Mg/2 Ml Vial) 4 mg IVP Q8HR PRN PRN Reason: Nausea And Vomiting Last Admin: 07/19/21 03:14 Dose: 4 mg Documented by: Polyethylene Glycol (Polyethylene Glycol 3350 17 Gm Powd.Pack) 17 gm PO DAILY PRN PRN Reason: Constipation Potassium Chloride (Potassium Chloride Er 10 Meq Tab.Er.Prt) 10 meq PO BID [facility] Last Admin: 07/19/21 15:19 Dose: Not Given Documented by: Pyridoxine HCl (Pyridoxine 50 Mg Tab) 100 mg PO DAILY [facility] Last Admin: 07/19/21 08:55 Dose: 100 mg Documented by: Tramadol HCl (Tramadol 50 Mg Tab) 50 mg PO Q4H PRN PRN Reason: Moderate to Severe Pain Past medical history to include: COPD, hypertension, hyperlipidemia, obstructive sleep apnea uses CPAP, hypothyroid, permanent pacemaker for heart block, CK D, bleeding peptic ulcer disease Social history: Patient stopped smoking in 1974. Currently at [facility] on [facility]. Family history: Reviewed, noncontributory to presentation Physical examination: VITAL SIGNS: 98.1, 88, 21, 143 with 75, and a 6% on 2 L GENERAL: Sitting up in the chair, awake, tired and short of breath EYES: Pupils equal. Conjunctiva normal. HEENT: External appearance of nose and ears normal, oral cavity grossly normal. NECK: Short thick neck unable to assess JVD, no mass palpable. HEART: First and second heart sounds are normal; mild edema. LUNGS: Respiratory rate increased; decreased breath sounds. Basal fine crackles ABDOMEN: Soft, nontender, liver spleen not palpable, no masses palpable. PSYCH: Answering questions MUSCULAR skeletal: Evidence of OA INVESTIGATIONS, reviewed in the clinical context: July 19: Sodium 141 potassium 2.9 bicarb 44 BUN 60 creatinine 1.76 Pro-calcitonin 0.19 White count 8.8 hemoglobin 12.8 platelets 199 d-dimer 0.26 sodium 138 potassium 2.5 bicarb 14. 67 creatinine 2.01 Troponin I 0.026 proBNP 3840 Coronavirus [PCR]: Not detected EKG tracing personally reviewed by me-ventricular paced rhythm: Fluid in the fissure, pulmonary edema, infiltrate. Right greater than left Doppler ultrasound: Right/left leg: Both negative for DVT Previous labs: June 21: BUN 87 creatinine 2.45 Assessment and plan: -Acute congestive heart failure exacerbation. EF not known: Slow to respond IV Lasix 80 mg q8. Consult cardiology. 2-D echocardiogram. -pneumonia suspected gram-negative organism IV ceftriaxone 1 g every 12. -Acute hypoxic encephalopathy on presentation Patient counseled about importance of using her CPAP. -Chronic kidney disease stage III from nephrosclerosis with a baseline creatinine of 2.3 from March 2021 Follow renal function -Probable underlying A. 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 Pulmicort 0.5 mg twice a day -Hyperlipidemia Lipitor 20 mg daily at bedtime -Essential hypertension Lopressor 25 mg twice a day -Obstructive sleep apnea uses CPAP -Hypothyroid 125 g Synthroid daily -Primary osteoarthritis Pain medications as needed -Chronic gait dysfunction, uses a walker at baseline Fall precautions -Severe hypokalemia from diuresis and bronchodilators Replace potassium IV Lasix. IV ceftriaxone. CPAP. Follow labs. Replace potassium. Repeat labs
[2021-07-19] MEDS: FUROSEMIDE 10 MG/ML 4 ML VIAL IV SCH (17:05)
[2021-07-19] MEDS: ALPRAZolam 0.25 MG TAB PO PRN (19:18)
[2021-07-19] MEDS: ATORVASTATIN 20 MG TAB PO SCH (19:58)
[2021-07-19] MEDS: CALCIUM CARB-VIT D 500 MG-5 MCG TAB PO SCH (20:26)
[2021-07-19] MEDS: MONTELUKAST 10 MG TAB PO SCH (20:26)
[2021-07-19] MEDS: MELATONIN 3 MG TABLET PO PRN (22:36)
[2021-07-20] MEDS: IPRATROPIUM-ALBUTEROL 3 ML NEB INHALATION SCH ×7 (00:45→23:07)
[2021-07-20] MEDS: LEVOTHYROXINE 125 MCG TAB PO SCH (05:48)
[2021-07-20] MEDS: FUROSEMIDE 10 MG/ML 4 ML VIAL IV SCH (05:55)
[2021-07-20] MEDS: BUDESONIDE 0.5 MG/2 ML NEBU INHALATION SCH ×2 (08:00→19:10)
[2021-07-20 08:02] LABS: African American GFR (CKD) 17 (>60 ml/min/1.73 sqM); Anion Gap 11 mmol/L; Blood Urea Nitrogen 70 mg/dL (7-17); Carbon Dioxide 38 mmol/L (22-30); Chloride 90 mmol/L (98-107); Glucose 155 mg/dL (74-99); Magnesium 1.9 mg/dL (1.6-2.3); Non-African American GFR(CKD) 14 (>60 ml/min/1.73 sqM); Potassium 5.4 mmol/L (3.5-5.1); Sodium 139 mmol/L (137-145)
[2021-07-20] MEDS: POTASSIUM CHLORIDE ER 10 MEQ TAB.ER.PRT PO SCH (08:14)
[2021-07-20] MEDS: FAMOTIDINE 20 MG TAB PO SCH (09:59)
[2021-07-20] MEDS: ASPIRIN 81 MG PO SCH (09:59)
[2021-07-20] MEDS: APIXABAN 2.5 MG TABLET PO SCH ×2 (09:59→21:44)
[2021-07-20] MEDS: bisacodyL 5 MG TABLET.DR PO SCH (09:59)
[2021-07-20] MEDS: METOPROLOL TARTRATE 25 MG TAB PO SCH ×2 (10:00→21:44)
[2021-07-20] MEDS: ASCORBIC ACID 500 MG TAB PO SCH (10:00)
[2021-07-20] MEDS: MULTIVITAMINS, THERA 1 EACH TAB PO SCH (10:00)
[2021-07-20] MEDS: PYRIDOXINE 50 MG TAB PO SCH (10:00)
--- NOTE | 2021-07-20 14:32 | P.PN ---
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 She follows in the office with Dr. Calderon. We have been asked to see in consultation for congestive heart failure. Patient presents to the emergency department with low oxygen at [facility]. She was also noted to be easily short of breath and confused per staff. Patient is a poor historian and is confused. At [facility] she had also taken off her CPAP and her SPO2 was noted to be in the 70s. She was started on IV Lasix 80mg Q8hr. Labs on admission revealed, hypokalemia with K 2.5. Difficult to assess output per nursing due to incontinence . She was recently admitted to [facility] in 06/2021 for BRENDA. Prior to that she was at [facility] for about 7 days with volume overload and was IV diuresed. She then was discharged to [facility] for Rehab. She had labs drawn as an outpatient was found to have her serum creatinine of 3.1 and was told to p resent to the emergency department. Her diuretics were held and she started on IV fluids. Nephrology consulted stated it was associated with recent diuresis as well as hypotension and hypoperfusion in the setting use of Luis inhibitors. Patient followed up with Dr. Calderon on 07/08/21 and was noted to have increased weight and lower extremity edema. Patient was started on metolazone 2.5mg every other day. 07/20/2021 She was seen and examined resting comfortably in bed with head of bed down. Continues to have shortness of breath but feels this is better. Continues to have significant edema. Labs today showed potassium of 5.4 which is up from 2.9, BUN 70 creatinine 2.89. Her was no weight documented this morning. Patient remains incontinent and difficult to obtain accurate output. E chocardiogram was done yesterday however there are no results available at this time. Objective - Vital Signs Vital signs: Vital Signs Temp 97.4 F L 07/20/21 04:35 Pulse 71 07/20/21 10:00 Resp 20 07/20/21 04:35 BP 123/56 07/20/21 10:00 Pulse Ox 90 L 07/20/21 12:00 Intake & Output 07/19/21 07/20/21 07/20/21 18:59 06:59 18:59 Intake Total 300 Output Total 600 Balance -600 300 Weight 113.398 kg 113.39 kg Intake: Oral 300 Output: Urine 600 Other: Voiding Method Incontinent Incontinent Incontinent # Voids 1 2 1 # Bowel Movements 1 - Exam PHYSICAL EXAMINATION: HEENT: Head is atraumatic, normocephalic. Pupils equal, round. Neck is supple. There is no elevated jugular venous pressure. HEART EXAMINATION: Heart sounds regular, S1 and S2 normal. With a systolic murmur. CHEST EXAMINATION: Lungs are clear to auscultation and precussion. No chest wall tenderness is noted on palpation or with deep breathing. ABDOMEN: Soft, nontender. Bowel sounds are heard. No organomegaly noted. EXTREMITIES: 2+ peripheral pulses with evidence of 1-2+ peripheral edema and no calf tenderness noted. NEUROLOGIC patient is awake, drowsy and oriented x1-2. . - Labs CBC & Chem 7: 07/18/21 06:50 07/20/21 07:07 Labs: Abnormal Lab Results - Last 24 Hours (Table) 07/18/21 07/20/21 Range/Units 06:50 07:07 Potassium 5.4 H (3.5-5.1) mmol/L Chloride 90 L (98-107) mmol/L Carbon Dioxide 38 H (22-30) mmol/L BUN 70 H (7-17) mg/dL Creatinine 2.89 H (0.52-1.04) mg/dL Glucose 155 H (74-99) mg/dL Calcium 11.0 H (8.4-10.2) mg/dL Procalcitonin 0.19 H (0.02-0.09) ng/mL Assessment and Plan Assessment: Acute on chronic diastolic heart failure Objective sleep apnea Hypertension Aortic stenosis status post TAVR in 2017 Nonobstructive coronary artery disease History of high degree AV block status post dual-chamber pacemaker insertion 02/2020 History of hypertension Chronic kidney disease Dyslipidemia Former smoker Hypercalcemia Morbid Obesity BMI 47 Paroxysmal atrial fibrillation on Eliquis Hypokalemia Plan: From cardiology's perspective medications were reviewed reviewed and we will continue the same. Continue to monitor I's and O's, daily weights, renal function and electrolytes. We will contact echo department to obtain report of the echocardiogram done yesterday. The above dictated assessment and findings were discussed with signing physician. The impression and plan of care have been directed as dictated. Mariana Lindo, Nurse Practitioner, acting as scribe for signing physician.
--- NOTE | 2021-07-20 16:09 | P.PN ---
Progress Note - Text Progress Note Date: 07/20/21 Chief Complaint: Short of breath History of presenting complaint: This is a very pleasant 86-year-old patient of Dr. Jerome Monroe. Chronic stable medical conditions include COPD, hypertension, hyperlipidemia, sleep apnea, hypothyroid. Permanent pacemaker, CKD Does use CPAP. Currently at [facility] on the [facility] for inpatient rehab under . Patient was sent in for low oxygen. Patient gets easily short of breath. Is able to walk a few steps. Has a cough. Had not used her CPAP overnight. was noted to be confused at the [facility]. She had also taken her CPAP off a sleepy and pulse ox was in the high 70s. His oxygen supplementation and cognition and com munication both improved. Patient found to be in a paced rhythm. Denies any fever and chills. No sputum. July 19: Patient refused a CPAP last night. Was a bit confused. Breathing better this morning. Up in a chair. More coherent. Discussed with the patient. Will use a CPAP. Also discussed with respiratory therapist. Severe hypokalemia. Last night patient had refused oral potassium. Supplement again today. July 20: Patient refused CPAP last night. Diet. Eating. Potassium getting in place. IV ceftriaxone Review of systems: Was done for constitutional, cardiovascular, GI, pulmonary. relevant finding as above Active Medications Acetaminophen (Acetaminophen Tab 325 Mg Tab) 650 mg PO Q6HR PRN PRN Reason: Mild Pain or Fever > 100.5 Al Hydroxide/Mg Hydroxide (Mag Hydrox/Al Hydrox/Simeth 30 Ml Cup) 15 ml PO Q6HR PRN PRN Reason: Indigestion Albuterol/Ipratropium (Ipratropium-Albuterol 3 Ml Neb) 3 ml INHALATION RT-Q4H PRN PRN Reason: Shortness Of Breath Or Wheezing Albuterol/Ipratropium (Ipratropium-Albuterol 3 Ml Neb) 3 ml INHALATION RT-Q4H [facility] Last Admin: 07/20/21 15:33 Dose: 3 ml Documented by: Alprazolam (Alprazolam 0.25 Mg Tab) 0.25 mg PO Q8H PRN PRN Reason: INCREASED ANXIETY Last Admin: 07/19/21 19:18 Dose: 0.25 mg Documented by: Apixaban (Apixaban 2.5 Mg Tablet) 2.5 mg PO BID [facility]; Protocol Last Admin: 07/20/21 09:59 Dose: 2.5 mg Documented by: Ascorbic Acid (Ascorbic Acid 500 Mg Tab) 1,000 mg PO DAILY [facility] Last Admin: 07/20/21 10:00 Dose: 1,000 mg Documented by: Aspirin (Aspirin 81 Mg) 81 mg PO DAILY [facility] Last Admin: 07/20/21 09:59 Dose: 81 mg Documented by: Atorvastatin Calcium (Atorvastatin 20 Mg Tab) 20 mg PO HS [facility] Last Admin: 07/19/21 19:58 Dose: 20 mg Documented by: Bisacodyl (Bisacodyl 5 Mg Tablet.Dr) 10 mg PO DAILY [facility] Last Admin: 07/20/21 09:59 Dose: 10 mg Documented by: Budesonide (Budesonide 0.5 Mg/2 Ml Nebu) 0.5 mg INHALATION RT-BID [facility] Last Admin: 07/20/21 08:00 Dose: Not Given Documented by: Calcium Carbonate (Calcium Carb-Vit D 500 Mg-5 Mcg Tab) 3 each PO HS [facility] Last Admin: 07/19/21 20:26 Dose: Not Given Documented by: Calcium Carbonate/Glycine (Calcium Carbonate 500 Mg Chewable) 1,000 mg PO Q4HR PRN PRN Reason: Dyspepsia Famotidine (Famotidine 20 Mg Tab) 10 mg PO DAILY [facility] Last Admin: 07/20/21 09:59 Dose: 10 mg Documented by: Furosemide (Furosemide 40 Mg Tab) 40 mg PO Q12H [facility] Ceftriaxone Sodium 1 gm/ (Sodium Chloride) 50 mls @ 100 mls/hr IVPB Q12HR [facility] Last Admin: 07/20/21 09:58 Dose: 100 mls/hr Documented by: Lactulose (Lactulose 20 Gm/30 Ml Cup) 20 gm PO DAILY PRN PRN Reason: Constipation Levothyroxine Sodium (Levothyroxine 125 Mcg Tab) 125 mcg PO DAILY@0600 [facility] Last Admin: 07/20/21 05:48 Dose: Not Given Documented by: Melatonin (Melatonin 3 Mg Tablet) 3 mg PO HS PRN PRN Reason: Insomnia Last Admin: 07/19/21 22:36 Dose: 3 mg Documented by: Metoprolol Tartrate (Metoprolol Tartrate 25 Mg Tab) 25 mg PO BID [facility] Last Admin: 07/20/21 10:00 Dose: 25 mg Documented by: Miscellaneous Information (Potassium Replacement Protocol 1 Each Misc) 1 each MISCELLANE DAILY PRN; Protocol PRN Reason: Per Protocol Montelukast Sodium (Montelukast 10 Mg Tab) 10 mg PO HS [facility] Last Admin: 07/19/21 20:26 Dose: 10 mg Documented by: Multivitamins (Multivitamins, Thera 1 Each Tab) 1 each PO DAILY [facility] Last Admin: 07/20/21 10:00 Dose: 1 each Documented by: Naloxone HCl (Naloxone 0.4 Mg/Ml 1 Ml Vial) 0.2 mg IV Q2M PRN PRN Reason: Opioid Reversal Ondansetron HCl (Ondansetron 4 Mg/2 Ml Vial) 4 mg IVP Q8HR PRN PRN Reason: Nausea And Vomiting Last Admin: 07/19/21 03:14 Dose: 4 mg Documented by: Polyethylene Glycol (Polyethylene Glycol 3350 17 Gm Powd.Pack) 17 gm PO DAILY PRN PRN Reason: Constipation Pyridoxine HCl (Pyridoxine 50 Mg Tab) 100 mg PO DAILY [facility] Last Admin: 07/20/21 10:00 Dose: 100 mg Documented by: Tramadol HCl (Tramadol 50 Mg Tab) 50 mg PO Q4H PRN PRN Reason: Moderate to Severe Pain Past medical history to include: COPD, hypertension, hyperlipidemia, obstructive sleep apnea uses CPAP, hypothyroid, permanent pacemaker for heart block, CK D, bleeding peptic ulcer disease Social history: Patient stopped smoking in 1974. Currently at [facility]. Family history: Reviewed, noncontributory to presentation Physical examination: VITAL SIGNS:97.4, 68, 20, 140/72, 90% on room air GENERAL: Laying in bed, awake, tired EYES: Pupils equal. Conjunctiva normal. HEENT: External appearance of nose and ears normal, oral cavity grossly normal. NECK: Short thick neck unable to assess JVD, no mass palpable. HEART: First and second heart sounds are normal; mild edema. LUNGS: Respiratory rate increased; decreased breath sounds. ABDOMEN: Soft, nontender, liver spleen not palpable, no masses palpable. PSYCH: Answering questions MUSCULAR skeletal: Evidence of OA INVESTIGATIONS, reviewed in the clinical context: July 20: Potassium 5.4 bicarb 28 and 70 creatinine 2.89 July 19: Sodium 141 potassium 2.9 bicarb 44 BUN 60 creatinine 1.76 Pro-calcitonin 0.19 White count 8.8 hemoglobin 12.8 platelets 199 d-dimer 0.26 sodium 138 potassium 2.5 bicarb 14. 67 creatinine 2.01 Troponin I 0.026 proBNP 3840 Coronavirus [PCR]: Not detected EKG tracing personally reviewed by me-ventricular paced rhythm: Fluid in the fissure, pulmonary edema, infiltrate. Right greater than left Doppler ultrasound: Right/left leg: Both negative for DVT Previous labs: June 21: BUN 87 creatinine 2.45 Assessment and plan: -Acute congestive heart failure exacerbation. EF not known: Improved Received IV Lasix. Change to by mouth Lasix.. -pneumonia suspected gram-negative organism: Better IV ceftriaxone 1 g every 12. Change to by mouth Omnicef -Acute hypoxic encephalopathy on presentation Patient counseled about importance of using her CPAP. 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 Pulmicort 0.5 mg twice a day -Hyperlipidemia Lipitor 20 mg daily at bedtime -Essential hypertension Lopressor 25 mg twice a day -Obstructive sleep apnea uses CPAP -Hypothyroid 125 g Synthroid daily -Primary osteoarthritis Pain medications as needed -Chronic gait dysfunction, uses a walker at baseline Fall precautions -Severe hypokalemia from diuresis and bronchodilators Replace potassium Changed to by mouth Lasix. DC IV ceftriaxone. Omnicef 300 mg twice a day. Repeat labs.
[2021-07-20] MEDS ORDERED: FUROSEMIDE 40 MG TAB PO SCH (17:00)
[2021-07-20 20:33] VITALS: BP 112/62
[2021-07-20] MEDS ORDERED: CEFDINIR 300 MG CAP PO SCH (21:00)
[2021-07-20] MEDS: ATORVASTATIN 20 MG TAB PO SCH (21:44)
[2021-07-20] MEDS: MONTELUKAST 10 MG TAB PO SCH (21:44)
[2021-07-20] MEDS: CALCIUM CARB-VIT D 500 MG-5 MCG TAB PO SCH (22:05)
[2021-07-21 04:24] VITALS: PULSE 52; RESP 18; TEMP 97.6
[2021-07-21 04:25] LABS: Glucose,Whole Blood 38 mg/dL (75-99)
[2021-07-21] MEDS ORDERED: GLUCAGON 1 MG/ML VIAL IM STA (04:29)
[2021-07-21] MEDS ORDERED: DEXTROSE 50% SYRINGE 50 ML IVP ONE ×2 (04:30→04:43)
[2021-07-21] MEDS ORDERED: EPINEPHrine (PF) 1 MG/ML AMP ONE (04:30)
[2021-07-21] MEDS ORDERED: CALCIUM CHLORIDE 100 MG/ML 10 ML SYRINGE ONE (04:30)
[2021-07-21] MEDS ORDERED: SODIUM BICARB 8.4% 50 ML SYR (1 MEQ/ML) ONE (04:30)
[2021-07-21 04:53] LABS: Glucose,Whole Blood 39 mg/dL (75-99)
[2021-07-21 04:53] LABS: Glucose,Whole Blood 378 mg/dL (75-99)
[2021-07-21 04:53] LABS: Glucose,Whole Blood 86 mg/dL (75-99)
--- NOTE | 2021-07-21 05:42 | P.EN ---
Code Blue Note Activated at 4:19 AM. Arrived at the scene shortly after. Reviewed the chart and discussed the case with the RN. The patient was found to be unresponsive and pulseless by the staff during scheduled vitals check. ACLS protocol was initiated and high quality CPR was performed. Upon chart review, the patient had a history of CHF and was admitted for acute CHF exacerbation, acute renal failure, and multiple electrolyte derangements. Upon arrival at the scene, the patient was in asystole. She initially did not have an IV access, for which an IO catheter was placed by the ED physician. The patient was initially given epinephrine via ET tube 2. Blood glucose was initially noted to be 38. She was given D50 2. In total, the patient received epinephrine IV push 4, sodium bicarbonate 1, and calcium chloride 1. Subsequent blood glucose was measured at 378. The patient continued to be in asystole. CPR was halted at 4:51 AM. Family was notified by the RN. Please refer to the code sheet for further details. Total time spent providing critical care for this patient: 45 minutes
--- NOTE | 2021-07-21 13:58 | P.DS ---
Providers Date of admission: 07/18/21 08:12 Expected date of discharge: 07/21/21 Attending physician: Tye Pierson Consults: 07/18/21 19:26 Consult Physician Routine Consulting Provider: [facility] Consult Reason/Comments: CHF Do you want consulting provider notified?: Yes Primary care physician: [facility] Course: Chief Complaint: Short of breath History of presenting complaint: This is a very pleasant 86-year-old patient of Dr. Jerome Monroe. Chronic stable medical conditions include COPD, hypertension, hyperlipidemia, sleep apnea, hypothyroid. Permanent pacemaker, CKD Does use CPAP. Currently at [facility] on the [facility] for inpatient rehab under . Patient was sent in for low oxygen. Patient gets easily short of breath. Is able to walk a few steps. Has a cough. Had not used her CPAP overnight. was noted to be confused at the [facility]. She had also taken her CPAP off a sleepy and pulse ox was in the high 70s. His oxygen supplementation and cognition and communication both improved. Patient found to be in a paced rhythm. Denies any fever and chills. No sputum. July 19: Patient refused a CPAP last night. Was a bit confused. Breathing better this morning. Up in a chair. More coherent. Discussed with the patient. Will use a CPAP. Also discussed with respiratory therapist. Severe hypokalemia. Last night patient had refused oral potassium. Supplement again today. July 20: Patient refused CPAP last night. Diet. Eating. Potassium getting in place. IV ceftriaxone July 21: Early today patient was found unresponsive and pulseless. CODE BLUE was called. Patient succumbed to the same. Consultation: Cardiology associates Past medical history to include: COPD, hypertension, hyperlipidemia, obstructive sleep apnea uses CPAP, hypothyroid, permanent pacemaker for heart block, CK D, bleeding peptic ulcer disease Social history: Patient stopped smoking in 1974. Currently at [facility] on the [facility]. Family history: Reviewed, noncontributory to presentation INVESTIGATIONS, reviewed in the clinical context: July 20: Potassium 5.4 bicarb 28 and 70 creatinine 2.89 July 19: Sodium 141 potassium 2.9 bicarb 44 BUN 60 creatinine 1.76 Pro-calcitonin 0.19 White count 8.8 hemoglobin 12.8 platelets 199 d-dimer 0.26 sodium 138 potassium 2.5 bicarb 14. 67 creatinine 2.01 Troponin I 0.026 proBNP 3840 Coronavirus [PCR]: Not detected EKG tracing personally reviewed by me-ventricular paced rhythm: Fluid in the fissure, pulmonary edema, infiltrate. Right greater than left Doppler ultrasound: Right/left leg: Both negative for DVT Previous labs: June 21: BUN 87 creatinine 2.45 Cause of : Chronic obstructive pulmonary disease Assessment and plan: -Acute congestive heart failure exacerbation. EF not known: Improved Received IV Lasix. Change to by mouth Lasix.. -pneumonia suspected gram-negative organism: Better IV ceftriaxone 1 g every 12. Change to by mouth Omnicef -Acute hypoxic encephalopathy on presentation Patient counseled about importance of using her CPAP. 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 Pulmicort 0.5 mg twice a day -Hyperlipidemia Lipitor 20 mg daily at bedtime -Essential hypertension Lopressor 25 mg twice a day -Obstructive sleep apnea uses CPAP -Hypothyroid 125 g Synthroid daily -Primary osteoarthritis Pain medications as needed -Chronic gait dysfunction, uses a walker at baseline Fall precautions -Severe hypokalemia from diuresis and bronchodilators Replace potassium Disposition: Patient Plan - Discharge Summary Discharge Rx Participant: No New Discharge Prescriptions: Discontinued Levothyroxine Sodium [Synthroid] 125 mcg PO DAILY@0600 Aspirin EC [Ecotrin Low Dose] 81 mg PO DAILY Pyridoxine HCl (Vitamin B6) [Vitamin B-6] 100 mg PO DAILY Ipratropium-Albuterol Nebulize [Duoneb 0.5 mg-3 mg/3 ml Soln] 3 ml INHALATION RT-Q4H Calcium Citrate/Vitamin D3 [Calcitrate + Vit D Caplet] 3 tab PO HS [place]-3 Fatty Acids/Fish Oil [Fish Oil 1,000 mg Softgel] 1 cap PO DAILY Multivitamins, Thera [Multivitamin (formulary)] 1 tab PO DAILY Montelukast [Singulair] 10 mg PO HS Budesonide [Pulmicort] 0.5 mg INHALATION RT-BID Atorvastatin [Lipitor] 20 mg PO HS tab Ascorbic Acid [Vitamin C] 1,000 mg PO DAILY tab Potassium Chloride ER [K-Dur 10] 10 meq PO BID Apixaban [Eliquis] 2.5 mg PO BID Metoprolol Tartrate [Lopressor] 25 mg PO BID tab ALPRAZolam [Xanax] 0.25 mg PO Q8H PRN #12 tab PRN Reason: INCREASED ANXIETY metOLazone 2.5 mg PO TUTHSA Ipratropium-Albuterol Nebulize [Duoneb 0.5 mg-3 mg/3 ml Soln] 3 ml INHALATION RT-Q4H PRN PRN Reason: Shortness Of Breath Or Wheezing Famotidine [Pepcid] 10 mg PO DAILY Polyethylene Glycol 3350 [Miralax] 17 gm PO DAILY PRN PRN Reason: Constipation traMADol HCL [Ultram] 50 mg PO Q4H PRN #18 tab PRN Reason: Moderate To Severe Pain Bisacodyl 10 mg PO DAILY Furosemide [Lasix] 40 mg PO BID@0600,1200 Discharge Disposition: - Preliminary Cause of Preliminary Cause of : Chronic obstructive pulmonary disease
--- NOTE | 2021-07-22 13:54 | ECHOF ---
Referral Reason:CHF MEASUREMENTS -------- HEIGHT: 162.6 cm WEIGHT: 113.4 kg BP: RVIDd: 3.4 cm (< 3.3) IVSd: 1.1 cm (0.6 - 1.1) LVIDd: 5.7 cm (3.9 - 5.3) LVPWd: 1.4 cm (0.6 - 1.1) IVSs: 1.5 cm LVIDs: 4.2 cm LVPWs: 1.8 cm LA Diam: 4.9 cm (2.7 - 3.8) Ao Diam: 2.5 cm (2.0 - 3.7) MV EXCURSION: 22.993 mm (> 18.000) MV EF SLOPE: 96 mm/s (70 - 150) EPSS: 0.3 cm AV maxP.32 mmHg AV meanP.64 mmHg RAP: 5.00 mmHg RVSP: 66.81 mmHg FINDINGS -------- Paced rhythm. This was a technically adequate study. The left ventricular size is normal. Overall left ventricular systolic function is low-normal with, an EF between 50 - 55 %. The right ventricle is mild to moderately enlarged. The left atrium is markedly dilated. The right atrial size is normal. There is mild aortic stenosis present. Peak/mean gradient across the Aortic Valve is 21.32mmHg / 9. 64mmHg. Tavar procedure done 09/02. Mild mitral annular calcification present. Mild mitral regurgitation is present. Mild tricuspid regurgitation present. There is moderate pulmonary hypertension. The right ventric ular systolic pressure, as measured by Doppler, is 66.81mmHg. Trace/mild (physiologic) pulmonic regurgitation. Echo free space indicative of a pericardial fat pad. CONCLUSIONS -------- 1. The left ventricular size is normal. 2. Overall left ventricular systolic function is low-normal with, an EF between 50 - 55 %. 3. The right ventricle is mild to moderately enlarged. 4. The left atrium is markedly dilated. 5. The right atrial size is normal. 6. There is mild aortic stenosis present. 7. Peak/mean gradient across the Aortic Valve is 21.32mmHg / 9.64mmHg. 8. Tavar procedure done 09/02. 9. Mild mitral annular calcification present. 10. Mild mitral regurgitation is present. 11. Mild tricuspid regurgitation present. 12. There is moderate pulmonary hypertension. 13. The right ventricular systolic pressure, as measured by Doppler, is 66.81mmHg. 14. Trace/mild (physiologic) pulmonic regurgitation. 15. Echo free space indicative of a pericardial fat pad. [employer]MENT MECHANIC: Ashleigh Terrell RDCS
== END 2021-07-21 07:33 | disposition expired | DRG 291 ==
LOC: EC 06:21 → 5NMEDONC 08:12
PROVIDERS: ADMIT Hospitalist; ATTEND Hospitalist
PROC: 5A09457 Assistance with Respiratory Ventilation, 24-96 Consecutive Hours, Continuous Positive Airway Pressure (ICD-10-PCS; 2021-07-18)
PROC: 0BH17EZ Insertion of Endotracheal Airway into Trachea, Via Natural or Artificial Opening (ICD-10-PCS; principal; 2021-07-21)
PROC: 5A12012 Performance of Cardiac Output, Single, Manual (ICD-10-PCS; principal; 2021-07-21)
PROC: 3E033XZ Introduction of Vasopressor into Peripheral Vein, Percutaneous Approach (ICD-10-PCS; principal; 2021-07-21)
DX: I13.0 Hypertensive heart and chronic kidney disease with heart failure and stage 1 through stage 4 chronic kidney disease, or unspecified chronic kidney disease (principal); I50.33 Acute on chronic diastolic (congestive) heart failure; J15.6 Pneumonia due to other Gram-negative bacteria; G93.1 Anoxic brain damage, not elsewhere classified; J44.0 Chronic obstructive pulmonary disease with (acute) lower respiratory infection; N17.9 Acute kidney failure, unspecified; I44.2 Atrioventricular block, complete; Z68.41 Body mass index [BMI] 40.0-44.9, adult; N18.30 Chronic kidney disease, stage 3 unspecified; I46.2 Cardiac arrest due to underlying cardiac condition; Z87.891 Personal history of nicotine dependence; E03.9 Hypothyroidism, unspecified; E66.01 Morbid (severe) obesity due to excess calories; I25.10 Atherosclerotic heart disease of native coronary artery without angina pectoris; I48.0 Paroxysmal atrial fibrillation; I08.3 Combined rheumatic disorders of mitral, aortic and tricuspid valves; Z79.01 Long term (current) use of anticoagulants; Z95.2 Presence of prosthetic heart valve; I95.9 Hypotension, unspecified; Z20.822 Contact with and (suspected) exposure to COVID-19; M19.91 Primary osteoarthritis, unspecified site; E87.6 Hypokalemia; G47.33 Obstructive sleep apnea (adult) (pediatric); E78.5 Hyperlipidemia, unspecified; T46.5X5A Adverse effect of other antihypertensive drugs, initial encounter; T48.6X5A Adverse effect of antiasthmatics, initial encounter; T50.2X5A Adverse effect of carbonic-anhydrase inhibitors, benzothiadiazides and other diuretics, initial encounter; E83.52 Hypercalcemia; R32 Unspecified urinary incontinence; R26.9 Unspecified abnormalities of gait and mobility; F41.9 Anxiety disorder, unspecified; Z79.82 Long term (current) use of aspirin; Z53.20 Procedure and treatment not carried out because of patient's decision for unspecified reasons; Z79.890 Hormone replacement therapy; Z79.899 Other long term (current) drug therapy; Z85.038 Personal history of other malignant neoplasm of large intestine; Z85.42 Personal history of malignant neoplasm of other parts of uterus; Z90.710 Acquired absence of both cervix and uterus; Z95.0 Presence of cardiac pacemaker; Z96.612 Presence of left artificial shoulder joint; Z71.89 Other specified counseling; Z85.43 Personal history of malignant neoplasm of ovary; Z87.11 Personal history of peptic ulcer disease; Z90.49 Acquired absence of other specified parts of digestive tract; Z98.890 Other specified postprocedural states
CPT/HCPCS: 36415; 71046; 80048; 80053; 83605; 83735; 83880; 84132; 84145; 84484; 85025; 85379; 85610; 85730; 87635; 93005; 93306; 93970; 94640; 99285